=== PATIENT | male | born 1935 | race Caucasian/White ===

== ENCOUNTER → 2020-11-27 13:37 | Outpatient (REF) | payer MEDICARE, SELFPAY ==
--- NOTE | 2020-11-27 14:00 | CA_ITS ---
Transthoracic Echocardiogram Patient (Last, First, Middle): Keo Silva A Gender: Male Date of : 1935 Age: 85 Procedure Date: 11/27/2020 Procedure Type: Transthoracic Echocardiogram Location: OP Height: 177.8 cm Weight: 86.18 kg BSA: 2.04 m2 Heart Rate: bpm BP: 143 / 70 mmHg Communications Controller: JOHN Schrader MD: Silvestre Ross MD Cnc Milling Machinist: Richard Hunt MD Symptoms: I48.91 PERSISTENT AFIB, R06.02 SOB VALVULAR HEART DISEASE, Study Quality: Fair ECG Rhythm: Atrial Fibrillation Conclusions: - 1. Normal LV systolic function 2. Moderate left atrial enlargement 3. Mild aortic and mitral regurgitation 4. Normal RV systolic pressure 5. No pericardial effusion Findings Left Ventricle Normal left ventricular size, thickness, and systolic function. The visually estimated ejection fraction is between 55-60%. Diastolic function is indeterminate on the basis of available data. Right Ventricle Mildly increased right ventricular cavity size. There is normal right ventricular systolic function. Atria The left atrium is moderately dilated. There is no evidence of interatrial shunt. The right atrium is mildly dilated. Aortic Valve There is mild calcification of the aortic valve. There is no aortic valve stenosis. There is mild aortic valve regurgitation. Mitral Valve There is mild anterior and posterior mitral leaflet thickening. There is mild mitral valve regurgitation. There is no mitral valve stenosis. Pulmonic Valve The pulmonic valve was not well visualized. Tricuspid Valve Likely normal tricuspid valve structure and function. There is mild tricuspid valve regurgitation. The right ventricular systolic pressure is normal. The right ventricular systolic pressure is 35 mmHg. Normal right atrial pressure. There is no evidence of pulmonary hypertension. Great Vessels All visible segments of the aorta are normal in size. The pulmonary artery was not well visualized. Venous The inferior vena cava is normal in size and collapses greater than 50% with inspiration. Pericardium/Pleural There is no evidence of pericardial effusion. Prior Study Comparison Changes noted compared to prior study dated: 02/01/2018. RV systolic pressure measured on this study are within normal limits Measurements M-Mode Liner Measurements Normals - Women/Men AOV Cusps: 1.90 1.5-2.6 cm/m2 2D Linear Measurements IVSd: 1.16 0.6-0.9/0.6-1.0 cm LVIDd: 4.26 3.9-5.3/4.2-5.9 cm LVIDd Index: 2.09 2.4-3.2/2.2-3.1 cm/m2 LVIDs: 3.06 2.0-3.6 cm LVPWd: 1.18 0.7-1.1 cm Ao Root: 3.40 2.1-3.5 cm LA Diam: 4.50 2.7-3.8/3.0-4.0 cm LAIDs Index: 2.21 1.5-2.3 cm/m2 LV Mass: 218.59 67-162/88-224 g LV Mass Index: 107.15 43-95/49-115 g/m2 LVOT Diam: 2.30 3.0+(-)1.3 cm 2D Systolic Function EF 4C: 58.40 >55% EF 2C: 53.50 >55% EF BiP: 55.90 >55% Mitral Valve MV Pk E: 0.98 MV Decel Time: 127.00 PHT: 37.00 MVA PHT: 5.95 Decel [place]: 7.73 Aortic Valve AoV Pk Jomar: 1.17 AoV Pk Grad: 5.00 AI Pk Jomar: 3.91 AI [place]: 1.48 LVOT LVOT Pk Jomar: 0.72 LVOT Mn Jomar: 0.53 LVOT VTI: 0.17 LVOT Pk Grad: 2.00 LVOT Mn Grad: 1.00 LVOT Diam: 2.30 LVOT Area: 4.15 Diastolic Function MV Pk E: 0.98 Tricuspid Valve TR Pk Jomar: 2.83 TR Pk Grad: 32.00 RA Press: 3.00 RVSP: 35.00 Great Vessels Aorta Ao Root-2D: 3.40 2.0-3.7 cm Ao Asc: 3.60 2.1-3.4 cm Pulmonary Valve PV Pk Jomar: 0.99 Peak PV Grad: 4.00 Updated in Other Vendor System with Status of Final Richard Hunt MD electronically signed on 11/28/2020 1:13:50 PM with status of Final
== END ==
LOC: HO.CARD 13:37
PROVIDERS: Visit Provider Internal Medicine
DX: I48.19 Other persistent atrial fibrillation (principal); I38 Endocarditis, valve unspecified; R06.02 Shortness of breath
CPT/HCPCS: 93306

== ENCOUNTER → 2020-12-04 12:41 | Outpatient (REF) | payer MEDICARE, SELFPAY ==
--- NOTE | 2020-12-04 13:00 | ECG_ITS ---
Hook-up date: 2020-12-04 12:56:00 Duration: 47:59:00 Test Indications: PERSISTENT AFIB Medications: 61162 QRS complexes 289 Ventricular ectopics which represent <1 % of total QRS comp. * Supraventricular ectopics which represent % of total QRS comp. * Paced QRS complexs which represent % of total QRS comp. VENTRICULAR ECTOPY 279 Isolated 0 Bigeminal Cycles 5 Couplets 0 Runs 0 Beats in Runs * Beats LONGEST at * BPM at :: -- * Beats FASTEST at * BPM at :: -- SUPRAVENTRICULAR ECTOPY * Isolated * Couplets * Runs * Beats in Runs * Beats LONGEST at * BPM at :: -- * Beats FASTEST at * BPM at :: -- HEART RATES 39 MIN at 03:00:57 2020-12-05 66 AVG 165 MAX at 06:22:48 2020-12-05 LONGEST RR 2.0640 secs at 00:34:36 2020-12-05 S-T LEVELS Channel 1 - 128 mm at 12:56:00 2020-12-04 - 128 mm at 12:56:00 2020-12-04 Channel 2 - 128 mm at 12:56:00 2020-12-04 - 128 mm at 12:56:00 2020-12-04 Channel 3 - 128 mm at 03:21:51 -- - 128 mm at 03:21:51 Basic rhythm Atrial fibrillation No long pause or profound bradycardia Good rate control with average HR of 66 bpm Occasional Premature ventricular complexes Patient did not report any symptoms in the diary Referred By: Silvestre Ross Overread By: TAWNYA WASSERMAN MD
== END ==
LOC: HO.CARD 12:41
PROVIDERS: Visit Provider Internal Medicine
DX: I48.19 Other persistent atrial fibrillation (principal)
CPT/HCPCS: 93225; 93226

== ENCOUNTER → 2021-01-07 09:33 | Outpatient (BNVA) | payer MEDICARE, SELFPAY | PROVIDERS: Visit Provider Internal Medicine | DX: I48.19 Other persistent atrial fibrillation (principal); I25.10 Atherosclerotic heart disease of native coronary artery without angina pectoris; I38 Endocarditis, valve unspecified | CPT/HCPCS: 93005; 99212 ==

== ENCOUNTER 2021-02-23 06:11 | Outpatient (REF) | payer MEDICARE, SELFPAY ==
[2021-02-23 11:25] LABS: MANUAL DIFF FLAG NO
[2021-02-23 11:38] LABS: Basophils Percent Auto 0.9 % (0-2); Eosinophils Absolute Auto 0.1 X10*3/uL (0.0-0.4); Eosinophils Percent Auto 2.3 % (0-4); Hematocrit 32.9 % (42-52); Hemoglobin 10.7 g/dl (14.0-18.0); Imm Gran Abs Auto 0.02 X10*3/uL (0.00-0.03); Imm Gran Pct Auto 0.5 % (0.0-0.4); Lymphocytes Absolute Auto 1.3 X10*3/uL (1.2-4.9); Mean Corpuscular HGB Conc 32.5 g/dl (31.0-36.0); Mean Corpuscular Hemoglobin 33.9 pg (27.0-33.0); Mean Corpuscular Volume 104.1 fL (80-98); Monocytes Absolute Auto 0.5 X10*3/uL (0.1-1.2); Monocytes Percent Auto 10.7 % (2-11); NRBC Pct Auto 0.7 /100WBC (0.0-0.2); Neutrophils Absolute Auto 2.5 X10*3/uL (2.0-8.3); Neutrophils Percent Auto 56.6 % (45-73); Platelet Count 192 X10*3/uL (160-400); Red Blood Count 3.16 X10*6/uL (4.60-5.80); Red Cell Distribution Width 15.3 % (11.0-16.0); White Blood Count 4.4 X10*3/uL (4.8-10.8)
[2021-02-23 12:09] LABS: Alanine Aminotransferase 18 U/L (0-40); Anion Gap 14 (12-20); Aspartate Amino Transferase 17 U/L (5-37); Blood Urea Nitrogen 29 mg/dL (9-16); Calcium 8.6 mg/dL (8.4-10.2); Carbon Dioxide 21 mmol/L (22-29); Chloride 105 mmol/L (96-108); Cholesterol 106 mg/dL; Estimated Glomerular Filt Rate 59; Glucose Fasting 117 mg/dL (60-99); HDL Cholesterol 53 mg/dL; LDL Cholesterol Calculated 44 mg/dl; Potassium 4.5 mmol/L (3.3-5.1); Sodium 135 mmol/L (135-145); Triglycerides 48 mg/dL
[2021-02-23 12:10] LABS: TSH reflex Free T4 2.99 uIU/mL (0.32-4.0); Vitamin D 25-OH Total 28.1 ng/mL (>30)
[2021-02-23 12:24] LABS: Folate 18.8 ng/mL (> or = 4.0); Vitamin B12 400 pg/mL (200-900)
== END 2021-02-23 06:12 | disposition home or self-care (01) ==
LOC: HO.HMGCLDS 06:11
PROVIDERS: PCP Internal Medicine; Visit Provider Internal Medicine
DX: F32.9 Major depressive disorder, single episode, unspecified (principal); I25.10 Atherosclerotic heart disease of native coronary artery without angina pectoris; I48.19 Other persistent atrial fibrillation; R42 Dizziness and giddiness; I10 Essential (primary) hypertension
CPT/HCPCS: 36415; 80048; 80061; 82306; 82607; 82746; 84443; 84450; 84460; 85025

== ENCOUNTER 2021-05-22 06:35 | Outpatient (REF) | payer MEDICARE, SELFPAY ==
--- NOTE | ~2021-05-22 | XR_ITS ---
EXAMINATION: XR SHOULDER, LEFT CLINICAL INFORMATION: Left shoulder pain. COMPARISON: None TECHNIQUE: AP external rotation, Grashey, scapular Y, and axillary views of the left shoulder. FINDINGS: Elevation of the humeral head, likely indicating an underlying rotator cuff tendon tear. Acromioclavicular marginal osteophytes with lateral subacromial spurring. Glenohumeral joint space narrowing with marginal osteophytes. No osseous erosion. No acute fracture. XR/XR shoulder LT min 2V IMPRESSION: Elevation of the humeral head, likely indicating an underlying rotator cuff tendon tear. 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
[2021-05-22 11:09] LABS: MANUAL DIFF FLAG NO
[2021-05-22 11:40] LABS: Basophils Percent Auto 0.6 % (0-2); Eosinophils Absolute Auto 0.1 X10*3/uL (0.0-0.4); Eosinophils Percent Auto 2.1 % (0-4); Hematocrit 31.8 % (42-52); Hemoglobin 10.5 g/dl (14.0-18.0); Imm Gran Abs Auto 0.03 X10*3/uL (0.00-0.03); Imm Gran Pct Auto 0.5 % (0.0-0.4); Lymphocytes Absolute Auto 1.1 X10*3/uL (1.2-4.9); Lymphocytes Percent Auto 18.1 % (20-40); Mean Corpuscular Hemoglobin 34.2 pg (27.0-33.0); Mean Corpuscular Volume 103.6 fL (80-98); Mean Platelet Volume 11.7 fL (9.4-12.4); Monocytes Absolute Auto 0.6 X10*3/uL (0.1-1.2); NRBC Pct Auto 1.1 /100WBC (0.0-0.2); Neutrophils Absolute Auto 4.3 X10*3/uL (2.0-8.3); Neutrophils Percent Auto 68.7 % (45-73); Platelet Count 213 X10*3/uL (160-400); Red Blood Count 3.07 X10*6/uL (4.60-5.80); Red Cell Distribution Width 14.9 % (11.0-16.0); White Blood Count 6.2 X10*3/uL (4.8-10.8)
[2021-05-22 12:20] LABS: Alanine Aminotransferase 15 U/L (0-40); Anion Gap 13 (12-20); Aspartate Amino Transferase 15 U/L (5-37); Blood Urea Nitrogen 20 mg/dL (9-16); Carbon Dioxide 24 mmol/L (22-29); Chloride 103 mmol/L (96-108); Cholesterol 106 mg/dL; Estimated Glomerular Filt Rate 53; Glucose Fasting 119 mg/dL (60-99); HDL Cholesterol 52 mg/dL; Iron 145 mcg/dL (45-160); LDL Cholesterol Calculated 43 mg/dl; Potassium 4.4 mmol/L (3.3-5.1); Sodium 136 mmol/L (135-145); Triglycerides 58 mg/dL
[2021-05-22 12:22] LABS: Vitamin D 25-OH Total 57.6 ng/mL (>30)
[2021-05-24 03:57] LABS: Folate 17.2 ng/mL (> or = 4.0); Vitamin B12 445 pg/mL (200-900)
[2021-05-26 15:06] LABS: Percent Iron Saturation 55 % (15-50); Total Iron Binding Capacity 263 mcg/dL (228-428); Unsaturated Iron Binding 118 ug/dL
== END 2021-05-22 06:36 | disposition home or self-care (01) ==
LOC: HO.HMGCX 06:35
PROVIDERS: PCP Internal Medicine; Visit Provider Internal Medicine
DX: I48.19 Other persistent atrial fibrillation (principal); R42 Dizziness and giddiness; I25.10 Atherosclerotic heart disease of native coronary artery without angina pectoris; G25.3 Myoclonus; D53.9 Nutritional anemia, unspecified; I10 Essential (primary) hypertension; M25.512 Pain in left shoulder
CPT/HCPCS: 36415; 73030; 80048; 80061; 82306; 82607; 82746; 83540; 84450; 84460; 85025

== ENCOUNTER → 2021-05-28 12:32 | Outpatient (BNVA) | payer MEDICARE, SELFPAY | PROVIDERS: Visit Provider Orthopaedic Surgery | DX: M75.102 Unspecified rotator cuff tear or rupture of left shoulder, not specified as traumatic (principal); M12.812 Other specific arthropathies, not elsewhere classified, left shoulder | CPT/HCPCS: 20610; 99202; J1040 ==

== ENCOUNTER 2021-06-08 10:02 | Outpatient (REF) | payer MEDICARE, SELFPAY ==
--- NOTE | 2021-06-08 12:15 | MHC.AU.AHA ---
Adult Audiological Evaluation Date of Visit: 06/08/21 Needle Punch Machine Operator Used: Not Applicable Reason for Appointment: Audiologic re-evaluation due to increasing hearing difficulties. Keo notes he does not regularly wear his hearing aids due to the fact that sounds startle him when using the aids. He is also having difficulty with the right aid insertion and it is not staying in his ear well. When he uses the hearing aids, he typically just wears the left aid. Previous Hearing Test Results: 04/15/2020 [facility] Bilateral moderate to severe sensorineural hearing loss with 44% speech understanding for the right ear and 48% for the left ear at 80 dB HL. Ear History: History of occupational noise exposure?: Yes Medical History: Medical History: Heart Problems, High Blood Pressure, High cholesterol, History of neck surgery Medication List: Xarelto, Terazosin, Simvastatin, Atenolol, Tramadol, Vitamin D3 Hearing Instrument History- Right Ear: Maritime Officer: [employer] Model: [employer] 1600 MORENA-R Serial Number: [id number] Battery Size: Rechargeable Repair Warranty: 06/29/2021 Dispensed By: [facility] Date of Fittin04/13/2018 Hearing Instrument History- Left Ear: Maritime Officer: [employer] Model: [employer] 1600 MORENA-R Serial Number: [id number] Battery Size: Rechargeable Warranty: 06/29/2021 Dispensed By: [facility] Date of Fittin04/13/2018 Otoscopy: Right Ear: Partially occluded with cerumen Left Ear: Mostly occluding cerumen. Could not remove in office due to use of blood thinner Tympanometry: Tympanometry performed due to: To determine if cerumen blockage is fully occluding canal(s) Right Ear: Normal Middle Ear System (Type A) Left Ear: Normal Middle Ear System (Type A) Hearing Evaluation: Transducer(s) Used: Insert Earphones Bone Conduction Method: Conventional Audiometry Stimuli Used: Pure Tones Right Ear: Description of Hearing: Moderately-severe to profound sensorineural hearing loss Left Ear: Description of Hearing: Moderate to severe sensorineural hearing loss Speech Recognition Threshold (SRT): Method Used: Monitored Live Voice Stimuli Used: Right Ear: 55 dB HL Left Ear: 50 dB HL Word Discrimination: Method: Recorded Lists Word Lists Used: NU-6 Right Ear: 32% at 80 dB HL Left Ear: 56% at 80 dB HL Most Comfortable Level (MCL): Right Ear: 80 dB HL Left Ear: 80 dB HL Comparison: Compared to most recent evaluation: Overall hearing thresholds have decreased approximately 5 dB for both ears with speech discrimination ability decreasing from 44% in 2020 to 32% today. Speech understanding for the left ear has improved from 48% to 56% today. Interpretation of Results: It is likely Keo's right ear speech discrimination ability has decreased despite relatively stable hearing thresholds due to the fact he is not using the right aid. Extensively counseled about the need to use the aids every day, all day for the auditory system to remain stimulated for best benefit. Because Keo startles so often when wearing the aids, decreased the overall gain of the hearing aids to try to help him tolerate the sound better and increase the use of the aids. Provided a handout regarding Communication Strategies for the family to use to improve Keo's speech understanding as much as possible. Recommendations: -Follow-up with either Dr. Tsang or Otolarygologist Dr. Perera for cerumen removal. -Hearing aid maintenance performed today. -Reinstructed insertion of hearing aids. If Keo continues to have difficulties with insertion, advise appointment to take impressions of the ear for custom earmolds. -Audiological re-evaluation in one year. Will send a reminder card. Diagnosis: Primary Diagnosis: H90.3 Bilateral Sensorineural Hearing Loss Secondary Diagnosis: H61.22 Impacted Cerumen, Left Ear Services Performed: Comprehensive Audiological Evaluation (CPT 66208) Tympanometry (CPT 64793) Signature: Provider: Ignacia Santana, [facility]
== END 2021-06-08 10:03 | disposition home or self-care (01) ==
LOC: HO.SH 10:02
PROVIDERS: Visit Provider Internal Medicine
DX: H90.3 Sensorineural hearing loss, bilateral (principal); H61.22 Impacted cerumen, left ear
CPT/HCPCS: 92557; 92567

== ENCOUNTER 2021-11-12 07:24 | Day surgery (SDC) | payer MEDICARE, SELFPAY ==
--- NOTE | 2021-11-11 11:41 | P.CONAN_ITS ---
Documented by User: Lynnette Saul NP 11/11/21 11:49 HPI - Anesthesia Eval Consult details Narrative: 86yo M for Bone Marrow Biopsy Xarelto for afib Optimized per cardiology [facility] Active Problems Active Problems: All Active Problems (Updated 10/04/21 @ 03:15 by Ambika Tsang MD) Rotator cuff tear arthropathy of left shoulder (Acute) Chronic fatigue and malaise (Acute) Macrocytic anemia (Acute) Myoclonic jerking (Acute) Hearing loss (Acute) Cervical spondylosis with radiculopathy (Acute) Benign prostatic hyperplasia (Acute) Mild valvular heart disease (Acute) Depression (Acute) Atherosclerotic cardiovascular disease (Acute) Persistent atrial fibrillation (Acute) Past Medical History Medical History (Updated 10/04/21 @ 03:15 by Ambika Tsang MD) Anemia Atherosclerotic cardiovascular disease Benign prostatic hyperplasia Cervical spondylosis with radiculopathy Chronic fatigue and malaise Depression Hearing loss Left hydrocele Macrocytic anemia Mild valvular heart disease Myoclonic jerking Persistent atrial fibrillation Right rotator cuff tear Shoulder pain, left Family History Family History Father CVD (cardiovascular disease) Mother No problems noted. Surgical History Surgical History History of fusion of cervical spine History of heart artery stent Social History Social History Household Members: Spouse Housing: House Alcohol intake: current Alcohol intake frequency: a few times a month Alcohol type: beer Patient Tobacco Use Status: Former Tobacco user Tobacco use type: Cigarette Cigarette Packs Per Day: 0.5 Years Smoked: 1 e-Cigarette/Vaping Use: Never Used Second Hand Smoke Exposure: No Advance Directives: No Advance Directives Information Provided: Yes Current occupational status: retired Meds Allergies Allergy/AdvReac Type Severity Reaction Status Date / Time No Known Allergies Allergy Verified 10/04/21 02:56 [No Known Allergies*] Home Medications Medication Instructions Recorded Confirmed Last Taken Type terazosin 1 mg capsule 2 mg PO BEDTIME cap 01/07/21 10/04/21 Unknown History acetaminophen 650 mg 650 mg PO Q12H 02/22/21 10/04/21 Unknown History tablet,extended release (Arthritis Pain Reliever) cholecalciferol (vitamin D3) 125 125 mcg PO DAILY 05/18/21 10/04/21 Unknown History mcg (5,000 unit) capsule clonazepam 0.5 mg tablet 0.5 mg PO BID 09/06/21 10/04/21 Unknown History Exam Exam Date and Time: November 11, 2021 1141 Pertinent Lab Results Pertinent Lab Results: Laboratory Tests 05/22/21 07/05/21 09/06/21 06:40 09:28 09:32 WBC 7.6 Hgb 10.4 L Hct 32.0 L Plt Count 198 Sodium 136 Potassium 4.4 Chloride 103 Carbon Dioxide 24 BUN 22 H Creatinine 1.29 Narrative Narrative: EK atrial fibrillation at 68/Min; nonspecific ST-T changes. Echocardiogram-11/2020 Conclusions: 1. Normal LV systolic function? 2. Moderate left atrial enlargement ? 3. Mild aortic and mitral regurgitation ? 4. Normal RV systolic pressure? 5. No pericardial effusion? ? ? Holter-11/2020 Basic rhythm Atrial fibrillation No long pause or profound bradycardia Good rate control with average HR of 66 bpm Occasional Premature ventricular complexes Patient did not report any symptoms in the diary Assessment and Plan Assessment Anesthesia Assessment: Chart Reviewed Documented by User: Jeremy Gaytan MD 11/12/21 07:39 PMF Past Medical History Medical History (Updated 10/04/21 @ 03:15 by Ambika Tsang MD) Anemia Atherosclerotic cardiovascular disease Benign prostatic hyperplasia Cervical spondylosis with radiculopathy Chronic fatigue and malaise Depression Hearing loss Left hydrocele Macrocytic anemia Mild valvular heart disease Myoclonic jerking Persistent atrial fibrillation Right rotator cuff tear Shoulder pain, left Family History Family History Father CVD (cardiovascular disease) Mother No problems noted. Family history of problems with anesthesia: No Surgical History Surgical History History of fusion of cervical spine History of heart artery stent History of Problems with Anesthesia: No Social History Social History Household Members: Spouse Housing: House Alcohol intake: current Alcohol intake frequency: a few times a month Alcohol type: beer Patient Tobacco Use Status: Former Tobacco user Tobacco use type: Cigarette Cigarette Packs Per Day: 0.5 Years Smoked: 1 e-Cigarette/Vaping Use: Never Used Second Hand Smoke Exposure: No Advance Directives: No Advance Directives Information Provided: Yes Current occupational status: [employer] Allergies Allergy/AdvReac Type Severity Reaction Status Date / Time No Known Allergies Allergy Verified 10/04/21 02:56 [No Known Allergies*] Home Medications Medication Instructions Recorded Confirmed Last Taken Type terazosin 1 mg capsule 2 mg PO BEDTIME cap 01/07/21 10/04/21 Unknown History acetaminophen 650 mg 650 mg PO Q12H 02/22/21 10/04/21 Unknown History tablet,extended release (Arthritis Pain Reliever) cholecalciferol (vitamin D3) 125 125 mcg PO DAILY 05/18/21 10/04/21 Unknown History mcg (5,000 unit) capsule clonazepam 0.5 mg tablet 0.5 mg PO BID 09/06/21 10/04/21 Unknown History Exam Airway Mallampati Class: II TM Dist: >3cm Neck ROM: Full Denture: Upper Loose/Missing/Broken Teeth: Yes Heart: irreg irreg s1s2 Lungs: cta b/l Assessment and Plan Assessment Anesthesia Assessment: Anesthesia Plan Discussed Final Anesthetic Review Family History of Problems with Anesthesia: No History of Problems with Anesthesia: No NPO: Yes ASA Class: III Final Preanesthetic Review: No Changes in Pt Med Stat, Meds/Allgs Chart Reviewed, Consent Obtained/Reviewed and Anes Risks/Benef Reviewed Patient Risk: Intermediate Procedure Risk: Low Assessment/Block/Sedation in SS: Assess/Block/Sedation-SS Anesthetic Plan Anesthetic Plan: MAC: and Agree w/ Assess. and Plan Disposition: Standard PACU
[2021-11-12 08:05] VITALS: BMI 26.5
[2021-11-12 08:15] VITALS: BP 157/78; PULSE 80; RESP 18; TEMP 36.6; O2SAT 98
[2021-11-12] MEDS: Lactated Ringers 1,000 ML 100 ML IVCONT (08:30)
[2021-11-12 08:44] LABS: Baso%MD 0.4 %; Eos%MD 0.6 %; Hematocrit 29.9 % (42.0-52.0); IG%MD 0.2 %; Lymph%MD 18.1 %; Mean Corpuscular HGB Conc 33.4 g/dl (31.0-36.0); Mean Corpuscular Hemoglobin 33.7 pg (27.0-33.0); Mean Corpuscular Volume 100.7 fL (80.0-98.0); Mean Platelet Volume 10.3 fL (9.4-12.4); Mono%MD 9.5 %; NRBC Pct Auto 0.4 /100WBC (0.0-0.2); Neut%MD 71.2 %; Platelet Count 195 X10*3/uL (160-400); Red Blood Count 2.97 X10*6/uL (4.60-5.80); Red Cell Distribution Width 16.1 % (11.0-16.0); White Blood Count 5.3 X10*3/uL (4.8-10.8)
[2021-11-12 09:04] VITALS: BP 129/72; PULSE 87; RESP 16; TEMP 36.7; O2SAT 93
[2021-11-12 09:19] VITALS: BP 135/81; PULSE 88; RESP 16; O2SAT 96
--- NOTE | 2021-11-12 09:26 | PM.HEMONCBM ---
Bone Marrow Aspiration - Bone Marrow Aspiration Procedure:: Diagnostic bone marrow aspiration/biopsy Pre Op Diagnosis:: Macrocytic anemia rule out MDS Post Op Diagnosis:: Same as above Surgeon:: Marnie Adan MD Anesthesia:: Monitored anesthesia and local anesthesia Consent:: Informed consent obtained from the patient for the procedure. Pros and cons of biopsy explained. The patient was willing to proceed with the procedure under monitored anesthesia. Procedure in Detail:: The patient was positioned prone and the right posterior superior iliac spine prepped and draped. Under aseptic precautions, 10 ml of 1% lidocaine used for local anesthesia. With the Jamshidi needle, 10 ml of aspirate and 1cm core biopsy obtained without any complications. The patient tolerated the procedure well. Bandage was applied and patient was positioned on back for 10 to 15 minutes after the procedure. The patient was advised to call us if develops any pain or swelling at the surgical site. Follow up in 2 weeks.
[2021-11-12 09:27] LABS: Bone Marrow SEE SEPARATE REPORT
[2021-11-12 09:34] VITALS: BP 136/71; PULSE 66; RESP 16; O2SAT 97
[2021-11-12 09:53] VITALS: BP 148/80; PULSE 67; RESP 16; TEMP 36.7; O2SAT 97
[2021-11-12 10:03] VITALS: BP 148/80; PULSE 71; RESP 16; O2SAT 100
[2021-11-12 10:06] LABS: Band Neutrophils Percent 5 % (3-5); Basophils Abs Manual 0.2 X10*3/uL (0.0-0.2); Basophils Percent Manual 3 % (0-2); Eosinophils Absolute Manual 0.1 X10*3/uL (0.0-0.4); Eosinophils Percent Manual 1 % (0-4); Lymphocytes Absolute Manual 0.6 X10*3/uL (1.2-4.9); Lymphocytes Percent Manual 11 % (20-40); Monocytes Absolute Manual 0.2 X10*3/uL (0.1-1.2); Monocytes Percent Manual 3 % (2-11); Neutrophils Absolute Manual 4.3 X10*3/uL (2.0-8.3); Neutrophils Percent Manual 77 % (45-73); Nucleated Red Blood Cells 2 /100WBC (0-0)
[2021-11-12 10:08] LABS: Acanthocytes 1+ (0-2) /OIF; Macrocytosis 1+ (5-14) /OIF; Ovalocytes 1+ (5-14) /OIF; Platelet Estimate NORMAL (NORMAL); Platelet Morphology Comment NORMAL; RBC Morphology NOTED
[2021-11-12 10:09] LABS: Polychromasia 1+ (0-2) /OIF; Tear Drop Cells 1+ (0-2) /OIF
== END 2021-11-12 10:42 | disposition home or self-care (01) ==
PROVIDERS: Pathology Anatomic Pathology & Clinical Pathology; PCP Internal Medicine; Visit Provider Internal Medicine
PROC: (CPT 38221; principal; 2021-11-12 08:30)
DX: D53.9 Nutritional anemia, unspecified (principal); N28.9 Disorder of kidney and ureter, unspecified; R53.82 Chronic fatigue, unspecified; G25.3 Myoclonus; I25.10 Atherosclerotic heart disease of native coronary artery without angina pectoris; Z98.61 Coronary angioplasty status; I48.19 Other persistent atrial fibrillation; F32.9 Major depressive disorder, single episode, unspecified; Z79.899 Other long term (current) drug therapy; Z87.891 Personal history of nicotine dependence
CPT/HCPCS: 38222; 36415; 85007; 85027; 85097; 88184; 88185; 88237; 88264; 88280; 88305; 88311; 88313; 88342; 88374; J1642

== ENCOUNTER → 2022-01-10 10:36 | Outpatient (BNVA) | payer MEDICARE, SELFPAY | PROVIDERS: PCP Internal Medicine; Referring Provider Internal Medicine; Visit Provider Internal Medicine | DX: I48.19 Other persistent atrial fibrillation (principal); I25.10 Atherosclerotic heart disease of native coronary artery without angina pectoris; I38 Endocarditis, valve unspecified; I10 Essential (primary) hypertension | CPT/HCPCS: 93005; 99212 ==

== ENCOUNTER 2022-04-01 13:02 | Inpatient (IN) | payer MEDICARE, SELFPAY ==
--- NOTE | ~2022-04-01 | CT_ITS ---
EXAMINATION: CT CHEST, ABDOMEN AND PELVIS WITHOUT CONTRAST CLINICAL INFORMATION: Fall with nausea and vomiting COMPARISON: Chest CT 03/06/2016 TECHNIQUE: Multidetector volumetric imaging was performed from the thoracic inlet through the pubic symphysis. Sagittal and coronal reformatted images were obtained on the technologist's workstation. Axial MIP volume rendering provided. This CT examination was performed using dose optimization techniques as appropriate, variously including the following: *Automated exposure control *Adjustment of mA and/or kV according to patient size (this includes techniques or standardized protocols for targeted exams where dose is matched to indication/reason for exam; i.e. extremities or head) *Use of iterative reconstruction technique DLP: 432 mGy-cm FINDINGS: CHEST: Lungs: No suspicious pulmonary nodule or mass. Punctate calcified granuloma in the superior segment right lower lobe. Mixed groundglass and small patchy areas of consolidation in the peripheral left upper lobe with small centrilobular nodules. Mild dependent bibasilar atelectasis. No pneumothorax. Central airways are clear. Mediastinum: Prominent heart size. No pericardial effusion. Extensive three-vessel coronary calcifications. Mild aortic valvular calcifications. No thoracic aortic aneurysm. Normal caliber central pulmonary trunk. No mediastinal hematoma. No mediastinal or hilar lymphadenopathy by size criteria. AP window lymph node measures 0.8 cm in short axis, likely reactive and more prominent than on prior. Pericardium/Pleura: Trace left pleural effusion. No right pleural effusion. Chest Wall/Axilla: Unremarkable. ABDOMEN/PELVIS: Liver, Gallbladder, Biliary Tree: Mild hepatic hypoattenuation compatible with mild steatosis. Slightly prominent caudate lobe. No liver lesion. No biliary ductal dilation. The gallbladder is unremarkable with no evidence of radiopaque gallstones, gallbladder wall thickening, or pericholecystic inflammatory changes. Pancreas: Unremarkable. Spleen: Unremarkable. Adrenal Glands: Unremarkable. Kidneys and Ureters: The kidneys are normal in size, shape, and attenuation. No hydronephrosis or hydroureter or calculi seen. Prominent symmetric bilateral perirenal fascial stranding/edema. No discrete perinephric fluid collection. Bladder: Unremarkable. Gastrointestinal Tract: Small hiatal hernia. Colonic diverticulosis. No evidence of acute diverticulitis. No dilated bowel loops. No bowel wall thickening. No ascites or free air. Couple small appendicoliths noted in the otherwise normal-appearing appendix. Abdominal Wall: No hernia is demonstrated. Lymphovascular Structures: Lymph nodes: No lymphadenopathy. Vascular: Extensive atherosclerotic vascular calcifications. Normal caliber abdominal aorta. Pelvic Viscera: Prostate gland appears mildly enlarged minimally indenting into the base of the bladder. OSSEOUS STRUCTURES: No acute fracture or suspicious osseous lesions identified. 2.4 cm lucent lesion with fatty attenuation in the left iliac bone, presumably a intraosseous lipoma, with nonaggressive appearance. CT/CT abdomen pelvis wo con IMPRESSION: 1. No acute injury identified in the chest, abdomen, or pelvis. 2. No acute fracture. 3. Patchy airspace opacities in the left upper lobe, possibly pneumonia. Correlate clinically. 4. Trace left pleural effusion. 5. No acute process identified in the abdomen. 6. Extensive colonic diverticulosis. No evidence of acute diverticulitis. 7. No evidence of bowel obstruction. 8. Multiple additional findings, as detailed above.
--- NOTE | ~2022-04-01 | CT_ITS ---
EXAMINATION: NONCONTRAST HEAD CT NONCONTRAST CERVICAL SPINE CT INDICATION INFORMATION: Fall with nausea and vomiting COMPARISON: Head CT 12/14/[address] 03/06/2016 TECHNIQUE: Separate noncontrast CT examinations of the head and cervical spine were performed. Coronal and sagittal images were created for each examination at the technologist workstation. This CT examination was performed using dose optimization techniques as appropriate, variously including the following: *Automated exposure control *Adjustment of mA and/or kV according to patient size (this includes techniques or standardized protocols for targeted exams where dose is matched to indication/reason for exam; i.e. extremities or head) *Use of iterative reconstruction technique DLP: 1215 mGy-cm FINDINGS: HEAD: No intra or extra-axial fluid collection, hemorrhage, or mass. No ventriculomegaly. No midline shift or herniation. Basal cisterns are patent. Pineda-white matter differentiation is maintained. No territorial encephalomalacia. Proportional prominence of the ventricles and sulcal spaces is consistent with mild volume loss. Patchy periventricular and deep white matter hypoattenuation is consistent with mild small vessel ischemic changes. No calvarial fracture or soft tissue abnormality. The mastoid air cells and visualized portions of the paranasal sinuses are well aerated. CERVICAL SPINE: Alignment: Minimal retrolisthesis at C3-C4 and C5-C6. Mild grade 1 anterolisthesis at C4-C5 and C7-T1, all unchanged since prior 2015. Vertebra: No acute fracture. No prevertebral soft tissue swelling. Degenerative disc disease: Status post posterior fusion at C1-C2 with rods and lateral mass screws. Fixation is intact. Ankylosis of C1-C2 on the left side including ankylosis of the left facets at C2-C3. Partial ankylosis of the C2-C3 vertebral bodies. Ankylosis of the C3-C4 vertebral bodies. Advanced degenerative disc disease at C3-C4, C5-C6 and C6-C7 with severe disc height loss, endplate sclerosis, and endplate proliferative change. Moderate disc degenerative changes at C4-C5 and C7-T1. Multilevel bilateral facet arthrosis and uncovertebral spurring. Additional degenerative change at the articulation of the left occipital condyle and lateral mass of C1 on the left. Other findings: No cervical lymphadenopathy. Visualized major salivary glands and thyroid gland are unremarkable. Visualized lung apices are clear. CT/CT cervical spine wo con IMPRESSION: 1. No intracranial hemorrhage or calvarial fracture. 2. No traumatic subluxation or acute cervical spine fracture.
--- NOTE | ~2022-04-01 | XR_ITS ---
EXAMINATION: XR CHEST CLINICAL INFORMATION: Shortness of breath. COMPARISON: 03/06/2016 chest radiograph. TECHNIQUE: Frontal view of the chest was obtained. FINDINGS: Patchy infiltrates are seen bilaterally most pronounced in the left upper lobe. The heart and mediastinal structures are unremarkable. XR/XR chest 1V IMPRESSION: Bilateral patchy infiltrates are nonspecific, but suggest an infectious/inflammatory process however, a cardiogenic etiology cannot be excluded. Correlate clinically.
--- NOTE | 2022-04-01 13:18 | ECG_ITS ---
Test Reason : N/V Blood Pressure : / mmHG Vent. Rate : 084 BPM Atrial Rate : 000 BPM P-R Int : 000 ms QRS Dur : 090 ms QT Int : 346 ms P-R-T Axes : 000 041 175 degrees QTc Int : 408 ms Atrial fibrillation Nonspecific ST and T wave abnormality Abnormal ECG When compared with ECG of 05-APR-2017 14:10, Inverted T waves have replaced nonspecific T wave abnormality in Lateral leads Referred By: Angélica Pulido Electronically Signed By:CHRIST NGUYEN
--- NOTE | 2022-04-01 13:21 | ED.GENADULT ---
HPI - General Adult General Chief complaint: General Medical Stated complaint: n/v x 1 week Time Seen by Provider: 04/01/22 13:18 Source: patient, family () and EMS Mode of arrival: EMS Limitations: no limitations History of Present Illness HPI narrative: Patient is an 86 year old male presenting to the emergency department today with nausea, vomiting, and a recent fall. Patient states that 2 days ago, he received his latest ProCrit shot and has felt terrible ever since with nausea, vomiting, and body aches. Patient states that his grandson was recently over who tested positive for COVID-19. Patient states that he did have a fall yesterday in the bathroom but did not strike his head or have any loss of consciousness. Patient states that he follows with hematology here for anemia and that's who gives him his procrit. Patient denies any dizziness, lightheadedness, abdominal pain, chills, blurry vision, double vision, loss of vision, chest pain, difficulty breathing, shortness of breath, back pain, night sweats, pain with urination, increased urinary frequency, increased urinary urgency, blood in his urine or stool, syncope or a near syncopal episode, recent trauma or falls, bowel incontinence, bladder incontinence, bowel retention, bladder retention, or any other complaints at this time. Onset (ago): day(s) (2) Severity: moderate Severity scale (1-10): 3 Quality: dull Pain Consistency: constant Relieving factors: none Exacerbating factors: none Associated symptoms: fever/chills and nausea/vomiting Treatments prior to arrival: none Related Data Home Medications Medication Instructions Recorded Confirmed acetaminophen 650 mg 650 mg PO Q12H 02/22/21 04/01/22 tablet,extended release (Arthritis Pain Reliever) rivaroxaban 20 mg tablet (Xarelto) 20 mg PO BEDTIME 01/12/22 04/01/22 Previous Rx's Medication Instructions Recorded terazosin 1 mg capsule 2 mg PO BEDTIME #180 caps 02/15/22 atenolol 25 mg tablet 50 mg PO DAILY #90 tabs 03/01/22 tramadol 50 mg tablet 50 mg PO BID PRN shoulder pain #60 03/29/22 tabs Allergies Allergy/AdvReac Type Severity Reaction Status Date / Time No Known Allergies Allergy Verified 03/29/22 13:36 [No Known Allergies*] Review of Systems Constitutional: Constitutional: Reports no additional constitutional complaints, Reports body ache(s), Denies chills, Reports fever(s) and Denies night sweats Eyes: Eyes: Reports no additional eye complaints, Denies blurry vision, Denies change in vision, Denies diplopia, Denies eye discharge, Denies loss of vision and Denies eye pain ENT: Denies dizziness Cardiovascular: Cardiovascular: Reports no additional cardiovascular complaints, Denies chest pain, Denies lightheadedness, Denies Loss of Consciousness and Denies dyspnea Respiratory: Respiratory: Reports no additional respiratory complaints and Denies dyspnea Gastrointestinal: Gastrointestinal: Reports no additional gastrointestinal complaints, Denies abdominal pain, Denies melena, Denies hematochezia, Denies change in bowel habits, Denies change in stool character, Reports nausea and Reports vomiting Genitourinary: Genitourinary: Reports no additional male genitourinary complaints, Denies hematuria, Denies oliguria, Denies difficulty urinating, Denies dysuria, Denies urinary frequency, Denies urinary hesitancy, Denies urinary incontinence and Denies urinary urgency Musculoskeletal: Musculoskeletal: Reports no additional musculoskeletal complaints, Denies numbness and Denies tingling Neurologic: Denies dizziness, Denies loss of vision, Denies numbness and Denies tingling Psychiatric: Psychiatric: Reports no additional psychiatric complaints Endocrine: Endocrine: Reports no additional endocrine complaints Hematologic/Lymphatic: Hematologic/Lymphatic: Reports no additional hematologic/lymphatic complaints Allergic/Immunologic: Allergic/Immunologic: Reports no additional allergic/immunologic complaints [facility] Past Medical History Attestation statement: The following information was validated with the patient. Source: old records reviewed Medical History (Updated 04/01/22 @ 17:33 by GRACIELA Gomez) Atherosclerotic cardiovascular disease Benign prostatic hyperplasia Cervical spondylosis with radiculopathy Chronic fatigue and malaise Depression Hearing loss Left hydrocele Macrocytic anemia Mild valvular heart disease Myoclonic jerking Persistent atrial fibrillation Right rotator cuff tear Shoulder pain, left Surgical History History of bone marrow biopsy History of fusion of cervical spine History of heart artery stent Family History Family History Father CVD (cardiovascular disease) Mother No problems noted. Social History Social History Household Members: Spouse Housing: House Are you a primary rn intensive care unit to a significant other at home: No Do you presently have visiting nurse or other home services: No Alcohol intake: current Alcohol intake frequency: a few times a month Alcohol type: beer Patient Tobacco Use Status: Former Tobacco user Tobacco use type: Cigarette Cigarette Packs Per Day: 0.5 Years Smoked: 1 e-Cigarette/Vaping Use: Never Used Second Hand Smoke Exposure: No Advance Directives: No Advance Directives Information Provided: No service: No Current occupational status: retired Cognitive needs: No Hearing needs: Yes Vision needs: Yes Physical Exam ED Vital Signs: Vital Signs - 24 hr 04/01/22 13:36 04/01/22 15:30 04/01/22 15:31 Temperature 104.2 F H 102.4 F H 102.4 F H Pulse Rate 79 75 Respiratory Rate 19 11 L Blood Pressure 132/53 L 110/53 L Pulse Oximetry 96 98 Oxygen Delivery Method Room Air Room Air BMI result Body Mass Index 24.3 Const General: cooperative, no acute distress, alert and awake Nutritional Appearance: well nourished Orientation/consciousness: patient oriented x3 Limitations: no limitations HENMT Head: Yes normal to inspection and Yes atraumatic Ears: hearing grossly normal bilaterally and external ears normal General nose exam: Normal external nose present, no nasal discharge noted and no epistaxis Face and sinus: Yes normal facial exam, No abrasion and No laceration Mouth: Normal oral and palatal mucosa present, no drooling and no muffled voice Eyes General: appearance normal, both eyes and all related structures Periorbital: periorbital findings normal Eyelids: Yes eyelids normal Conjunctivae: conjunctivae normal Pupils: Equal, round and reactive pupils present EOM: EOMs intact bilaterally Neck Neck: Yes normal visual inspection, Yes full ROM and Yes no lymphadenopathy Chest Chest palpation & inspection: normal inspection of the chest Resp Effort & Inspection: normal respiratory effort and able to speak in complete sentences Auscultation: clear to auscultation bilaterally Cardio Rate: regular rate Rhythm: regular rhythm GI Inspection: Yes normal to inspection Neuro Other: patient has a myclonic jerk present that occurs randomly General: patient oriented x3 and moves all extremities Cranial nerves: Yes Equal, round and reactive pupils present Cognition (Neuro): normal cognition Motor exam (neuro): 5/5 motor strength present throughout Sensory Exam: Normal double simultaneous stimulation for sensation Coordination: [id number] test normal Extrem General: Yes normal to inspection, Yes full ROM and Yes capillary refill normal Psych Appearance: grossly normal Mental Status: mental status grossly normal Affect: normal affect Attitude: cooperative Thought process: Normal thought process present Thought content: Normal thought content present Insight: Good insight present (Psych) Medical Decision Making MDM Narrative Medical decision making narrative: Patient is an 86 year old male presenting to the emergency department today with body aches, fever, nausea, and vomiting. Patient's physical exam was significant for a fever of 104. Patient's blood work showed a chronic anemia and leukopenia. Patient's EKG was unremarkable. Patient's chest CT showed a left sided pneumonia. Patient's head and C-Spine CT showed no acute process. Began to have suspicions of sepsis in this patient at 1425.I explained my physical exam findings as well as all test results to the patient and the patient's . I answered all questions asked by the patient and the patient's . Patient received IV fluids, zofran, and antibiotics. I spoke to Dr. Paniagua who agreed to hospital admission. Patient and the patient's verbalized agreement and understanding with this treatment plan and admission. Differential Diagnosis Differential Diagnosis: pneumonia Medical Records Medical records reviewed: Yes I reviewed the patient's medical records. Lab Data Lab results reviewed: Yes I reviewed the patient's lab results. Result diagrams: 04/01/22 13:56 04/01/22 13:56 Labs: Lab Results 04/01/22 04/01/22 04/01/22 Range/Units 13:56 13:56 13:56 WBC 8.5 (4.8-10.8) X10*3/uL RBC 2.65 L (4.60-5.80) X10*6/uL Hgb 9.2 L (14.0-18.0) g/dl Hct 26.9 L (42.0-52.0) % MCV 101.5 H (80.0-98.0) fL MCH 34.7 H (27.0-33.0) pg MCHC 34.2 (31.0-36.0) g/dl RDW 15.9 (11.0-16.0) % Plt Count 157 L (160-400) X10*3/uL MPV 10.8 (9.4-12.4) fL Immature Gran % (Auto) 0.6 H (0.0-0.4) % Neut % (Auto) 90.3 H (45-73) % Lymph % (Auto) 2.9 L (20-40) % Isabella % (Auto) 6.0 (2-11) % Eos % (Auto) 0.0 (0-4) % Baso % (Auto) 0.2 (0-2) % Lymph # (Auto) 0.3 L (1.2-4.9) X10*3/uL Isabella # (Auto) 0.5 (0.1-1.2) X10*3/uL Eos # (Auto) 0.0 (0.0-0.4) X10*3/uL Baso # (Auto) 0.0 (0.0-0.2) X10*3/uL Abs Immat Gran (auto) 0.05 H (0.00-0.03) X10*3/uL Absolute Neuts (auto) 7.7 (2.0-8.3) x10*3/uL Absolute Nucleated RBC 0.040 H (0.0-0.012) X10*3/uL Nucleated RBC % (auto) 0.5 H (0.0-0.2) /100WBC Smear Tech's Comments VERIFIED PT (10.0-13.1) SEC INR (0.9-1.1) APTT (24.1-38.0) SEC Sodium 128 L (135-145) mmol/L Potassium 4.3 (3.3-5.1) mmol/L Chloride 98 (96-108) mmol/L Carbon Dioxide 22 (22-29) mmol/L Anion Gap 12 (12-20) BUN 19 H (9-16) mg/dL Creatinine 1.20 (0.5-1.4) mg/dL Estim Creat Clear Calc 47.9 Estimated GFR 58 Random Glucose 200 H D (60-115) mg/dL Lactic Acid 1.5 (0.5-2.0) mmol/L Calcium 8.3 L D (8.4-10.2) mg/dL Magnesium 1.7 (1.6-2.6) mg/dL Total Bilirubin 1.6 H (0.0-1.0) mg/dL AST 17 (5-37) U/L ALT 14 (0-40) U/L Alkaline Phosphatase 44 (39-117) U/L Troponin I High Sens (<3.5-35.0) ng/L Total Protein 6.0 L (6.5-8.0) g/dL Albumin 3.9 (3.5-5.0) g/dL Lipase 5 L (8-78) U/L Respiratory Panel Martin Adenovirus (Rapid PCR) (Not Detect.) B.pert (TEM-PCR) (Not Detect.) B.parapertussis DNA PCR (Not Detect.) C. pneumoniae DNA (PCR) (Not Detect.) Coronavirus OC43 (PCR) (Not Detect.) Coronavirus HKU1 (PCR) (Not Detect.) Coronavirus 229E (PCR) (Not Detect.) COVID-19 (CARMELO) (Negative) COVID-19 Clin Com Coronavirus NL63 (PCR) (Not Detect.) Human Metapneumovir PCR (Not Detect.) Influenza Type A (JANY) (Negative) Influenza A (RT-PCR) (Not Detect.) Influenza Type B (JANY) (Negative) Influenza B (RT-PCR) (Not Detect.) Influenza A & B Note M. pneumoniae (PCR) (Not Detect.) Parainfluenza 1 (PCR) (Not Detect.) Parainfluenza 2 (PCR) (Not Detect.) Parainfluenza 3 (PCR) (Not Detect.) Parainfluenza 4 (PCR) (Not Detect.) RSV (PCR) (Not Detect.) Entero/Rhino (PCR) (Not Detect.) SARS-CoV-2 RNA (RT-PCR) (Not Detect.) 04/01/22 04/01/22 04/01/22 Range/Units 13:56 13:56 13:56 WBC (4.8-10.8) X10*3/uL RBC (4.60-5.80) X10*6/uL Hgb (14.0-18.0) g/dl Hct (42.0-52.0) % MCV (80.0-98.0) fL MCH (27.0-33.0) pg MCHC (31.0-36.0) g/dl RDW (11.0-16.0) % Plt Count (160-400) X10*3/uL MPV (9.4-12.4) fL Immature Gran % (Auto) (0.0-0.4) % Neut % (Auto) (45-73) % Lymph % (Auto) (20-40) % Isabella % (Auto) (2-11) % Eos % (Auto) (0-4) % Baso % (Auto) (0-2) % Lymph # (Auto) (1.2-4.9) X10*3/uL Isabella # (Auto) (0.1-1.2) X10*3/uL Eos # (Auto) (0.0-0.4) X10*3/uL Baso # (Auto) (0.0-0.2) X10*3/uL Abs Immat Gran (auto) (0.00-0.03) X10*3/uL Absolute Neuts (auto) (2.0-8.3) x10*3/uL Absolute Nucleated RBC (0.0-0.012) X10*3/uL Nucleated RBC % (auto) (0.0-0.2) /100WBC Smear Tech's Comments PT (10.0-13.1) SEC INR (0.9-1.1) APTT (24.1-38.0) SEC Sodium (135-145) mmol/L Potassium (3.3-5.1) mmol/L Chloride (96-108) mmol/L Carbon Dioxide (22-29) mmol/L Anion Gap (12-20) BUN (9-16) mg/dL Creatinine (0.5-1.4) mg/dL Estim Creat Clear Calc Estimated GFR Random Glucose (60-115) mg/dL Lactic Acid (0.5-2.0) mmol/L Calcium (8.4-10.2) mg/dL Magnesium (1.6-2.6) mg/dL Total Bilirubin (0.0-1.0) mg/dL AST (5-37) U/L ALT (0-40) U/L Alkaline Phosphatase (39-117) U/L Troponin I High Sens 12.5 (<3.5-35.0) ng/L Total Protein (6.5-8.0) g/dL Albumin (3.5-5.0) g/dL Lipase (8-78) U/L Respiratory Panel Martin Adenovirus (Rapid PCR) (Not Detect.) B.pert (TEM-PCR) (Not Detect.) B.parapertussis DNA PCR (Not Detect.) C. pneumoniae DNA (PCR) (Not Detect.) Coronavirus OC43 (PCR) (Not Detect.) Coronavirus HKU1 (PCR) (Not Detect.) Coronavirus 229E (PCR) (Not Detect.) COVID-19 (CARMELO) Negative (Negative) COVID-19 Clin Com See Note Coronavirus NL63 (PCR) (Not Detect.) Human Metapneumovir PCR (Not Detect.) Influenza Type A (JANY) Negative (Negative) Influenza A (RT-PCR) (Not Detect.) Influenza Type B (JANY) Negative (Negative) Influenza B (RT-PCR) (Not Detect.) Influenza A & B Note See Note M. pneumoniae (PCR) (Not Detect.) Parainfluenza 1 (PCR) (Not Detect.) Parainfluenza 2 (PCR) (Not Detect.) Parainfluenza 3 (PCR) (Not Detect.) Parainfluenza 4 (PCR) (Not Detect.) RSV (PCR) (Not Detect.) Entero/Rhino (PCR) (Not Detect.) SARS-CoV-2 RNA (RT-PCR) (Not Detect.) 04/01/22 04/01/22 Range/Units 13:56 14:45 WBC (4.8-10.8) X10*3/uL RBC (4.60-5.80) X10*6/uL Hgb (14.0-18.0) g/dl Hct (42.0-52.0) % MCV (80.0-98.0) fL MCH (27.0-33.0) pg MCHC (31.0-36.0) g/dl RDW (11.0-16.0) % Plt Count (160-400) X10*3/uL MPV (9.4-12.4) fL Immature Gran % (Auto) (0.0-0.4) % Neut % (Auto) (45-73) % Lymph % (Auto) (20-40) % Isabella % (Auto) (2-11) % Eos % (Auto) (0-4) % Baso % (Auto) (0-2) % Lymph # (Auto) (1.2-4.9) X10*3/uL Isabella # (Auto) (0.1-1.2) X10*3/uL Eos # (Auto) (0.0-0.4) X10*3/uL Baso # (Auto) (0.0-0.2) X10*3/uL Abs Immat Gran (auto) (0.00-0.03) X10*3/uL Absolute Neuts (auto) (2.0-8.3) x10*3/uL Absolute Nucleated RBC (0.0-0.012) X10*3/uL Nucleated RBC % (auto) (0.0-0.2) /100WBC Smear Tech's Comments PT 21.5 H (10.0-13.1) SEC INR 1.8 H (0.9-1.1) APTT 33.1 (24.1-38.0) SEC Sodium (135-145) mmol/L Potassium (3.3-5.1) mmol/L Chloride (96-108) mmol/L Carbon Dioxide (22-29) mmol/L Anion Gap (12-20) BUN (9-16) mg/dL Creatinine (0.5-1.4) mg/dL Estim Creat Clear Calc Estimated GFR Random Glucose (60-115) mg/dL Lactic Acid (0.5-2.0) mmol/L Calcium (8.4-10.2) mg/dL Magnesium (1.6-2.6) mg/dL Total Bilirubin (0.0-1.0) mg/dL AST (5-37) U/L ALT (0-40) U/L Alkaline Phosphatase (39-117) U/L Troponin I High Sens (<3.5-35.0) ng/L Total Protein (6.5-8.0) g/dL Albumin (3.5-5.0) g/dL Lipase (8-78) U/L Respiratory Panel Martin See Note Adenovirus (Rapid PCR) Not Detected (Not Detect.) B.pert (TEM-PCR) Not Detected (Not Detect.) B.parapertussis DNA PCR Not Detected (Not Detect.) C. pneumoniae DNA (PCR) Not Detected (Not Detect.) Coronavirus OC43 (PCR) Not Detected (Not Detect.) Coronavirus HKU1 (PCR) Not Detected (Not Detect.) Coronavirus 229E (PCR) Not Detected (Not Detect.) COVID-19 (CARMELO) (Negative) COVID-19 Clin Com Coronavirus NL63 (PCR) Not Detected (Not Detect.) Human Metapneumovir PCR Not Detected (Not Detect.) Influenza Type A (JANY) (Negative) Influenza A (RT-PCR) Not Detected (Not Detect.) Influenza Type B (JANY) (Negative) Influenza B (RT-PCR) Not Detected (Not Detect.) Influenza A & B Note M. pneumoniae (PCR) Not Detected (Not Detect.) Parainfluenza 1 (PCR) Not Detected (Not Detect.) Parainfluenza 2 (PCR) Not Detected (Not Detect.) Parainfluenza 3 (PCR) Not Detected (Not Detect.) Parainfluenza 4 (PCR) Not Detected (Not Detect.) RSV (PCR) Not Detected (Not Detect.) Entero/Rhino (PCR) Not Detected (Not Detect.) SARS-CoV-2 RNA (RT-PCR) Not Detected (Not Detect.) Imaging Data CT Chest, abdomen/pelvis: Attestation: I personally reviewed and interpreted this imaging study as follows: My impression: Left sided pneumonia. Radiologist's impression: EXAMINATION: CT CHEST, ABDOMEN AND PELVIS WITHOUT CONTRAST CLINICAL INFORMATION: Fall with nausea and vomiting COMPARISON: Chest CT 03/06/2016 TECHNIQUE: Multidetector volumetric imaging was performed from the thoracic inlet through the pubic symphysis. Sagittal and coronal reformatted images were obtained on the technologist's workstation. Axial MIP volume rendering provided. This CT examination was performed using dose optimization techniques as appropriate, variously including the following: *Automated exposure control *Adjustment of mA and/or kV according to patient size (this includes techniques or standardized protocols for targeted exams where dose is matched to indication/reason for exam; i.e. extremities or head) *Use of iterative reconstruction technique DLP: 432 mGy-cm FINDINGS: CHEST: Lungs: No suspicious pulmonary nodule or mass. Punctate calcified granuloma in the superior segment right lower lobe. Mixed groundglass and small patchy areas of consolidation in the peripheral left upper lobe with small centrilobular nodules. Mild dependent bibasilar atelectasis. No pneumothorax. Central airways are clear. Mediastinum: Prominent heart size. No pericardial effusion. Extensive three-vessel coronary calcifications. Mild aortic valvular calcifications. No thoracic aortic aneurysm. Normal caliber central pulmonary trunk. No mediastinal hematoma. No mediastinal or hilar lymphadenopathy by size criteria. AP window lymph node measures 0.8 cm in short axis, likely reactive and more prominent than on prior. Pericardium/Pleura: Trace left pleural effusion. No right pleural effusion. Chest Wall/Axilla: Unremarkable. ABDOMEN/PELVIS: Liver, Gallbladder, Biliary Tree: Mild hepatic hypoattenuation compatible with mild steatosis. Slightly prominent caudate lobe. No liver lesion. No biliary ductal dilation. The gallbladder is unremarkable with no evidence of radiopaque gallstones, gallbladder wall thickening, or pericholecystic inflammatory changes. Pancreas: Unremarkable. Spleen: Unremarkable. Adrenal Glands: Unremarkable. Kidneys and Ureters: The kidneys are normal in size, shape, and attenuation. No hydronephrosis or hydroureter or calculi seen. Prominent symmetric bilateral perirenal fascial stranding/edema. No discrete perinephric fluid collection. Bladder: Unremarkable. Gastrointestinal Tract: Small hiatal hernia. Colonic diverticulosis. No evidence of acute diverticulitis. No dilated bowel loops. No bowel wall thickening. No ascites or free air. Couple small appendicoliths noted in the otherwise normal-appearing appendix. Abdominal Wall: No hernia is demonstrated. Lymphovascular Structures: Lymph nodes: No lymphadenopathy. Vascular: Extensive atherosclerotic vascular calcifications. Normal caliber abdominal aorta. Pelvic Viscera: Prostate gland appears mildly enlarged minimally indenting into the base of the bladder. OSSEOUS STRUCTURES: No acute fracture or suspicious osseous lesions identified. 2.4 cm lucent lesion with fatty attenuation in the left iliac bone, presumably a intraosseous lipoma, with nonaggressive appearance. CT/CT chest wo con IMPRESSION: ? 1. No acute injury identified in the chest, abdomen, or pelvis. 2. No acute fracture. 3. Patchy airspace opacities in the left upper lobe, possibly pneumonia. Correlate clinically. 4. Trace left pleural effusion. 5. No acute process identified in the abdomen. 6. Extensive colonic diverticulosis. No evidence of acute diverticulitis. 7. No evidence of bowel obstruction. 8. Multiple additional findings, as detailed above. Dictated By: Erik Aranad Signed By: Electronically signed by Erik?Manoj 04/01/[address] head and C-Spine: Attestation: I personally reviewed and interpreted this imaging study as follows: My impression: No acute process. Radiologist's impression: EXAMINATION: NONCONTRAST HEAD CT NONCONTRAST CERVICAL SPINE CT INDICATION INFORMATION: Fall with nausea and vomiting COMPARISON: Head CT 12/14/[address] 03/06/2016 TECHNIQUE: Separate noncontrast CT examinations of the head and cervical spine were performed. Coronal and sagittal images were created for each examination at the technologist workstation. This CT examination was performed using dose optimization techniques as appropriate, variously including the following: *Automated exposure control *Adjustment of mA and/or kV according to patient size (this includes techniques or standardized protocols for targeted exams where dose is matched to indication/reason for exam; i.e. extremities or head) *Use of iterative reconstruction technique DLP: 1215 mGy-cm FINDINGS: HEAD: No intra or extra-axial fluid collection, hemorrhage, or mass. No ventriculomegaly. No midline shift or herniation. Basal cisterns are patent. Pineda-white matter differentiation is maintained. No territorial encephalomalacia. ?Proportional prominence of the ventricles and sulcal spaces is consistent with mild volume loss. Patchy periventricular and deep white matter hypoattenuation is consistent with mild small vessel ischemic changes. No calvarial fracture or soft tissue abnormality.? The mastoid air cells and visualized portions of the paranasal sinuses are well aerated. CERVICAL SPINE: Alignment: Minimal retrolisthesis at C3-C4 and C5-C6. Mild grade 1 anterolisthesis at C4-C5 and C7-T1, all unchanged since prior 2015. Vertebra: No acute fracture. No prevertebral soft tissue swelling. Degenerative disc disease: Status post posterior fusion at C1-C2 with rods and lateral mass screws. Fixation is intact. Ankylosis of C1-C2 on the left side including ankylosis of the left facets at C2-C3. Partial ankylosis of the C2-C3 vertebral bodies. Ankylosis of the C3-C4 vertebral bodies. Advanced degenerative disc disease at C3-C4, C5-C6 and C6-C7 with severe disc height loss, endplate sclerosis, and endplate proliferative change. Moderate disc degenerative changes at C4-C5 and C7-T1. Multilevel bilateral facet arthrosis and uncovertebral spurring. Additional degenerative change at the articulation of the left occipital condyle and lateral mass of C1 on the left. Other findings: No cervical lymphadenopathy. Visualized major salivary glands and thyroid gland are unremarkable. Visualized lung apices are clear. CT/CT head/brain wo con IMPRESSION: ? 1. No intracranial hemorrhage or calvarial fracture. 2. No traumatic subluxation or acute cervical spine fracture. Dictated By: Erik Aranda Signed By: Electronically signed by Erik?Manoj 04/01/22 1521 Critical Care Time Critical Care Time Critical Care Time: Yes Total Critical Care Time: 30 Attestation: I spent 30 minutes of Critical Care Time with this patient. This does not include time spent on separately reported billable procedures. Discharge Plan Discharge Clinical Impression: Pneumonia Patient Disposition: Admitted As Inpatient
[2022-04-01 13:36] VITALS: BP 110/62; BP 132/53; PULSE 79; PULSE 80; RESP 19; TEMP 40.1; O2SAT 95; O2SAT 96; BMI 24.3
[2022-04-01] MEDS: 0.9 % Sodium Chloride 1,000 ML 999 ML IV (13:53)
[2022-04-01] MEDS: Acetaminophen Supp 650 MG SUPP.RECT 975 MG PR (13:54)
[2022-04-01] MEDS: ondansetron HCL 4 MG/2 ML VIAL IVPUSH (13:56)
--- NOTE | 2022-04-01 14:02 | PHA.MEDREC ---
Pharmacy Consult ? Medication Reconciliation Pharmacy has completed the medication reconciliation. Pt's at bedside with list; told me PCP recently discontinued simvastatin 20mg. Unsure if he took medications today but was certain he took his medications last night.
[2022-04-01 14:07] LABS: Basophils Percent Auto 0.2 % (0-2); Hematocrit 26.9 % (42.0-52.0); Hemoglobin 9.2 g/dl (14.0-18.0); Imm Gran Abs Auto 0.05 X10*3/uL (0.00-0.03); Imm Gran Pct Auto 0.6 % (0.0-0.4); Lymphocytes Absolute Auto 0.3 X10*3/uL (1.2-4.9); Lymphocytes Percent Auto 2.9 % (20-40); MANUAL DIFF FLAG SCAN; Mean Corpuscular HGB Conc 34.2 g/dl (31.0-36.0); Mean Corpuscular Hemoglobin 34.7 pg (27.0-33.0); Mean Corpuscular Volume 101.5 fL (80.0-98.0); Mean Platelet Volume 10.8 fL (9.4-12.4); Monocytes Absolute Auto 0.5 X10*3/uL (0.1-1.2); NRBC Pct Auto 0.5 /100WBC (0.0-0.2); Neutrophils Absolute Auto 7.7 x10*3/uL (2.0-8.3); Neutrophils Percent Auto 90.3 % (45-73); Platelet Count 157 X10*3/uL (160-400); Red Blood Count 2.65 X10*6/uL (4.60-5.80); Red Cell Distribution Width 15.9 % (11.0-16.0); SCAN SMEAR FLAG 1; White Blood Count 8.5 X10*3/uL (4.8-10.8)
[2022-04-01 14:14] LABS: INTERNATIONAL NORM RATIO 1.8 (0.9-1.1); Prothrombin Time 21.5 SEC (10.0-13.1)
[2022-04-01 14:16] LABS: Partial Thromboplastin Time 33.1 SEC (24.1-38.0)
[2022-04-01 14:20] LABS: Lactic Acid 1.5 mmol/L (0.5-2.0)
[2022-04-01 14:21] LABS: COVID-19 Test Negative (Negative); IDNOW Serial# 9DB6401D
[2022-04-01 14:22] LABS: IDNOW Serial# 55D5AD1C
[2022-04-01 14:23] LABS: Influenza A Negative (Negative); Influenza B2 Negative (Negative)
[2022-04-01 14:24] LABS: Alanine Aminotransferase 14 U/L (0-40); Albumin Level 3.9 g/dL (3.5-5.0); Alkaline Phosphatase 44 U/L (39-117); Anion Gap 12 (12-20); Aspartate Amino Transferase 17 U/L (5-37); Bilirubin Total 1.6 mg/dL (0.0-1.0); Blood Urea Nitrogen 19 mg/dL (9-16); Calcium 8.3 mg/dL (8.4-10.2); Carbon Dioxide 22 mmol/L (22-29); Chloride 98 mmol/L (96-108); Creatinine Clr Calc Pharmacy 47.9; Estimated Glomerular Filt Rate 58; Glucose Random 200 mg/dL (60-115); Lipase 5 U/L (8-78); Magnesium 1.7 mg/dL (1.6-2.6); Potassium 4.3 mmol/L (3.3-5.1); Sodium 128 mmol/L (135-145)
[2022-04-01 14:27] LABS: SLIDE REVIEW VERIFIED
[2022-04-01 14:30] LABS: Troponin-I High Sensitivity 12.5 ng/L (<3.5-35.0)
[2022-04-01] MEDS: cefTRIAXone sodium 1 GM in 0.9 % Sodium Chloride 50 ML IV (14:37)
[2022-04-01 15:30] VITALS: TEMP 39.1
[2022-04-01 15:31] VITALS: BP 110/53; PULSE 75; RESP 11; TEMP 39.1; O2SAT 98
[2022-04-01 16:08] LABS: Adenovirus PCR Not Detected (Not Detect.); Bordetella parapertussis PCR Not Detected (Not Detect.); Bordetella pertussis PCR Not Detected (Not Detect.)
[2022-04-01 16:09] LABS: Chlamydia pneumoniae PCR Not Detected (Not Detect.); Coronavirus 229E PCR Not Detected (Not Detect.); Coronavirus HKU1 PCR Not Detected (Not Detect.); Coronavirus NL63 PCR Not Detected (Not Detect.); Coronavirus OC43 PCR Not Detected (Not Detect.); Human metapneumovirus PCR Not Detected (Not Detect.); Influenza A PCR Not Detected (Not Detect.); Influenza B PCR Not Detected (Not Detect.); Mycoplasma pneumoniae PCR Not Detected (Not Detect.); Parainfluenza 1 PCR Not Detected (Not Detect.); Parainfluenza 2 PCR Not Detected (Not Detect.); Parainfluenza 3 PCR Not Detected (Not Detect.); Parainfluenza 4 PCR Not Detected (Not Detect.); RSV PCR Not Detected (Not Detect.); Rhino/Enterovirus PCR Not Detected (Not Detect.); SARS-CoV-2 PCR Not Detected (Not Detect.)
[2022-04-01] MEDS: 0.9 % Sodium Chloride 1,000 ML 1373 ML IV (16:19)
--- NOTE | 2022-04-01 16:19 | PC.NURSE ---
1373 mL NS hung per order, unable to scan barcode.
[2022-04-01 16:20] VITALS: BP 120/58; PULSE 74; RESP 19; O2SAT 98
--- NOTE | 2022-04-01 16:35 | PM.IMHP ---
History of Present Illness Date of Service: 04/01/22 Chief Complaint: Pneumonia 86 year old male presenting to the emergency department today with nausea, vomiting, and a recent fall. Patient states that 2 days ago, he received his latest ProCrit shot and has felt terrible ever since with nausea, vomiting, and body aches. Patient states that his grandson was recently over who tested positive for COVID-19. Patient states that he did have a fall yesterday in the bathroom but did not strike his head or have any loss of consciousness. ER work up consistent with left upper lobe pneumonia for which patient will be admitted Review of Systems Review of Systems: Denies chest pain Admits to shortness of breath Admits to nausea and vomiting denies diarrhea Admits to subjective fevers PMFSH Medical History (Updated 04/01/22 @ 16:47 by Cameron Paniagua DO) Atherosclerotic cardiovascular disease Benign prostatic hyperplasia Cervical spondylosis with radiculopathy Chronic fatigue and malaise Depression Hearing loss Left hydrocele Macrocytic anemia Mild valvular heart disease Myoclonic jerking Persistent atrial fibrillation Right rotator cuff tear Shoulder pain, left Family History Father CVD (cardiovascular disease) Mother No problems noted. Surgical History History of bone marrow biopsy History of fusion of cervical spine History of heart artery stent Social History Household Members: Spouse Housing: House Are you a primary transitional care manager to a significant other at home: No Do you presently have visiting nurse or other home services: No Alcohol intake: current Alcohol intake frequency: a few times a month Alcohol type: beer Patient Tobacco Use Status: Former Tobacco user Tobacco use type: Cigarette Cigarette Packs Per Day: 0.5 Years Smoked: 1 e-Cigarette/Vaping Use: Never Used Second Hand Smoke Exposure: No Advance Directives: No Advance Directives Information Provided: No service: No Current occupational status: retired Cognitive needs: No Hearing needs: Yes Vision needs: Yes Meds Allergies Allergy/AdvReac Type Severity Reaction Status Date / Time No Known Allergies Allergy Verified 03/29/22 13:36 [No Known Allergies*] Active Medications: Current Medications Acetaminophen (Acetaminophen 325 Mg Tablet) 650 mg PO Q6H PRN PRN Reason: Pain, Mild (Pain Scale 1-3) Acetaminophen (Acetaminophen 325 Mg Tablet) 650 mg PO Q4H PRN PRN Reason: Pain, Mild (Pain Scale 1-3) Atenolol (Atenolol 50 Mg Tablet) 50 mg PO DAILY LES; Protocol Doxazosin Mesylate (Doxazosin Mesylate 2 Mg Tablet) 2 mg PO BEDTIME [facility] Sodium Chloride (Ns) 1,000 mls @ 1,373 mls/hr IV .Q44M ONE Stop: 04/01/22 16:37 Last Admin: 04/01/22 16:19 Dose: 1,373 mls/hr Ceftriaxone Sodium 1 gm/ (Sodium Chloride) 50 mls @ 100 mls/hr IV Q24H LES Azithromycin 500 mg/ Sodium (Chloride) 250 mls @ 125 mls/hr IV Q24H LES Ondansetron HCl (Ondansetron Hcl 4 Mg/2 Ml Vial) 4 mg IVPUSH Q8H PRN PRN Reason: Nausea and Vomiting Pharmacy Consult (Consult Rx Perform Med Rec) 1 each MISCELLANE ONCE PRN PRN Reason: Consult order Rivaroxaban (Rivaroxaban 20 Mg Tablet) 20 mg PO BEDTIME [facility] Sodium Chloride (0.9 % Sodium Chloride Flush 3 Ml Syringe) 3 ml IVFLUSH QSHIFT LES Tramadol HCl (Tramadol Hcl 50 Mg Tablet) 50 mg PO BID PRN PRN Reason: shoulder pain Home Medications Medication Instructions Recorded Confirmed Last Taken Type acetaminophen 650 mg 650 mg PO Q12H 02/22/21 04/01/22 Unknown History tablet,extended release (Arthritis Pain Reliever) rivaroxaban 20 mg tablet (Xarelto) 20 mg PO BEDTIME 01/12/22 04/01/22 03/31/22 History Physical Exam Vital Signs and Narrative: Vital Signs: Last Vital Signs Temp 102.4 F H 04/01/22 15:31 Pulse 74 04/01/22 16:20 Resp 19 04/01/22 16:20 BP 120/58 L 04/01/22 16:20 Pulse Ox 98 04/01/22 16:20 O2 Del Method 04/01/22 16:20 BMI result Body Mass Index 24.3 Const: Other: Ill-appearing Resp: Other: Scattered expiratory wheezes with fine crackles heard at the left side Cardio: Other: No S4; positive S1-S2; no S3 murmurs rubs or gallops. Irregularly irregular GI: Other: Soft nontender nondistended normoactive bowel sounds Extrem: Other: No edema bilaterally Results Labs CBC and Chem 7: 04/01/22 13:56 04/01/22 13:56 Labs: Laboratory Results - last 24 hr 04/01/22 04/01/22 04/01/22 13:56 13:56 13:56 MCV 101.5 H MCH 34.7 H MCHC 34.2 RDW 15.9 Plt Count 157 L MPV 10.8 Immature Gran % (Auto) 0.6 H Neut % (Auto) 90.3 H Lymph % (Auto) 2.9 L Cowley % (Auto) 6.0 Eos % (Auto) 0.0 Baso % (Auto) 0.2 Lymph # (Auto) 0.3 L Cowley # (Auto) 0.5 Eos # (Auto) 0.0 Baso # (Auto) 0.0 Abs Immat Gran (auto) 0.05 H Absolute Neuts (auto) 7.7 Absolute Nucleated RBC 0.040 H Nucleated RBC % (auto) 0.5 H Smear Tech's Comments VERIFIED PT INR APTT Anion Gap 12 Estim Creat Clear Calc 47.9 Estimated GFR 58 Random Glucose 200 H D Lactic Acid 1.5 Calcium 8.3 L D Magnesium 1.7 Total Bilirubin 1.6 H AST 17 ALT 14 Alkaline Phosphatase 44 Troponin I High Sens Total Protein 6.0 L Albumin 3.9 Lipase 5 L Respiratory Panel Martin Adenovirus (Rapid PCR) B.pert (TEM-PCR) B.parapertussis DNA PCR C. pneumoniae DNA (PCR) Coronavirus OC43 (PCR) Coronavirus HKU1 (PCR) Coronavirus 229E (PCR) COVID-19 (CARMELO) COVID-19 Clin Com Coronavirus NL63 (PCR) Human Metapneumovir PCR Influenza Type A (JANY) Influenza A (RT-PCR) Influenza Type B (JANY) Influenza B (RT-PCR) Influenza A & B Note M. pneumoniae (PCR) Parainfluenza 1 (PCR) Parainfluenza 2 (PCR) Parainfluenza 3 (PCR) Parainfluenza 4 (PCR) RSV (PCR) Entero/Rhino (PCR) SARS-CoV-2 RNA (RT-PCR) 04/01/22 04/01/22 04/01/22 13:56 13:56 13:56 MCV MCH MCHC RDW Plt Count MPV Immature Gran % (Auto) Neut % (Auto) Lymph % (Auto) Cowley % (Auto) Eos % (Auto) Baso % (Auto) Lymph # (Auto) Cowley # (Auto) Eos # (Auto) Baso # (Auto) Abs Immat Gran (auto) Absolute Neuts (auto) Absolute Nucleated RBC Nucleated RBC % (auto) Smear Tech's Comments PT INR APTT Anion Gap Estim Creat Clear Calc Estimated GFR Random Glucose Lactic Acid Calcium Magnesium Total Bilirubin AST ALT Alkaline Phosphatase Troponin I High Sens 12.5 Total Protein Albumin Lipase Respiratory Panel Martin Adenovirus (Rapid PCR) B.pert (TEM-PCR) B.parapertussis DNA PCR C. pneumoniae DNA (PCR) Coronavirus OC43 (PCR) Coronavirus HKU1 (PCR) Coronavirus 229E (PCR) COVID-19 (CARMELO) Negative COVID-19 Clin Com See Note Coronavirus NL63 (PCR) Human Metapneumovir PCR Influenza Type A (JANY) Negative Influenza A (RT-PCR) Influenza Type B (JANY) Negative Influenza B (RT-PCR) Influenza A & B Note See Note M. pneumoniae (PCR) Parainfluenza 1 (PCR) Parainfluenza 2 (PCR) Parainfluenza 3 (PCR) Parainfluenza 4 (PCR) RSV (PCR) Entero/Rhino (PCR) SARS-CoV-2 RNA (RT-PCR) 04/01/22 04/01/22 13:56 14:45 MCV MCH MCHC RDW Plt Count MPV Immature Gran % (Auto) Neut % (Auto) Lymph % (Auto) Cowley % (Auto) Eos % (Auto) Baso % (Auto) Lymph # (Auto) Cowley # (Auto) Eos # (Auto) Baso # (Auto) Abs Immat Gran (auto) Absolute Neuts (auto) Absolute Nucleated RBC Nucleated RBC % (auto) Smear Tech's Comments PT 21.5 H INR 1.8 H APTT 33.1 Anion Gap Estim Creat Clear Calc Estimated GFR Random Glucose Lactic Acid Calcium Magnesium Total Bilirubin AST ALT Alkaline Phosphatase Troponin I High Sens Total Protein Albumin Lipase Respiratory Panel Martin See Note Adenovirus (Rapid PCR) Not Detected B.pert (TEM-PCR) Not Detected B.parapertussis DNA PCR Not Detected C. pneumoniae DNA (PCR) Not Detected Coronavirus OC43 (PCR) Not Detected Coronavirus HKU1 (PCR) Not Detected Coronavirus 229E (PCR) Not Detected COVID-19 (CARMELO) COVID-19 Clin Com Coronavirus NL63 (PCR) Not Detected Human Metapneumovir PCR Not Detected Influenza Type A (JANY) Influenza A (RT-PCR) Not Detected Influenza Type B (JANY) Influenza B (RT-PCR) Not Detected Influenza A & B Note M. pneumoniae (PCR) Not Detected Parainfluenza 1 (PCR) Not Detected Parainfluenza 2 (PCR) Not Detected Parainfluenza 3 (PCR) Not Detected Parainfluenza 4 (PCR) Not Detected RSV (PCR) Not Detected Entero/Rhino (PCR) Not Detected SARS-CoV-2 RNA (RT-PCR) Not Detected Imaging Radiologist's Impressions: Impressions Abdomen/Pelvis CT 04/01/22 14:25 IMPRESSION: 1. No acute injury identified in the chest, abdomen, or pelvis. 2. No acute fracture. 3. Patchy airspace opacities in the left upper lobe, possibly pneumonia. Correlate clinically. 4. Trace left pleural effusion. 5. No acute process identified in the abdomen. 6. Extensive colonic diverticulosis. No evidence of acute diverticulitis. 7. No evidence of bowel obstruction. 8. Multiple additional findings, as detailed above. Cervical Spine CT 04/01/22 14:25 IMPRESSION: 1. No intracranial hemorrhage or calvarial fracture. 2. No traumatic subluxation or acute cervical spine fracture. Chest CT 04/01/22 14:25 IMPRESSION: 1. No acute injury identified in the chest, abdomen, or pelvis. 2. No acute fracture. 3. Patchy airspace opacities in the left upper lobe, possibly pneumonia. Correlate clinically. 4. Trace left pleural effusion. 5. No acute process identified in the abdomen. 6. Extensive colonic diverticulosis. No evidence of acute diverticulitis. 7. No evidence of bowel obstruction. 8. Multiple additional findings, as detailed above. Head CT 04/01/22 14:25 IMPRESSION: 1. No intracranial hemorrhage or calvarial fracture. 2. No traumatic subluxation or acute cervical spine fracture. Assessment and Plan (1) Left upper lobe pneumonia: Status: Acute (2) Atherosclerotic cardiovascular disease: Status: Acute (3) Persistent atrial fibrillation: Status: Acute Plan 86-year-old male presents with fever and weakness and mild shortness of breath 2 days after a Procrit shot. He states he has been feeling progressively worse and the shortness of breath began over the last 24 hours . ER workup consistent with left upper lobe pneumonia 1. Left upper lobe pneumonia -IV ceftriaxone/azithromycin -titrate O2 to maintain sats greater than or equal to 92% 2. ASCD/chronic atrial fibrillation -rate control adequate -continue beta-blockade adjust as indicated -continue Eliquis Full code Eliquis Patient will require 2 midnights going forward for treatment of left upper lobe pneumonia with IV antibiotics Quality Stroke Does the patient have a stroke diagnosis?: No VTE Prior VTE?: No VTE Risk Level:: Medical - moderate - high VTE Device Contraindication: Treatment Not Indicated VTE Drug Contraindication: N/A - Med Ordered
[2022-04-01 18:45] VITALS: BP 125/58; PULSE 78; RESP 18
[2022-04-01 19:27] VITALS: BP 124/46; PULSE 86; RESP 18; TEMP 39.1; O2SAT 95
[2022-04-01] MEDS: Azithromycin 500 MG in 0.9 % Sodium Chloride 250 ML 125 MG IV (19:29)
[2022-04-01] MEDS: Acetaminophen 325 MG TABLET 650 MG PO (19:34)
[2022-04-01] MEDS: Rivaroxaban 20 MG TABLET PO (21:12)
[2022-04-01] MEDS: Doxazosin Mesylate 2 MG TABLET PO (21:12)
[2022-04-02] VITALS (8 sets, daily range): BP systolic 95–148; BP diastolic 50–72; PULSE 66–85; RESP 16–20; TEMP 36.9–39.4; O2SAT 94–97; BMI 25.4
[2022-04-02 07:10] LABS: Basophils Percent Auto 0.1 % (0-2); Hematocrit 24.1 % (42.0-52.0); Imm Gran Abs Auto 0.04 X10*3/uL (0.00-0.03); Imm Gran Pct Auto 0.6 % (0.0-0.4); Lymphocytes Absolute Auto 0.3 X10*3/uL (1.2-4.9); Lymphocytes Percent Auto 3.9 % (20-40); MANUAL DIFF FLAG SCAN; Mean Corpuscular HGB Conc 33.2 g/dl (31.0-36.0); Mean Corpuscular Hemoglobin 33.6 pg (27.0-33.0); Mean Corpuscular Volume 101.3 fL (80.0-98.0); Mean Platelet Volume 11.2 fL (9.4-12.4); Monocytes Absolute Auto 0.3 X10*3/uL (0.1-1.2); Monocytes Percent Auto 4.3 % (2-11); NRBC Pct Auto 0.3 /100WBC (0.0-0.2); Neutrophils Absolute Auto 6.5 x10*3/uL (2.0-8.3); Neutrophils Percent Auto 91.1 % (45-73); Platelet Count 149 X10*3/uL (160-400); Red Blood Count 2.38 X10*6/uL (4.60-5.80); Red Cell Distribution Width 16.1 % (11.0-16.0); SCAN SMEAR FLAG 1; White Blood Count 7.2 X10*3/uL (4.8-10.8)
[2022-04-02 07:47] LABS: Alanine Aminotransferase 17 U/L (0-40); Albumin Level 3.2 g/dL (3.5-5.0); Alkaline Phosphatase 42 U/L (39-117); Anion Gap 11 (12-20); Aspartate Amino Transferase 22 U/L (5-37); Bilirubin Total 1.4 mg/dL (0.0-1.0); Blood Urea Nitrogen 19 mg/dL (9-16); Calcium 7.5 mg/dL (8.4-10.2); Carbon Dioxide 19 mmol/L (22-29); Chloride 102 mmol/L (96-108); Creatinine Clr Calc Pharmacy 54.2; Estimated Glomerular Filt Rate > 60; Glucose Fasting 133 mg/dL (60-99); Sodium 128 mmol/L (135-145); Total Protein 4.9 g/dL (6.5-8.0)
[2022-04-02 08:04] LABS: SLIDE REVIEW VERIFIED
[2022-04-02] MEDS: atenoloL 50 MG TABLET PO (08:30)
[2022-04-02] MEDS: 0.9 % Sodium Chloride Flush 3 ML SYRINGE IVFLUSH (08:31)
--- NOTE | 2022-04-02 11:10 | HO.PM.IMPN ---
Subjective Subjective Date of Service: 04/02/22 Interval History: No acute issues overnight. Review of Systems Denies chest pain Admits to shortness of breath Admits to nausea and vomiting denies diarrhea Admits to subjective fevers Physical Exam Vital Signs: Vital Signs: Last Vital Signs Temp 100.4 F 04/02/22 08:01 Pulse 84 04/02/22 08:01 Resp 20 04/02/22 08:01 BP 123/59 L 04/02/22 08:01 Pulse Ox 97 04/02/22 08:01 O2 Del Method 04/02/22 08:01 BMI result Body Mass Index 25.4 Const: Other: Ill-appearing Resp: Other: Scattered expiratory wheezes with fine crackles heard at the left side Cardio: Other: No S4; positive S1-S2; no S3 murmurs rubs or gallops. Irregularly irregular GI: Other: Soft nontender nondistended normoactive bowel sounds Extrem: Other: No edema bilaterally Objective Data Active Medications Acetaminophen (Acetaminophen 325 Mg Tablet) 650 mg PO Q6H PRN PRN Reason: Pain, Mild (Pain Scale 1-3) Acetaminophen (Acetaminophen 325 Mg Tablet) 650 mg PO Q4H PRN PRN Reason: Pain, Mild (Pain Scale 1-3) Last Admin: 04/01/22 19:34 Dose: 650 mg Documented By: DARRICK Atenolol (Atenolol 50 Mg Tablet) 50 mg PO DAILY [facility]; Protocol Last Admin: 04/02/22 08:30 Dose: 50 mg Documented By: CARL Doxazosin Mesylate (Doxazosin Mesylate 2 Mg Tablet) 2 mg PO BEDTIME [facility] Last Admin: 04/01/22 21:12 Dose: 2 mg Documented By: BHAVANA Ceftriaxone Sodium 1 gm/ (Sodium Chloride) 50 mls @ 100 mls/hr IV Q24H [facility] Azithromycin 500 mg/ Sodium (Chloride) 250 mls @ 125 mls/hr IV Q24H [facility] Last Infusion: 04/01/22 21:35 Dose: 125 mls/hr Documented By: BHAVANA Ondansetron HCl (Ondansetron Hcl 4 Mg/2 Ml Vial) 4 mg IVPUSH Q8H PRN PRN Reason: Nausea and Vomiting Pharmacy Consult (Consult Rx Perform Med Rec) 1 each MISCELLANE ONCE PRN PRN Reason: Consult order Rivaroxaban (Rivaroxaban 20 Mg Tablet) 20 mg PO BEDTIME [facility] Last Admin: 04/01/22 21:12 Dose: 20 mg Documented By: BHAVANA Sodium Chloride (0.9 % Sodium Chloride Flush 3 Ml Syringe) 3 ml IVFLUSH QSHIFT [facility] Last Admin: 04/02/22 08:31 Dose: 3 ml Documented By: CARL Tramadol HCl (Tramadol Hcl 50 Mg Tablet) 50 mg PO BID PRN PRN Reason: shoulder pain Labs CBC & Chem 7: 04/02/22 06:12 04/02/22 06:12 Labs: Laboratory Results - last 24 hr 04/01/22 04/01/22 04/01/22 13:56 13:56 13:56 MCV 101.5 H MCH 34.7 H MCHC 34.2 RDW 15.9 Plt Count 157 L MPV 10.8 Immature Gran % (Auto) 0.6 H Neut % (Auto) 90.3 H Lymph % (Auto) 2.9 L [place] % (Auto) 6.0 Eos % (Auto) 0.0 Baso % (Auto) 0.2 Lymph # (Auto) 0.3 L [place] # (Auto) 0.5 Eos # (Auto) 0.0 Baso # (Auto) 0.0 Abs Immat Gran (auto) 0.05 H Absolute Neuts (auto) 7.7 Absolute Nucleated RBC 0.040 H Nucleated RBC % (auto) 0.5 H Smear Tech's Comments VERIFIED PT INR APTT Anion Gap 12 Estim Creat Clear Calc 47.9 Estimated GFR 58 Random Glucose 200 H D Fasting Glucose Lactic Acid 1.5 Calcium 8.3 L D Magnesium 1.7 Total Bilirubin 1.6 H AST 17 ALT 14 Alkaline Phosphatase 44 Troponin I High Sens Total Protein 6.0 L Albumin 3.9 Lipase 5 L Respiratory Panel [place] Adenovirus (Rapid PCR) B.pert (TEM-PCR) B.parapertussis DNA PCR C. pneumoniae DNA (PCR) Coronavirus OC43 (PCR) Coronavirus HKU1 (PCR) Coronavirus 229E (PCR) COVID-19 (CARMELO) COVID-19 Clin Com Coronavirus NL63 (PCR) Human Metapneumovir PCR Influenza Type A (JANY) Influenza A (RT-PCR) Influenza Type B (JANY) Influenza B (RT-PCR) Influenza A & B Note M. pneumoniae (PCR) Parainfluenza 1 (PCR) Parainfluenza 2 (PCR) Parainfluenza 3 (PCR) Parainfluenza 4 (PCR) RSV (PCR) Entero/Rhino (PCR) SARS-CoV-2 RNA (RT-PCR) 04/01/22 04/01/22 04/01/22 13:56 13:56 13:56 MCV MCH MCHC RDW Plt Count MPV Immature Gran % (Auto) Neut % (Auto) Lymph % (Auto) [place] % (Auto) Eos % (Auto) Baso % (Auto) Lymph # (Auto) [place] # (Auto) Eos # (Auto) Baso # (Auto) Abs Immat Gran (auto) Absolute Neuts (auto) Absolute Nucleated RBC Nucleated RBC % (auto) Smear Tech's Comments PT INR APTT Anion Gap Estim Creat Clear Calc Estimated GFR Random Glucose Fasting Glucose Lactic Acid Calcium Magnesium Total Bilirubin AST ALT Alkaline Phosphatase Troponin I High Sens 12.5 Total Protein Albumin Lipase Respiratory Panel [place] Adenovirus (Rapid PCR) B.pert (TEM-PCR) B.parapertussis DNA PCR C. pneumoniae DNA (PCR) Coronavirus OC43 (PCR) Coronavirus HKU1 (PCR) Coronavirus 229E (PCR) COVID-19 (CARMELO) Negative COVID-19 Clin Com See Note Coronavirus NL63 (PCR) Human Metapneumovir PCR Influenza Type A (JANY) Negative Influenza A (RT-PCR) Influenza Type B (JANY) Negative Influenza B (RT-PCR) Influenza A & B Note See Note M. pneumoniae (PCR) Parainfluenza 1 (PCR) Parainfluenza 2 (PCR) Parainfluenza 3 (PCR) Parainfluenza 4 (PCR) RSV (PCR) Entero/Rhino (PCR) SARS-CoV-2 RNA (RT-PCR) 04/01/22 04/01/22 04/02/22 13:56 14:45 06:12 MCV 101.3 H MCH 33.6 H MCHC 33.2 RDW 16.1 H Plt Count 149 L MPV 11.2 Immature Gran % (Auto) 0.6 H Neut % (Auto) 91.1 H Lymph % (Auto) 3.9 L [place] % (Auto) 4.3 Eos % (Auto) 0.0 Baso % (Auto) 0.1 Lymph # (Auto) 0.3 L [place] # (Auto) 0.3 Eos # (Auto) 0.0 Baso # (Auto) 0.0 Abs Immat Gran (auto) 0.04 H Absolute Neuts (auto) 6.5 Absolute Nucleated RBC 0.020 H Nucleated RBC % (auto) 0.3 H Smear Tech's Comments VERIFIED PT 21.5 H INR 1.8 H APTT 33.1 Anion Gap Estim Creat Clear Calc Estimated GFR Random Glucose Fasting Glucose Lactic Acid Calcium Magnesium Total Bilirubin AST ALT Alkaline Phosphatase Troponin I High Sens Total Protein Albumin Lipase Respiratory Panel Martin See Note Adenovirus (Rapid PCR) Not Detected B.pert (TEM-PCR) Not Detected B.parapertussis DNA PCR Not Detected C. pneumoniae DNA (PCR) Not Detected Coronavirus OC43 (PCR) Not Detected Coronavirus HKU1 (PCR) Not Detected Coronavirus 229E (PCR) Not Detected COVID-19 (C[facility]ELO) COVID-19 Clin Com Coronavirus NL63 (PCR) Not Detected Human Metapneumovir PCR Not Detected Influenza Type A (JANY) Influenza A (RT-PCR) Not Detected Influenza Type B (JANY) Influenza B (RT-PCR) Not Detected Influenza A & B Note M. pneumoniae (PCR) Not Detected Parainfluenza 1 (PCR) Not Detected Parainfluenza 2 (PCR) Not Detected Parainfluenza 3 (PCR) Not Detected Parainfluenza 4 (PCR) Not Detected RSV (PCR) Not Detected Entero/Rhino (PCR) Not Detected SARS-CoV-2 RNA (RT-PCR) Not Detected 04/02/22 06:12 MCV MCH MCHC RDW Plt Count MPV Immature Gran % (Auto) Neut % (Auto) Lymph % (Auto) [place] % (Auto) Eos % (Auto) Baso % (Auto) Lymph # (Auto) [place] # (Auto) Eos # (Auto) Baso # (Auto) Abs Immat Gran (auto) Absolute Neuts (auto) Absolute Nucleated RBC Nucleated RBC % (auto) Smear Tech's Comments PT INR APTT Anion Gap 11 L Estim Creat Clear Calc 54.2 Estimated GFR > 60 Random Glucose Fasting Glucose 133 H Lactic Acid Calcium 7.5 L D Magnesium Total Bilirubin 1.4 H AST 22 ALT 17 Alkaline Phosphatase 42 Troponin I High Sens Total Protein 4.9 L Albumin 3.2 L Lipase Respiratory Panel [place] Adenovirus (Rapid PCR) B.pert (TEM-PCR) B.parapertussis DNA PCR C. pneumoniae DNA (PCR) Coronavirus OC43 (PCR) Coronavirus HKU1 (PCR) Coronavirus 229E (PCR) COVID-19 (CARMELO) COVID-19 Clin Com Coronavirus NL63 (PCR) Human Metapneumovir PCR Influenza Type A (JANY) Influenza A (RT-PCR) Influenza Type B (JANY) Influenza B (RT-PCR) Influenza A & B Note M. pneumoniae (PCR) Parainfluenza 1 (PCR) Parainfluenza 2 (PCR) Parainfluenza 3 (PCR) Parainfluenza 4 (PCR) RSV (PCR) Entero/Rhino (PCR) SARS-CoV-2 RNA (RT-PCR) Assessment and Plan (1) Left upper lobe pneumonia: Status: Acute (2) Persistent atrial fibrillation: Status: Acute (3) Atherosclerotic cardiovascular disease: Status: Acute Plan 86-year-old male presents with fever and weakness and mild shortness of breath 2 days after a Procrit shot. He states he has been feeling progressively worse and the shortness of breath began over the last 24 hours . ER workup consistent with left upper lobe pneumonia 1. Left upper lobe pneumonia -IV ceftriaxone/azithromycin(2) -titrate O2 to maintain sats greater than or equal to 92% 2. ASCD/chronic atrial fibrillation -rate control adequate -continue beta-blockade adjust as indicated -continue Eliquis Full code [place] Patient requires ongoing hospitalization for treatment of community-acquired pneumonia with IV antibiotics and supplemental oxygen Quality Stroke Does the patient have a stroke diagnosis?: No VTE Prior VTE?: No VTE Risk Level:: Medical - moderate - high VTE Device Contraindication: Treatment Not Indicated VTE Drug Contraindication: N/A - Med Ordered
[2022-04-02] MEDS: Acetaminophen 325 MG TABLET 650 MG PO (11:39)
--- NOTE | 2022-04-02 11:59 | PHA.PROG ---
Admission Date/Time: April 01, 2022 16:11 Indication: Weight in k.8 kg Adjusted body weight in K.3 KG [place] body weight in K.3 KG Obesity Dosing Indication % IBW:110% Serum Creatinine - Last 168 Hours 04/01/22 04/02/22 13:56 06:12 Creatinine 1.20 1.06 Estimated CrCl and GFR - Last 168 Hours 04/01/22 04/02/22 13:56 06:12 Estim Creat Clear Calc 47.9 54.2 Estimated GFR 58 > 60 Vancomycin Loading Dose: 2000 MG Current Vancomycin Dosing Regimen: 1250 MG Q24H Vancomycin Monitoring using AUC goal of 400 - 600 range with trough as surrogate marker: 482 Date and Time for next Vancomycin Level to be drawn:04/04/22@10 Pharmacist Comments on Vancomycin Plan: Vancomycin dosing will take advantage of [employer] as a clinical decision support tool that uses Bayesian modeling to calculate individual patient's pharmacokinetic parameters and forecast the patient's drug concentration time course with the target goal AUC 24 range of 400 - 600 mg/L/hr.
[2022-04-02] MEDS: Piperacillin Sodium/Tazobactam 3.375 GM in 0.9 % Sodium Chloride 50 ML IV ×2 (12:13→19:52)
[2022-04-02] MEDS: 0.9 % Sodium Chloride 1,000 ML 125 ML IVCONT ×2 (12:13→19:55)
--- NOTE | 2022-04-02 15:26 | MHC.CM.PN ---
[facility] 04/02/2022, EMR REVIEWED, PT ADMITTED W/PNA, CM MET W/PT WHO IS [place] HOWEVER A&O AND ABLE TO ANSWER ALL QUESTIONS, PT REPORTS HE LIVES W/, USES A WALKER AND HAS GRAB BARS IN [place], PT REPORTS HE IS INDEP W/ALL CARE AND DENIES HOME SERVICES, PT REPORTS HE PREFERS TO RETURN HOME HOWEVER WOULD BE OPEN TO VNA, NO PREFERENCE ON WHICH VNA, PFIZER X2, VERIFIES PCP IS DAVID MENDOZA, PT REPORTS HCP IS ELIZA [phone]. D/C PLAN: HOME VS HOME W/NEW VNA AND FAMILY FOR TRANSPORT
[2022-04-02] MEDS: Doxazosin Mesylate 2 MG TABLET PO (21:57)
--- NOTE | 2022-04-02 23:41 | PC.NURSE ---
P patient scheduled for thierry Garcia I Dr. Morel notified E awaiting guaiac results,11-7 RN aware
[2022-04-03] VITALS (7 sets, daily range): BP systolic 120–140; BP diastolic 59–89; PULSE 72–97; RESP 16–18; TEMP 36.1–37.5; O2SAT 94–98
[2022-04-03 00:10] LABS: OBS Int Ctl Valid YES
[2022-04-03 00:11] LABS: OBS1 NEGATIVE (NEGATIVE)
[2022-04-03] MEDS: Piperacillin Sodium/Tazobactam 3.375 GM in 0.9 % Sodium Chloride 50 ML IV ×4 (00:37→23:44)
[2022-04-03] MEDS: 0.9 % Sodium Chloride 1,000 ML 125 ML IVCONT ×3 (04:56→21:55)
--- NOTE | 2022-04-03 06:16 | PM.EVENT ---
Event Note Date of Service: 04/03/22 Event Note: Patient noted to have a drop in hemoglobin of 1 unit. Guaiac stool negative. Will resume anticoagulation
--- NOTE | 2022-04-03 06:37 | PC.NURSE ---
HOSPITALIST ON DUTY INSTRUCTED THIS CREW CHIEF TO ADMINISTER LAST NIGHTS DOSE OF HELD XARELTO THIS AM. STOOL FOR OB WAS NEGATIVE FROM SAMPLE OBTAINED AND SENT TO LAB BY HOSPITALIST. VERIFIED AGAIN TO GIVE DOSE NOW AND INSTRUCTED TO DO SO AT 0630.
[2022-04-03] MEDS: Rivaroxaban 20 MG TABLET PO ×2 (06:42→21:56)
[2022-04-03 07:03] LABS: MANUAL DIFF FLAG NO
[2022-04-03 07:10] LABS: Basophils Percent Auto 0.2 % (0-2); Eosinophils Percent Auto 0.7 % (0-4); Hematocrit 23.7 % (42.0-52.0); Hemoglobin 7.9 g/dl (14.0-18.0); Imm Gran Abs Auto 0.03 X10*3/uL (0.00-0.03); Imm Gran Pct Auto 0.7 % (0.0-0.4); Lymphocytes Absolute Auto 0.4 X10*3/uL (1.2-4.9); Lymphocytes Percent Auto 7.8 % (20-40); Mean Corpuscular HGB Conc 33.3 g/dl (31.0-36.0); Mean Corpuscular Hemoglobin 33.6 pg (27.0-33.0); Mean Corpuscular Volume 100.9 fL (80.0-98.0); Monocytes Absolute Auto 0.3 X10*3/uL (0.1-1.2); Monocytes Percent Auto 6.1 % (2-11); Neutrophils Absolute Auto 3.9 x10*3/uL (2.0-8.3); Neutrophils Percent Auto 84.5 % (45-73); Platelet Count 144 X10*3/uL (160-400); Red Blood Count 2.35 X10*6/uL (4.60-5.80); White Blood Count 4.6 X10*3/uL (4.8-10.8)
[2022-04-03 07:32] LABS: Alanine Aminotransferase 21 U/L (0-40); Albumin Level 2.9 g/dL (3.5-5.0); Alkaline Phosphatase 41 U/L (39-117); Anion Gap 11 (12-20); Aspartate Amino Transferase 28 U/L (5-37); Blood Urea Nitrogen 20 mg/dL (9-16); Carbon Dioxide 18 mmol/L (22-29); Chloride 103 mmol/L (96-108); Creatinine Clr Calc Pharmacy 58.1; Estimated Glomerular Filt Rate > 60; Glucose Fasting 102 mg/dL (60-99); Potassium 3.7 mmol/L (3.3-5.1); Sodium 128 mmol/L (135-145); Total Protein 4.5 g/dL (6.5-8.0)
--- NOTE | 2022-04-03 07:43 | HE.PHANOTE ---
RE VANCO loading dose was not entered. retimed for 0900 today. random trough due for 04/05 @0700
[2022-04-03] MEDS: atenoloL 50 MG TABLET PO (08:43)
[2022-04-03] MEDS: traMADoL HCL 50 MG TABLET PO (09:57)
--- NOTE | 2022-04-03 11:26 | P.PNIM_ITS ---
Subjective Subjective Date of Service: 04/03/22 Interval History: No acute issues overnight. More alert today Review of Systems Denies chest pain Admits to shortness of breath Admits to nausea and vomiting denies diarrhea Admits to subjective fevers Physical Exam Vital Signs: Vital Signs: Last Vital Signs Temp 99.3 F 04/03/22 08:00 Pulse 78 04/03/22 08:00 Resp 16 04/03/22 08:00 BP 132/67 04/03/22 08:00 Pulse Ox 94 04/03/22 08:00 O2 Del Method 04/03/22 08:00 BMI result Body Mass Index 25.4 Const: Other: Ill-appearing Resp: Other: Clear to auscultation with only fine crackles at left base Cardio: Other: No S4; positive S1-S2; no S3 murmurs rubs or gallops. Irregularly irregular GI: Other: Soft nontender nondistended normoactive bowel sounds Extrem: Other: No edema bilaterally Objective Data Active Medications Acetaminophen (Acetaminophen 325 Mg Tablet) 650 mg PO Q6H PRN PRN Reason: Pain, Mild (Pain Scale 1-3) Last Admin: 04/02/22 11:39 Dose: 650 mg Documented By: CARL Acetaminophen (Acetaminophen 325 Mg Tablet) 650 mg PO Q4H PRN PRN Reason: Pain, Mild (Pain Scale 1-3) Last Admin: 04/01/22 19:34 Dose: 650 mg Documented By: DARRICK Atenolol (Atenolol 50 Mg Tablet) 50 mg PO DAILY [facility]; Protocol Last Admin: 04/03/22 08:43 Dose: 50 mg Documented By: VONDA Doxazosin Mesylate (Doxazosin Mesylate 2 Mg Tablet) 2 mg PO BEDTIME [facility] Last Admin: 04/02/22 21:57 Dose: 2 mg Documented By: ANGELA Sodium Chloride (Ns) 1,000 mls @ 125 mls/hr IVCONT .Q8H [facility] Last Infusion: 04/03/22 06:43 Dose: 125 mls/hr Documented By: CHRISSIE Vancomycin HCl 1,250 mg/ (Sodium Chloride) 250 mls @ 166.667 mls/hr IV Q24H [facility] Piperacillin Sod/Tazobactam (Sod 3.375 gm/ Sodium Chloride) 50 mls @ 100 mls/hr IV Q6H [facility] Last Infusion: 04/03/22 06:43 Dose: 0 mls/hr Documented By: CHRISSIE Ondansetron HCl (Ondansetron Hcl 4 Mg/2 Ml Vial) 4 mg IVPUSH Q8H PRN PRN Reason: Nausea and Vomiting Pharmacy Consult (Consult Rx Perform Med Rec) 1 each MISCELLANE ONCE PRN PRN Reason: Consult order Pharmacy Consult (Consult Rx Vancomycin Dosing) 1 each MISCELLANE DAILY PRN PRN Reason: Consult order Rivaroxaban (Rivaroxaban 20 Mg Tablet) 20 mg PO BEDTIME [facility] Last Admin: 04/03/22 06:42 Dose: 20 mg Documented By: CHRISSIE Comments: GIVE HELD DOSE FROM LAST NIGHT NOW PER HOSPITALIST Sodium Chloride (0.9 % Sodium Chloride Flush 3 Ml Syringe) 3 ml IVFLUSH QSHIFT [facility] Last Admin: 04/03/22 08:44 Dose: Not Given Documented By: VONDA Non-Admin Reason: IV Running Tramadol HCl (Tramadol Hcl 50 Mg Tablet) 50 mg PO BID PRN PRN Reason: shoulder pain Last Admin: 04/03/22 09:57 Dose: 50 mg Documented By: VONDA Labs CBC & Chem 7: 04/03/22 05:59 04/03/22 05:59 Labs: Laboratory Results - last 24 hr 04/02/22 04/03/22 04/03/22 23:24 05:59 05:59 MCV 100.9 H MCH 33.6 H MCHC 33.3 RDW 16.0 Plt Count 144 L MPV 11.0 Immature Gran % (Auto) 0.7 H Neut % (Auto) 84.5 H Lymph % (Auto) 7.8 L [place] % (Auto) 6.1 Eos % (Auto) 0.7 Baso % (Auto) 0.2 Lymph # (Auto) 0.4 L [place] # (Auto) 0.3 Eos # (Auto) 0.0 Baso # (Auto) 0.0 Abs Immat Gran (auto) 0.03 Absolute Neuts (auto) 3.9 Absolute Nucleated RBC 0.000 Nucleated RBC % (auto) 0.0 Anion Gap 11 L Estim Creat Clear Calc 58.1 Estimated GFR > 60 Fasting Glucose 102 H Calcium 7.0 L D Total Bilirubin 1.0 AST 28 ALT 21 Alkaline Phosphatase 41 Total Protein 4.5 L Albumin 2.9 L Stool Occult Blood NEGATIVE Microbiology Microbiology Results: Microbiology 04/01/22 14:02 Blood Culture - Preliminary Blood - Venous No growth after 24 hours. 04/01/22 13:56 Blood Culture - Preliminary Blood - Venous No growth after 24 hours. Assessment and Plan (1) Left upper lobe pneumonia: Status: Acute (2) Persistent atrial fibrillation: Status: Acute (3) Atherosclerotic cardiovascular disease: Status: Acute Plan 86-year-old male presents with fever and weakness and mild shortness of breath 2 days after a Procrit shot. He states he has been feeling progressively worse and the shortness of breath began over the last 24 hours . ER workup consistent with left upper lobe pneumonia 1. Left upper lobe pneumonia -IV ceftriaxone/azithromycin(3) -titrate O2 to maintain sats greater than or equal to 92% 2. ASCD/chronic atrial fibrillation -rate control adequate -continue beta-blockade adjust as indicated -continue Eliquis Full code [place] Patient requires ongoing hospitalization for treatment of community-acquired pneumonia with IV antibiotics and supplemental oxygen Quality Stroke Does the patient have a stroke diagnosis?: No VTE Prior VTE?: No VTE Risk Level:: Medical - moderate - high VTE Device Contraindication: Treatment Not Indicated VTE Drug Contraindication: N/A - Med Ordered
[2022-04-03] MEDS: 0.9 % Sodium Chloride Flush 3 ML SYRINGE IVFLUSH (16:11)
[2022-04-03] MEDS: methylPREDNISolone Sod Succ 125 MG/2 ML VIAL IVPUSH (16:11)
[2022-04-03] MEDS: Doxazosin Mesylate 2 MG TABLET PO (21:55)
[2022-04-04 04:00] VITALS: BP 157/83; PULSE 78; RESP 18; TEMP 36.3; O2SAT 98
[2022-04-04] MEDS: Piperacillin Sodium/Tazobactam 3.375 GM in 0.9 % Sodium Chloride 50 ML IV ×3 (05:16→17:36)
[2022-04-04 06:39] LABS: Hematocrit 28.5 % (42.0-52.0); Hemoglobin 9.4 g/dl (14.0-18.0); Imm Gran Abs Auto 0.01 X10*3/uL (0.00-0.03); Imm Gran Pct Auto 0.8 % (0.0-0.4); Lymphocytes Absolute Auto 0.2 X10*3/uL (1.2-4.9); Lymphocytes Percent Auto 18.2 % (20-40); MANUAL DIFF FLAG SCAN; Mean Corpuscular Hemoglobin 33.2 pg (27.0-33.0); Mean Corpuscular Volume 100.7 fL (80.0-98.0); Mean Platelet Volume 10.9 fL (9.4-12.4); Monocytes Absolute Auto 0.1 X10*3/uL (0.1-1.2); Monocytes Percent Auto 5.3 % (2-11); Neutrophils Percent Auto 75.7 % (45-73); Platelet Count 161 X10*3/uL (160-400); Red Blood Count 2.83 X10*6/uL (4.60-5.80); Red Cell Distribution Width 15.7 % (11.0-16.0); SCAN SMEAR FLAG 1
[2022-04-04 06:40] LABS: White Blood Count 1.3 X10*3/uL (4.8-10.8)
[2022-04-04 06:57] LABS: Alanine Aminotransferase 30 U/L (0-40); Alkaline Phosphatase 48 U/L (39-117); Anion Gap 14 (12-20); Aspartate Amino Transferase 38 U/L (5-37); Blood Urea Nitrogen 19 mg/dL (9-16); Calcium 7.3 mg/dL (8.4-10.2); Carbon Dioxide 17 mmol/L (22-29); Chloride 106 mmol/L (96-108); Creatinine Clr Calc Pharmacy 68.4; Estimated Glomerular Filt Rate > 60; Glucose Fasting 168 mg/dL (60-99); Potassium 3.9 mmol/L (3.3-5.1); Sodium 133 mmol/L (135-145)
[2022-04-04 07:07] LABS: SLIDE REVIEW VERIFIED
[2022-04-04 07:42] VITALS: BP 141/79; PULSE 62; RESP 17; TEMP 36.2; O2SAT 96
--- NOTE | 2022-04-04 07:50 | HE.PHANOTE ---
Load given 04/03, next level is 04/05, predicted trough still in range 13.6, predicted auc is 457, next trough is 04/05@0700
[2022-04-04] MEDS: Acetaminophen 325 MG TABLET 650 MG PO (08:32)
[2022-04-04] MEDS: traMADoL HCL 50 MG TABLET PO (08:33)
[2022-04-04] MEDS: atenoloL 50 MG TABLET PO (08:33)
--- NOTE | 2022-04-04 08:46 | MHC.CM.PN ---
CASE DISCUSSED W/HOSPITALIST, PT IMPROVING, ANTIC PT WILL D/C TOMORROW 04/05 HOME NO SERVICES W/FAMILY FOR TRANSPORT
[2022-04-04] MEDS: 0.9 % Sodium Chloride 1,000 ML 125 ML IVCONT (09:10)
[2022-04-04] MEDS: methylPREDNISolone Sod Succ 125 MG/2 ML VIAL 60 MG IVPUSH ×3 (09:11→20:44)
[2022-04-04] MEDS: vancomycin HCL 1,250 MG in 0.9 % Sodium Chloride 250 ML 166.67 MG IV (09:58)
[2022-04-04 11:49] VITALS: BP 129/76; PULSE 78; RESP 17; TEMP 36.3; O2SAT 97
--- NOTE | 2022-04-04 12:43 | HO.PM.IMPN ---
Subjective Subjective Date of Service: 04/04/22 Interval History: No acute issues overnight. Eating well; much brighter than yesterday Review of Systems Denies chest pain Admits to shortness of breath Admits to nausea and vomiting denies diarrhea Admits to subjective fevers Physical Exam Vital Signs: Vital Signs: Last Vital Signs Temp 97.3 F 04/04/22 11:49 Pulse 78 04/04/22 11:49 Resp 17 04/04/22 11:49 BP 129/76 04/04/22 11:49 Pulse Ox 97 04/04/22 11:49 O2 Del Method 04/04/22 11:49 BMI result Body Mass Index 25.4 Const: Other: Ill-appearing Resp: Other: Clear to auscultation with only fine crackles at left base Cardio: Other: No S4; positive S1-S2; no S3 murmurs rubs or gallops. Irregularly irregular GI: Other: Soft nontender nondistended normoactive bowel sounds Extrem: Other: No edema bilaterally Objective Data Active Medications Acetaminophen (Acetaminophen 325 Mg Tablet) 650 mg PO Q6H PRN PRN Reason: Pain, Mild (Pain Scale 1-3) Last Admin: 04/04/22 08:32 Dose: 650 mg Documented By: VONDA Acetaminophen (Acetaminophen 325 Mg Tablet) 650 mg PO Q4H PRN PRN Reason: Pain, Mild (Pain Scale 1-3) Last Admin: 04/01/22 19:34 Dose: 650 mg Documented By: DARRICK Albuterol/Ipratropium (Albuterol/Iprat 2.5/0.5mg 3 Ml Ampul.Neb) 3 ml INHALE RQ4H PRN PRN Reason: Wheezing Atenolol (Atenolol 50 Mg Tablet) 50 mg PO DAILY [facility]; Protocol Last Admin: 04/04/22 08:33 Dose: 50 mg Documented By: VONDA Doxazosin Mesylate (Doxazosin Mesylate 2 Mg Tablet) 2 mg PO BEDTIME [facility] Last Admin: 04/03/22 21:55 Dose: 2 mg Documented By: ANGELA Vancomycin HCl 1,250 mg/ (Sodium Chloride) 250 mls @ 166.667 mls/hr IV Q24H [facility] Last Infusion: 04/04/22 12:00 Dose: 166.67 mls/hr Documented By: VONDA Piperacillin Sod/Tazobactam (Sod 3.375 gm/ Sodium Chloride) 50 mls @ 100 mls/hr IV Q6H [facility] Last Admin: 04/04/22 11:31 Dose: 100 mls/hr Documented By: VONDA Methylprednisolone Sodium Succinate (Methylprednisolone Sod Succ 125 Mg/2 Ml Vial) 60 mg IVPUSH Q6H [facility] Last Admin: 04/04/22 09:11 Dose: 60 mg Documented By: VONDA Ondansetron HCl (Ondansetron Hcl 4 Mg/2 Ml Vial) 4 mg IVPUSH Q8H PRN PRN Reason: Nausea and Vomiting Pharmacy Consult (Consult Rx Perform Med Rec) 1 each MISCELLANE ONCE PRN PRN Reason: Consult order Pharmacy Consult (Consult Rx Vancomycin Dosing) 1 each MISCELLANE DAILY PRN PRN Reason: Consult order Rivaroxaban (Rivaroxaban 20 Mg Tablet) 20 mg PO BEDTIME [facility] Last Admin: 04/03/22 21:56 Dose: 20 mg Documented By: ANGELA Sodium Chloride (0.9 % Sodium Chloride Flush 3 Ml Syringe) 3 ml IVFLUSH QSHIFT [facility] Last Admin: 04/04/22 09:10 Dose: Not Given Documented By: VONDA Non-Admin Reason: IV Running Tramadol HCl (Tramadol Hcl 50 Mg Tablet) 50 mg PO BID PRN PRN Reason: shoulder pain Last Admin: 04/04/22 08:33 Dose: 50 mg Documented By: VONDA Labs CBC & Chem 7: 04/04/22 05:47 04/04/22 05:47 Labs: Laboratory Results - last 24 hr 04/04/22 04/04/22 05:47 05:47 MCV 100.7 H MCH 33.2 H MCHC 33.0 RDW 15.7 Plt Count 161 MPV 10.9 Immature Gran % (Auto) 0.8 H Neut % (Auto) 75.7 H Lymph % (Auto) 18.2 L [place] % (Auto) 5.3 Eos % (Auto) 0.0 Baso % (Auto) 0.0 Lymph # (Auto) 0.2 L [place] # (Auto) 0.1 Eos # (Auto) 0.0 Baso # (Auto) 0.0 Abs Immat Gran (auto) 0.01 Absolute Neuts (auto) 1.0 L Absolute Nucleated RBC 0.000 Nucleated RBC % (auto) 0.0 Smear Tech's Comments VERIFIED Anion Gap 14 Estim Creat Clear Calc 68.4 Estimated GFR > 60 Fasting Glucose 168 H D Calcium 7.3 L Total Bilirubin 1.0 AST 38 H ALT 30 Alkaline Phosphatase 48 Total Protein 5.0 L Albumin 3.0 L Microbiology Microbiology Results: Microbiology 04/01/22 14:02 Blood Culture - Preliminary Blood - Venous No growth after 48 hours. 04/01/22 13:56 Blood Culture - Preliminary Blood - Venous No growth after 48 hours. 04/02/22 12:12 Blood Culture - Preliminary Blood - Venous No growth after 24 hours. 04/02/22 12:12 Blood Culture - Preliminary Blood - Venous No growth after 24 hours. Assessment and Plan (1) Pneumonia: Status: Acute (2) Persistent atrial fibrillation: Status: Acute (3) Atherosclerotic cardiovascular disease: Status: Acute Plan 86-year-old male presents with fever and weakness and mild shortness of breath 2 days after a Procrit shot. He states he has been feeling progressively worse and the shortness of breath began over the last 24 hours . ER workup consistent with left upper lobe pneumonia 1. Left upper lobe pneumonia -IV ceftriaxone/azithromycin(4) -titrate O2 to maintain sats greater than or equal to 92% -PT eval in am 2. ASCD/chronic atrial fibrillation -rate control adequate -continue beta-blockade adjust as indicated -continue Eliquis Full code [place] Patient requires ongoing hospitalization for treatment of community-acquired pneumonia with IV antibiotics and supplemental oxygen Quality Stroke Does the patient have a stroke diagnosis?: No VTE Prior VTE?: No VTE Risk Level:: Medical - moderate - high VTE Device Contraindication: Treatment Not Indicated VTE Drug Contraindication: N/A - Med Ordered
[2022-04-04 15:27] VITALS: BP 137/72; PULSE 60; RESP 18; TEMP 36.5; O2SAT 97
[2022-04-04] MEDS: 0.9 % Sodium Chloride Flush 3 ML SYRINGE IVFLUSH (16:39)
[2022-04-04 19:51] VITALS: BP 133/64; PULSE 78; RESP 20; TEMP 36.6; O2SAT 97
[2022-04-04] MEDS: Doxazosin Mesylate 2 MG TABLET PO (20:43)
[2022-04-04] MEDS: Rivaroxaban 20 MG TABLET PO (20:43)
[2022-04-04] MEDS: Famotidine/PF 20 MG/2 ML VIAL IVPUSH (22:07)
[2022-04-04 23:59] VITALS: BP 127/49; PULSE 69; RESP 17; TEMP 36.3; O2SAT 98
[2022-04-05] MEDS: methylPREDNISolone Sod Succ 125 MG/2 ML VIAL 60 MG IVPUSH ×3 (01:50→15:54)
[2022-04-05] MEDS: Piperacillin Sodium/Tazobactam 3.375 GM in 0.9 % Sodium Chloride 50 ML IV ×3 (01:50→13:13)
[2022-04-05] MEDS: 0.9 % Sodium Chloride Flush 3 ML SYRINGE IVFLUSH ×3 (01:51→15:54)
[2022-04-05 04:00] VITALS: BP 155/70; PULSE 55; RESP 17; TEMP 36.1; O2SAT 98
--- NOTE | 2022-04-05 06:38 | P.CDIC_ITS ---
CDI Concurrent Query Documentation Clarification: PHYSICIAN'S DOCUMENTATION REQUEST Date of Query: 04/05/22 0639 Patient Name: Keo Silva Admit Date: 04/01/22 Dear Doctor, A review of the medical record indicates additional documentation may be needed. Please review below and update the documentation accordingly. Risk Factors/Clinical Indicators/Treatments NA on 04/01/22: 128 IVF: NS 1000 mls at 125 mls/hour Q8H NA on 04/04/22: 133 Based on the above, could you clarify in the Progress Notes the appropriate diagnosis, if significant, that supports the above abnormalities and additional evaluation, monitoring, and/or treatment rendered: * Based on the above, please provide a diagnosis associated with the evaluation, monitoring and treatment of the patient's sodium level * Other (please specify) * Unable to determine Use of terms such as suspected, likely, concern for, or probable (associated with a specific diagnosis that is being evaluated, monitored, or treated as if it exists) are acceptable and can be coded in the inpatient setting, when documented at the time of discharge. Thank you, Karli Jones RN Extension: [phone] Please use your independent medical judgment in providing your response. THIS QUERY IS PART OF THE PERMANENT MEDICAL RECORD Provider Response: Other Other Diagnosis: Hyponatremia
[2022-04-05 07:30] VITALS: BP 121/64; PULSE 65; RESP 18; TEMP 36.5; O2SAT 96
[2022-04-05 07:54] LABS: Vancomycin Random 7.2 mcg/mL (15-20)
[2022-04-05 08:53] LABS: Creatinine Clr Calc Pharmacy 64.6; Estimated Glomerular Filt Rate > 60
[2022-04-05 09:24] LABS: Hematocrit 28.3 % (42.0-52.0); Hemoglobin 9.6 g/dl (14.0-18.0); Mean Corpuscular HGB Conc 33.9 g/dl (31.0-36.0); Mean Corpuscular Hemoglobin 33.3 pg (27.0-33.0); Mean Corpuscular Volume 98.3 fL (80.0-98.0); Mean Platelet Volume 10.4 fL (9.4-12.4); NRBC Pct Auto 0.5 /100WBC (0.0-0.2); Platelet Count 196 X10*3/uL (160-400); Red Blood Count 2.88 X10*6/uL (4.60-5.80); Red Cell Distribution Width 15.8 % (11.0-16.0); White Blood Count 3.8 X10*3/uL (4.8-10.8)
[2022-04-05] MEDS: atenoloL 50 MG TABLET PO (09:37)
[2022-04-05] MEDS: vancomycin HCL 1,500 MG in 0.9 % Sodium Chloride 500 ML 333.33 MG IV (09:37)
[2022-04-05 10:06] VITALS: BP 121/64; PULSE 65; O2SAT 96
[2022-04-05 10:14] LABS: Anion Gap 12 (12-20); Blood Urea Nitrogen 24 mg/dL (9-16); Calcium 7.6 mg/dL (8.4-10.2); Carbon Dioxide 18 mmol/L (22-29); Chloride 107 mmol/L (96-108); Creatinine Clr Calc Pharmacy 55.8; Estimated Glomerular Filt Rate > 60; Glucose Random 271 mg/dL (60-115); Potassium 4.3 mmol/L (3.3-5.1); Sodium 133 mmol/L (135-145)
[2022-04-05 12:00] VITALS: BP 163/84; PULSE 59; RESP 18; TEMP 37.1; O2SAT 99
--- NOTE | 2022-04-05 15:47 | W.MHC.F2F ---
Service Date Service Date: 04/05/22 Encounter Date of encounter: 04/05/22 Reasons for Services Signs and symptoms assessed: PNA deconditioning Reason for usp: medication management Reason for physical therapy: home safety and mobility, therapeutic exercises, gait/transfer training, assess need for DME, ADL training and energy conservation MD Overseeing Care: Ambika Tsang Homebound: Leaving the home is medically contraindicated at this time without the asist of a device and/or another person due th the listed conditions above and below. Reason homebound: unsteady gait / fall risk and weakness related to hospital stay Certification: Based on the above findings, I certify that this patient is confined to the home and needs intermittent usp care, physical therapy and/or speech therapy, or continues to need occupational therapy. The patient is under my care, and I have initiated the establishment of the plan of care. The patient will be followed by a physician who will periodically review the plan of care.
--- NOTE | 2022-04-05 15:58 | PM.DS ---
DS: Providers Provider Date of Service: 04/05/22 Date of admission: 04/01/22 16:11 Date of discharge: 04/05/22 Primary care physician: Ambika Tsang MD DS: Diagnosis Discharge Diagnosis (1) Pneumonia: Status: Acute (2) Persistent atrial fibrillation: Status: Acute (3) Atherosclerotic cardiovascular disease: Status: Acute (4) Hyponatremia: Status: Acute DS: Summary Hospital Course Hospital Course: from admission H+P by hospitalist Cameron Paniagua DO, 04/01/22: 86 year old male presenting to the emergency department today with nausea, vomiting, and a recent fall. Patient states that 2 days ago, he received his latest ProCrit shot and has felt terrible ever since with nausea, vomiting, and body aches. Patient states that his grandson was recently over who tested positive for COVID-19. Patient states that he did have a fall yesterday in the bathroom but did not strike his head or have any loss of consciousness. ER work up consistent with left upper lobe pneumonia for which patient will be admitted He was admitted to the hospitalist service and treated with 4 days of IV vancomycin and piperacillin-tazobactam. Blood cultures were negative and he did not require supplemental oxygen. Covid-19 testing by PCR x2 was negative. His symptoms improved and he was discharged home with [facility] services for home PT. He was prescribed 3 days of PO doxycycline and amoxicillin-clavulanate to complete therapy. Sodium of 128 at admission improved to 133 at discharge. He should follow up with his primary care doctor in 1 week. Time Spent with Patient Time attestation: Total time spent providing and/or coordinating discharge services: Discharge coordination time: Greater than 30 minutes Quality: Safe Use of Opioids Does Pt have an Active Cancer Diagnosis on the Problem List?: No Quality: Stroke Does the patient have a stroke diagnosis?: No Physical Exam Vital Signs: Vital Signs: Last Vital Signs Temp 98.7 F 04/05/22 12:00 Pulse 59 04/05/22 12:00 Resp 18 04/05/22 12:00 BP 163/84 H 04/05/22 12:00 Pulse Ox 99 04/05/22 12:00 O2 Del Method 04/05/22 12:00 BMI result Body Mass Index 25.4 Gen: in no acute distress HEENT: sclera anicteric, moist mucus membranes Neck: supple Lungs: clear to auscultation bilaterally Heart: regular rate and rhythm, no murmurs Abd: soft, non-tender, non-distended Ext: no edema Skin: warm/well-perfused Neuro: alert and oriented x3, no focal findings Psych: appropriate affect DS: Data Data Completed and Pending Completed studies during hospitalization [Text1]: Laboratory Results WBC 3.8 X10*3/uL (4.8-10.8) L 04/05/22 09:17 RBC 2.88 X10*6/uL (4.60-5.80) L 04/05/22 09:17 Hgb 9.6 g/dl (14.0-18.0) L 04/05/22 09:17 Hct 28.3 % (42.0-52.0) L 04/05/22 09:17 MCV 98.3 fL (80.0-98.0) H 04/05/22 09:17 MCH 33.3 pg (27.0-33.0) H 04/05/22 09:17 MCHC 33.9 g/dl (31.0-36.0) 04/05/22 09:17 RDW 15.8 % (11.0-16.0) 04/05/22 09:17 Plt Count 196 X10*3/uL (160-400) 04/05/22 09:17 MPV 10.4 fL (9.4-12.4) 04/05/22 09:17 Immature Gran % (Auto) 0.8 % (0.0-0.4) H 04/04/22 05:47 Neut % (Auto) 75.7 % (45-73) H 04/04/22 05:47 Lymph % (Auto) 18.2 % (20-40) L 04/04/22 05:47 [place] % (Auto) 5.3 % (2-11) 04/04/22 05:47 Eos % (Auto) 0.0 % (0-4) 04/04/22 05:47 Baso % (Auto) 0.0 % (0-2) 04/04/22 05:47 Lymph # (Auto) 0.2 X10*3/uL (1.2-4.9) L 04/04/22 05:47 [place] # (Auto) 0.1 X10*3/uL (0.1-1.2) 04/04/22 05:47 Eos # (Auto) 0.0 X10*3/uL (0.0-0.4) 04/04/22 05:47 Baso # (Auto) 0.0 X10*3/uL (0.0-0.2) 04/04/22 05:47 Abs Immat Gran (auto) 0.01 X10*3/uL (0.00-0.03) 04/04/22 05:47 Absolute Neuts (auto) 1.0 x10*3/uL (2.0-8.3) L 04/04/22 05:47 Absolute Nucleated RBC 0.020 X10*3/uL (0.0-0.012) H 04/05/22 09:17 Nucleated RBC % (auto) 0.5 /100WBC (0.0-0.2) H 04/05/22 09:17 Smear Tech's Comments VERIFIED 04/04/22 05:47 PT 21.5 SEC (10.0-13.1) H 04/01/22 13:56 INR 1.8 (0.9-1.1) H 04/01/22 13:56 APTT 33.1 SEC (24.1-38.0) 04/01/22 13:56 Sodium 133 mmol/L (135-145) L 04/05/22 09:17 Potassium 4.3 mmol/L (3.3-5.1) 04/05/22 09:17 Chloride 107 mmol/L (96-108) 04/05/22 09:17 Carbon Dioxide 18 mmol/L (22-29) L 04/05/22 09:17 Anion Gap 12 (12-20) 04/05/22 09:17 BUN 24 mg/dL (9-16) H 04/05/22 09:17 Creatinine 1.03 mg/dL (0.5-1.4) 04/05/22 09:17 Estim Creat Clear Calc 55.8 04/05/22 09:17 Estimated GFR > 60 04/05/22 09:17 Random Glucose 271 mg/dL (60-115) H D 04/05/22 09:17 Fasting Glucose 168 mg/dL (60-99) H D 04/04/22 05:47 Lactic Acid 1.5 mmol/L (0.5-2.0) 04/01/22 13:56 Calcium 7.6 mg/dL (8.4-10.2) L 04/05/22 09:17 Magnesium 1.7 mg/dL (1.6-2.6) 04/01/22 13:56 Total Bilirubin 1.0 mg/dL (0.0-1.0) 04/04/22 05:47 AST 38 U/L (5-37) H 04/04/22 05:47 ALT 30 U/L (0-40) 04/04/22 05:47 Alkaline Phosphatase 48 U/L (39-117) 04/04/22 05:47 Troponin I High Sens 12.5 ng/L (<3.5-35.0) 04/01/22 13:56 Total Protein 5.0 g/dL (6.5-8.0) L 04/04/22 05:47 Albumin 3.0 g/dL (3.5-5.0) L 04/04/22 05:47 Lipase 5 U/L (8-78) L 04/01/22 13:56 Procalcitonin 0.90 ng/mL 04/05/22 09:17 Stool Occult Blood NEGATIVE (NEGATIVE) 04/02/22 23:24 Random Vancomycin 7.2 mcg/mL (15-20) L 04/05/22 06:46 Respiratory Panel Martin See Note 04/01/22 14:45 Adenovirus (Rapid PCR) Not Detected (Not Detect.) 04/01/22 14:45 B.pert (TEM-PCR) Not Detected (Not Detect.) 04/01/22 14:45 B.parapertussis DNA PCR Not Detected (Not Detect.) 04/01/22 14:45 C. pneumoniae DNA (PCR) Not Detected (Not Detect.) 04/01/22 14:45 Coronavirus OC43 (PCR) Not Detected (Not Detect.) 04/01/22 14:45 Coronavirus HKU1 (PCR) Not Detected (Not Detect.) 04/01/22 14:45 Coronavirus 229E (PCR) Not Detected (Not Detect.) 04/01/22 14:45 COVID-19 (CARMELO) Negative (Negative) 04/01/22 13:56 COVID-19 Clin Com See Note 04/01/22 13:56 Coronavirus NL63 (PCR) Not Detected (Not Detect.) 04/01/22 14:45 Human Metapneumovir PCR Not Detected (Not Detect.) 04/01/22 14:45 Influenza Type A (JANY) Negative (Negative) 04/01/22 13:56 Influenza A (RT-PCR) Not Detected (Not Detect.) 04/01/22 14:45 Influenza Type B (JANY) Negative (Negative) 04/01/22 13:56 Influenza B (RT-PCR) Not Detected (Not Detect.) 04/01/22 14:45 Influenza A & B Note See Note 04/01/22 13:56 M. pneumoniae (PCR) Not Detected (Not Detect.) 04/01/22 14:45 Parainfluenza 1 (PCR) Not Detected (Not Detect.) 04/01/22 14:45 Parainfluenza 2 (PCR) Not Detected (Not Detect.) 04/01/22 14:45 Parainfluenza 3 (PCR) Not Detected (Not Detect.) 04/01/22 14:45 Parainfluenza 4 (PCR) Not Detected (Not Detect.) 04/01/22 14:45 RSV (PCR) Not Detected (Not Detect.) 04/01/22 14:45 Entero/Rhino (PCR) Not Detected (Not Detect.) 04/01/22 14:45 SARS-CoV-2 RNA (RT-PCR) Not Detected (Not Detect.) 04/01/22 14:45 Impressions Abdomen/Pelvis CT 04/01/22 14:25 IMPRESSION: 1. No acute injury identified in the chest, abdomen, or pelvis. 2. No acute fracture. 3. Patchy airspace opacities in the left upper lobe, possibly pneumonia. Correlate clinically. 4. Trace left pleural effusion. 5. No acute process identified in the abdomen. 6. Extensive colonic diverticulosis. No evidence of acute diverticulitis. 7. No evidence of bowel obstruction. 8. Multiple additional findings, as detailed above. Cervical Spine CT 04/01/22 14:25 IMPRESSION: 1. No intracranial hemorrhage or calvarial fracture. 2. No traumatic subluxation or acute cervical spine fracture. Chest CT 04/01/22 14:25 IMPRESSION: 1. No acute injury identified in the chest, abdomen, or pelvis. 2. No acute fracture. 3. Patchy airspace opacities in the left upper lobe, possibly pneumonia. Correlate clinically. 4. Trace left pleural effusion. 5. No acute process identified in the abdomen. 6. Extensive colonic diverticulosis. No evidence of acute diverticulitis. 7. No evidence of bowel obstruction. 8. Multiple additional findings, as detailed above. Head CT 04/01/22 14:25 IMPRESSION: 1. No intracranial hemorrhage or calvarial fracture. 2. No traumatic subluxation or acute cervical spine fracture. Chest X-Ray 04/03/22 08:40 IMPRESSION: Bilateral patchy infiltrates are nonspecific, but suggest an infectious/inflammatory process however, a cardiogenic etiology cannot be excluded. Correlate clinically. Discharge Plan Discharge Patient Disposition: Home Health Service Discharge Diagnosis: pneumonia Referrals: Ambika Tsang MD [Primary Care Provider] - 1 Week Discharge Medications: New doxycycline monohydrate 100 mg tablet 100 mg PO BID Qty: 6 0RF amoxicillin-pot clavulanate 875-125 mg tablet 1 tab PO BID Qty: 6 0RF Continued terazosin 1 mg capsule 2 mg PO BEDTIME Qty: 180 1RF atenolol 25 mg tablet 50 mg PO DAILY Qty: 90 1RF Xarelto 20 mg tablet 20 mg PO BEDTIME acetaminophen [Arthritis Pain Reliever] 650 mg tablet extended release 650 mg PO Q12H tramadol 50 mg tablet 50 mg PO BID PRN (Reason: shoulder pain) Qty: 60 0RF Discharge Orders: Discharge Order (Routine); Ordered 04/05/22 Ordered By: Madonna Nichole Diet: Advance to usual diet Activity on Discharge: As tolerated Stand Alone Forms: Patient Portal Discharge page Care Plan Goals: cure of pneumonia Health Concerns: pneumonia Plan of Treatment: take antibiotics for 3 days: doxycycline 100 mg twice daily amoxicillin-clavulanate 875-125 mg twice daily see your primary care doctor in 1 week return to the hospital if you develop fever or worsening shortness of breath Assessment: See Discharge Summary Patient Instructions: Pneumonia (DC)
[2022-04-05 16:00] VITALS: BP 155/84; PULSE 60; RESP 18; TEMP 36.4; O2SAT 99
--- NOTE | 2022-04-05 16:04 | MHC.CM.PN ---
Addendum entered by Linh Guaman 04/05/22 16:16: [facility]. ELIZA AWARE IMM 04/04 IN CHART Original Note: PATIENT IS DC HOME WITH [facility] RECOMMENDATIONS.'NO REFERRALS PLACED. [facility] REFERRAL PLACED
[2022-04-05] MEDS: Amoxicillin/Potassium Clav 875 MG TABLET PO (17:31)
== END 2022-04-05 17:40 | disposition home health service (06) | DRG 194 ==
LOC: HO.ED 13:32 → HO.EDOVER 16:47 → HO.S3 04-02 02:58
PROVIDERS: Internal Medicine; Physician Assistant Medical; Admitting Provider Hospitalist; Emergency Provider Internal Medicine; PCP Internal Medicine; Visit Provider Family Medicine
DX: J18.9 Pneumonia, unspecified organism (principal); E87.1 Hypo-osmolality and hyponatremia; I48.19 Other persistent atrial fibrillation; I25.10 Atherosclerotic heart disease of native coronary artery without angina pectoris; N40.0 Benign prostatic hyperplasia without lower urinary tract symptoms; D64.9 Anemia, unspecified; I25.2 Old myocardial infarction; Z20.822 Contact with and (suspected) exposure to COVID-19; Z87.01 Personal history of pneumonia (recurrent); Z87.891 Personal history of nicotine dependence; Z79.01 Long term (current) use of anticoagulants; Z79.899 Other long term (current) drug therapy
CPT/HCPCS: 36415; 70450; 71045; 71250; 72125; 74176; 80048; 80053; 80202; 82272; 82565; 83605; 83690; 83735; 84145; 84484; 85025; 85027; 85610; 85730; 87040; 87502; 87633; 87635; 93005; 96361; 96365; 96375; 97162; 99285; J0456; J0696; J2405; J2543; J2930; J3370

== ENCOUNTER 2022-06-16 08:39 | Outpatient (REF) | payer MEDICARE, SELFPAY ==
[2022-06-16 11:34] LABS: Cholesterol 181 mg/dL; HDL Cholesterol 58 mg/dL; LDL Cholesterol Calculated 104 mg/dl; Triglycerides 97 mg/dL
== END 2022-06-16 08:40 | disposition home or self-care (01) ==
LOC: HO.HMGCLDS 08:39
PROVIDERS: PCP Internal Medicine; Visit Provider Internal Medicine
DX: I10 Essential (primary) hypertension (principal)
CPT/HCPCS: 36415; 80061

== ENCOUNTER 2022-11-22 10:00 | Outpatient (RCR) | payer MEDICARE, SELFPAY ==
[2021-06-01 13:55] VITALS: BP 176/85; PULSE 68; RESP 14; TEMP 36.2; O2SAT 97; BMI 26.7
--- NOTE | 2021-06-01 14:23 | PM.HEMONCCN ---
Subjective - Subjective Chief complaint: Low blood counts Patient: new to practice Consult date: 06/01/21 Primary Care Provider: Ambika Tsang MD Medical Summary: Diagnosis: Macrocytic anemia May 2021 HPI - Consult Narrative Reason for consult: Macrocytic anemia Narrative: Keo Silva is a 86 year old male referred for management of macrocytic anemia. He was noted to be anemic with a hemoglobin of 10.7 in January 2021. He was prescribed iron, but this did not improve his anemia as noted in May 2021. Patient denies any complaints of excess fatigue, shortness of breath or palpitation. He denies change in bowel habits, loss of appetite or weight loss. He is accompanied by his today and their main concern is that he gets easily excitable and has jerky movements of his body. They are waiting to see neurologist. Has had previous colonoscopy and endoscopy. He has chronic body aches related to his arthritis. He had spinal surgery on his neck previously. He has limited range of motion of his neck. He was just started on tramadol. He denies any recent infections or taking any other new medications. He is on chronic anticoagulation for his atrial fibrillation, he takes Xarelto. Review of Systems - Constitutional Reports as per HPI, Denies chills, Denies fatigue, Denies fever(s), Denies lack of energy, Denies malaise - ENT Reports neck pain - Cardiovascular Reports no additional cardiovascular complaints - Respiratory Reports no additional respiratory complaints - Gastrointestinal Reports no additional gastrointestinal complaints Oncology Screenings - ECOG Performance Status ECOG Performance Status: 2 [facility] Medical History: Medical History (Last Reviewed 06/01/21 @ 13:58 by Clau Nunez) Anemia Atherosclerotic cardiovascular disease Benign prostatic hyperplasia Cervical spondylosis with radiculopathy Chronic fatigue and malaise Depression Hearing loss Left hydrocele Macrocytic anemia Mild valvular heart disease Myoclonic jerking Persistent atrial fibrillation Right rotator cuff tear Shoulder pain, left Family History: Family History (Last Reviewed 06/01/21 @ 13:58 by Clau Nunez) Father CVD (cardiovascular disease) Mother No problems noted. Surgical History: Surgical History (Last Reviewed 06/01/21 @ 13:58 by Clau Nunez) History of fusion of cervical spine History of heart artery stent Social History: Social History (Last Updated 06/01/21 @ 13:59 by Clau Nunez) Living Situation History: Household Members: Spouse Housing: House Alcohol History: Alcohol intake: current Alcohol History Details: Alcohol intake frequency: a few times a month Alcohol type: beer Tobacco History: Patient Tobacco Use Status: Former Tobacco user Tobacco use type: Cigarette Cigarette Packs Per Day: 0.5 Years Smoked: 1 e-Cigarette/Vaping Use: Never Used Second Hand Smoke Exposure: No Substance Use History: Use of substances other than those prescribed or required for medical reasons: No Occupation Assessmet: Current occupational status: retired Home Medications and Allergies Home Medications Medication Instructions Recorded Confirmed Type terazosin 1 mg capsule 2 mg PO BEDTIME cap 01/07/21 06/01/21 History acetaminophen 650 mg 650 mg PO Q12H 02/22/21 06/01/21 History tablet,extended release (Arthritis Pain Reliever) cholecalciferol (vitamin D3) 125 125 mcg PO DAILY 05/18/21 06/01/21 History mcg (5,000 unit) capsule ferrous sulfate 325 mg (65 mg 325 mg PO DAILY 05/18/21 06/01/21 History iron) tablet,delayed release Allergies Allergy/AdvReac Type Severity Reaction Status Date / Time No Known Allergies Allergy Verified 06/01/21 14:00 [No Known Allergies*] Physical Exam Vital signs: Vital Signs Temp 97.2 F 06/01/21 13:55 Pulse 68 06/01/21 13:55 Resp 14 06/01/21 13:55 BP 176/85 H 06/01/21 13:55 Pulse Ox 97 06/01/21 13:55 Intake & Output 05/31/21 06/01/21 06/01/21 18:59 06:59 18:59 Other: Weight 84.5 kg Organ Weight in Grams 94701 Weight 84.5 kg - Constitutional Present: no acute distress - Routine HEENT Exam Head: Present: normal inspection Eye: Present: EOMI, normal appearance - Routine Neck Exam Present: supple. Absent: lymphadenopathy - Routine Respiratory Exam Present: CTAB. Absent: accessory muscle use - Routine Cardiovascular Exam Cardiovascular: Present: RRR, S1, S2 - Routine Extremities Exam Absent: calf tenderness - Routine Skin Exam Present: intact. Absent: cyanosis Hem/Onc Consult Result - Labs CBC & Chem 7: 06/01/21 14:32 Assessment and Plan Patient Active problem list reviewed?: Yes (1) Anemia Status: Chronic Assessment and plan: 1. This is a 86-year-old male with worsening macrocytic anemia. He has no hematinic deficiencies. He is developing iron overload, ferrous sulfate can be discontinued. No known chronic kidney or liver disease. No evidence of hemolysis or medication induced anemia. Probable causes are primary bone marrow disorder such as lymphoma, plasma cell dyscrasia and myelodysplastic syndrome. Hematological workup including serum protein electrophoresis and immunofixation has been submitted. Depending on above results, further testing with bone marrow aspiration/biopsy will be performed if necessary. Fortunately, he is not overtly symptomatic at this time from his anemia. Follow-up in 1 month. I thank you very much for this consultation. - Time Spent With Patient Time Spent with Patient (in minutes): 30
[2021-06-01 14:38] LABS: MANUAL DIFF FLAG NO
[2021-06-01 14:46] LABS: Basophils Percent Auto 0.3 % (0-2); Eosinophils Percent Auto 0.1 % (0-4); Hematocrit 30.8 % (42-52); Hemoglobin 10.2 g/dl (14.0-18.0); Imm Gran Abs Auto 0.08 X10*3/uL (0.00-0.03); Imm Gran Pct Auto 1.1 % (0.0-0.4); Immature Retic Fraction 24.8 % (2.3-13.4); Lymphocytes Absolute Auto 1.2 X10*3/uL (1.2-4.9); Lymphocytes Percent Auto 15.4 % (20-40); Mean Corpuscular HGB Conc 33.1 g/dl (31.0-36.0); Mean Corpuscular Hemoglobin 34.2 pg (27.0-33.0); Mean Corpuscular Volume 103.4 fL (80-98); Mean Platelet Volume 11.1 fL (9.4-12.4); Monocytes Absolute Auto 0.9 X10*3/uL (0.1-1.2); Monocytes Percent Auto 12.2 % (2-11); NRBC Pct Auto 1.2 /100WBC (0.0-0.2); Neutrophils Absolute Auto 5.3 X10*3/uL (2.0-8.3); Neutrophils Percent Auto 70.9 % (45-73); Platelet Count 209 X10*3/uL (160-400); Red Blood Count 2.98 X10*6/uL (4.60-5.80); Retic HGB Equivalent 36.5 pg (30.0-35.0); Reticulocyte Percent 2.1 % (0.5-1.8); Reticulocytes Absolute 0.063 X10*6/uL (0.026-0.095); White Blood Count 7.5 X10*3/uL (4.8-10.8)
[2021-06-01 15:05] LABS: Alanine Aminotransferase 18 U/L (0-40); Albumin Level 4.3 g/dL (3.5-5.0); Alkaline Phosphatase 36 U/L (39-117); Aspartate Amino Transferase 15 U/L (5-37); Bilirubin Direct 0.4 mg/dL (0.0-0.5); Bilirubin Total 0.8 mg/dL (0.0-1.0); Total Protein 6.6 g/dL (6.5-8.0)
--- NOTE | 2021-06-01 15:58 | MHC.HEMONCMA ---
Patient came in for a consult today for anemia, he is okay- he is very easily startled and has a myoclonic jerk. Clinical summary was reviewed and updated. Patient had labs and will return in 1 month for a follow up.
[2021-06-01 16:18] LABS: Ferritin 957 ng/mL (20-250)
--- NOTE | 2021-06-01 16:57 | MHC.HEMONC ---
pt called per request of Dr Adan to advise him to stop his ferrous sulfate per his labs today. He understands and I have removed med from his list.
[2021-06-04 12:31] LABS: IgA 177 mg/dL (70-320); IgG 782 mg/dL (600-1540); IgM 57 mg/dL (50-300)
[2021-06-08 20:42] LABS: Prot Elec - Alpha1 0.2 g/dL (0.2-0.3); Prot Elec - Alpha2 0.7 g/dL (0.5-0.9); Prot Elec - Beta 1 0.4 g/dL (0.4-0.6); Prot Elec - Beta 2 0.3 g/dL (0.2-0.5); Prot Elec - Gamma 0.7 g/dL (0.8-1.7); Prot Elec - Total Protein 6.3 g/dL (6.1-8.1)
[2021-07-05 08:52] VITALS: BP 137/66; PULSE 68; RESP 14; TEMP 36.1; O2SAT 99; BMI 25.8
--- NOTE | 2021-07-05 08:59 | PM.HEMONCPN ---
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 No hematinic deficiencies. Mild renal insufficiency with a creatinine of 1.29 mg/dL. Interval History Interval history: Patient is here in follow-up, he is accompanied by his today. He is doing about the same and has had no interim medical problems. He denies any worsening of fatigue, no exertional chest pain or shortness of breath. He continues to feel jumpy and startled easily. Review of Systems - Constitutional Reports as per HPI, Reports no additional constitutional complaints - Cardiovascular Reports no additional cardiovascular complaints - Respiratory Reports no additional respiratory complaints [facility] Medical History: Medical History (Last Reviewed 07/05/21 @ 08:54 by Clau Nunez) Anemia Atherosclerotic cardiovascular disease Benign prostatic hyperplasia Cervical spondylosis with radiculopathy Chronic fatigue and malaise Depression Hearing loss Left hydrocele Macrocytic anemia Mild valvular heart disease Myoclonic jerking Persistent atrial fibrillation Right rotator cuff tear Shoulder pain, left Family History: Family History (Last Reviewed 07/05/21 @ 08:55 by Clau Nunez) Father CVD (cardiovascular disease) Mother No problems noted. Surgical History: Surgical History (Last Reviewed 07/05/21 @ 08:54 by Clau Nunez) History of fusion of cervical spine History of heart artery stent Social History: Social History (Last Reviewed 07/05/21 @ 08:55 by Clau Nunez) Living Situation History: Household Members: Spouse Housing: House Alcohol History: Alcohol intake: current Alcohol History Details: Alcohol intake frequency: a few times a month Alcohol type: beer Tobacco History: Patient Tobacco Use Status: Former Tobacco user Tobacco use type: Cigarette Cigarette Packs Per Day: 0.5 Years Smoked: 1 e-Cigarette/Vaping Use: Never Used Second Hand Smoke Exposure: No Substance Use History: Use of substances other than those prescribed or required for medical reasons: No Occupation Assessmet: Current occupational status: retired Home Medications and Allergies Home Medications Medication Instructions Recorded Confirmed Type terazosin 1 mg capsule 2 mg PO BEDTIME cap 01/07/21 07/05/21 History acetaminophen 650 mg 650 mg PO Q12H 02/22/21 07/05/21 History tablet,extended release (Arthritis Pain Reliever) cholecalciferol (vitamin D3) 125 125 mcg PO DAILY 05/18/21 07/05/21 History mcg (5,000 unit) capsule Allergies Allergy/AdvReac Type Severity Reaction Status Date / Time No Known Allergies Allergy Verified 07/05/21 08:55 [No Known Allergies*] Exam Vital signs: Vital Signs Temp 97.0 F 07/05/21 08:52 Pulse 68 07/05/21 08:52 Resp 14 07/05/21 08:52 BP 137/66 07/05/21 08:52 Pulse Ox 99 07/05/21 08:52 Intake & Output 07/04/21 07/05/21 07/05/21 18:59 06:59 18:59 Other: Weight 81.6 kg [place] Weight in Grams 94580 Weight 81.6 kg Body Mass Index 25.8 - Constitutional Present: no acute distress - Routine HEENT Exam Head: Present: normal inspection - Routine Respiratory Exam Present: CTAB. Absent: accessory muscle use - Routine Cardiovascular Exam Cardiovascular: Present: RRR, S1, S2 - Routine Extremities Exam Absent: calf tenderness - Routine Skin Exam Present: intact. Absent: cyanosis Data - Labs CBC & Chem 7: 07/05/21 09:28 07/05/21 09:28 Labs: 06/01/21 14:32 Complete Blood Count Auto Diff Routine Ferritin Routine Immunofixation Pnl, Serum Routine Liver Panel Routine Protein Electrophoresis, Serum Routine Reticulocyte Count Routine Laboratory Last Values WBC 7.5 X10*3/uL (4.8-10.8) 06/01/21 14:32 RBC 2.98 X10*6/uL (4.60-5.80) L 06/01/21 14:32 Hgb 10.2 g/dl (14.0-18.0) L 06/01/21 14:32 Hct 30.8 % (42-52) L 06/01/21 14:32 MCV 103.4 fL (80-98) H 06/01/21 14:32 MCH 34.2 pg (27.0-33.0) H 06/01/21 14:32 MCHC 33.1 g/dl (31.0-36.0) 06/01/21 14:32 RDW 15.0 % (11.0-16.0) 06/01/21 14:32 Plt Count 209 X10*3/uL (160-400) 06/01/21 14:32 MPV 11.1 fL (9.4-12.4) 06/01/21 14:32 Immature Gran % (Auto) 1.1 % (0.0-0.4) H 06/01/21 14:32 Neut % (Auto) 70.9 % (45-73) 06/01/21 14:32 Lymph % (Auto) 15.4 % (20-40) L 06/01/21 14:32 [place] % (Auto) 12.2 % (2-11) H 06/01/21 14:32 Eos % (Auto) 0.1 % (0-4) 06/01/21 14:32 Baso % (Auto) 0.3 % (0-2) 06/01/21 14:32 Lymph # (Auto) 1.2 X10*3/uL (1.2-4.9) 06/01/21 14:32 [place] # (Auto) 0.9 X10*3/uL (0.1-1.2) 06/01/21 14:32 Eos # (Auto) 0.0 X10*3/uL (0.0-0.4) 06/01/21 14:32 Baso # (Auto) 0.0 X10*3/uL (0.0-0.2) 06/01/21 14:32 Abs Immat Gran (auto) 0.08 X10*3/uL (0.00-0.03) H 06/01/21 14:32 Absolute Neuts (auto) 5.3 X10*3/uL (2.0-8.3) 06/01/21 14:32 Absolute Nucleated RBC 0.090 X10*3/uL (0.0-0.012) H 06/01/21 14:32 Nucleated RBC % (auto) 1.2 /100WBC (0.0-0.2) H 06/01/21 14:32 Absolute Retic 0.063 X10*6/uL (0.026-0.095) 06/01/21 14:32 Percent Retic 2.1 % (0.5-1.8) H 06/01/21 14:32 Immature Retic Fraction 24.8 % (2.3-13.4) H 06/01/21 14:32 Retic Hgb Equivalent 36.5 pg (30.0-35.0) H 06/01/21 14:32 Ferritin 957 ng/mL (20-250) H 06/01/21 14:32 Total Bilirubin 0.8 mg/dL (0.0-1.0) 06/01/21 14:32 Direct Bilirubin 0.4 mg/dL (0.0-0.5) 06/01/21 14:32 AST 15 U/L (5-37) 06/01/21 14:32 ALT 18 U/L (0-40) 06/01/21 14:32 Alkaline Phosphatase 36 U/L (39-117) L 06/01/21 14:32 Total Protein 6.6 g/dL (6.5-8.0) 06/01/21 14:32 Total Protein (PEP) 6.3 g/dL (6.1-8.1) 06/01/21 14:32 Albumin 4.3 g/dL (3.5-5.0) 06/01/21 14:32 Albumin (PEP) 4.0 g/dL (3.8-4.8) 06/01/21 14:32 Uupjg-4-Wdnpauxml 0.2 g/dL (0.2-0.3) 06/01/21 14:32 Amskd-2-Mxxzcxodk 0.7 g/dL (0.5-0.9) 06/01/21 14:32 Gqbi-3-Zekoykpc 0.4 g/dL (0.4-0.6) 06/01/21 14:32 Zifq-2-Tqcuqozi 0.3 g/dL (0.2-0.5) 06/01/21 14:32 Gamma Globulins 0.7 g/dL (0.8-1.7) L 06/01/21 14:32 Abnorm Protein Band 1 TNP 06/01/21 14:32 Abnorm Protein Band 2 TNP 06/01/21 14:32 Abnorm Protein Band 3 TNP 06/01/21 14:32 PEP Interpretation SEE NOTE 06/01/21 14:32 IgG Total 782 mg/dL (600-1540) 06/01/21 14:32 IgA Total 177 mg/dL (70-320) 06/01/21 14:32 IgM 57 mg/dL (50-300) 06/01/21 14:32 LES Interpretation SEE NOTE 06/01/21 14:32 Assessment and Plan Patient Active problem list reviewed?: Yes (1) Anemia Status: Chronic Assessment and plan: 1. This is a 86-year-old male with worsening macrocytic anemia. He has no hematinic deficiencies. No known chronic kidney or liver disease. No evidence of hemolysis or medication induced anemia. Probable causes are primary bone marrow disorder such as lymphoma, plasma cell dyscrasia and myelodysplastic syndrome. Hematological workup including serum protein electrophoresis and immunofixation were negative. Today I discussed performing bone marrow aspiration/biopsy for probable diagnosis of MDS. They will think about it and get back to me. CBC today is stable. Patient does not have any overt symptoms. Follow-up in 1-2 months. - Time Spent With Patient Time Spent with Patient (in minutes): 15
[2021-07-05 09:44] LABS: Hemoglobin 10.1 g/dl (14.0-18.0); Imm Gran Abs Auto 0.04 X10*3/uL (0.00-0.03); Imm Gran Pct Auto 0.6 % (0.0-0.4); MANUAL DIFF FLAG SCAN; SCAN SMEAR FLAG 1
[2021-07-05 09:46] LABS: Basophils Percent Auto 0.5 % (0-2); Eosinophils Absolute Auto 0.1 X10*3/uL (0.0-0.4); Eosinophils Percent Auto 1.4 % (0-4); Hematocrit 30.9 % (42-52); Immature Retic Fraction 17.9 % (2.3-13.4); Lymphocytes Absolute Auto 0.9 X10*3/uL (1.2-4.9); Lymphocytes Percent Auto 13.8 % (20-40); Mean Corpuscular HGB Conc 32.7 g/dl (31.0-36.0); Mean Corpuscular Hemoglobin 33.8 pg (27.0-33.0); Mean Corpuscular Volume 103.3 fL (80-98); Mean Platelet Volume 10.4 fL (9.4-12.4); Monocytes Absolute Auto 0.6 X10*3/uL (0.1-1.2); Monocytes Percent Auto 9.4 % (2-11); NRBC Pct Auto 0.8 /100WBC (0.0-0.2); Neutrophils Absolute Auto 4.9 X10*3/uL (2.0-8.3); Neutrophils Percent Auto 74.3 % (45-73); Platelet Count 184 X10*3/uL (160-400); Red Blood Count 2.99 X10*6/uL (4.60-5.80); Red Cell Distribution Width 14.9 % (11.0-16.0); Retic HGB Equivalent 35.8 pg (30.0-35.0); Reticulocyte Percent 1.5 % (0.5-1.8); Reticulocytes Absolute 0.045 X10*6/uL (0.026-0.095); White Blood Count 6.6 X10*3/uL (4.8-10.8)
[2021-07-05 09:53] LABS: Blood Urea Nitrogen 22 mg/dL (9-16); Creatinine Clr Calc Pharmacy 43.2; Estimated Glomerular Filt Rate 53
[2021-07-05 10:12] LABS: SLIDE REVIEW VERIFIED
--- NOTE | 2021-07-05 14:27 | MHC.HEMONCMA ---
Patient came in for a follow up today, states that he is doing okay. Clinical summary was reviewed and updated. Patient had labs and will return in 1-2 months for a follow up.
[2021-07-06 11:12] LABS: Erythropoietin (EPO) 42.1 mIU/mL (2.6-18.5)
[2021-09-06 08:47] VITALS: BP 139/76; PULSE 58; RESP 16; TEMP 36.8; O2SAT 98; BMI 26.6
--- NOTE | 2021-09-06 08:49 | PM.HEMONCPN ---
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 No hematinic deficiencies. Mild renal insufficiency with a creatinine of 1.29 mg/dL. Interval History Interval history: Patient is here in follow-up, he is accompanied by his and son today. He is doing about the same, he has been started on antianxiety medication because of his extreme jumpiness. He was seen by Neurology. They here to discuss further evaluation of his anemia. Review of Systems - Constitutional Reports as per HPI, Reports no additional constitutional complaints - Cardiovascular Reports no additional cardiovascular complaints - Respiratory Reports no additional respiratory complaints - Gastrointestinal Reports no additional gastrointestinal complaints [facility] Medical History: Medical History (Last Reviewed 09/06/21 @ 08:52 by Clau Nunez) Anemia Atherosclerotic cardiovascular disease Benign prostatic hyperplasia Cervical spondylosis with radiculopathy Chronic fatigue and malaise Depression Hearing loss Left hydrocele Macrocytic anemia Mild valvular heart disease Myoclonic jerking Persistent atrial fibrillation Right rotator cuff tear Shoulder pain, left Family History: Family History (Last Reviewed 09/06/21 @ 08:53 by Clau Nunez) Father CVD (cardiovascular disease) Mother No problems noted. Surgical History: Surgical History (Last Reviewed 09/06/21 @ 08:52 by Clau Nunez) History of fusion of cervical spine History of heart artery stent Social History: Social History (Last Reviewed 09/06/21 @ 08:53 by Clau Nunez) Living Situation History: Household Members: Spouse Housing: House Alcohol History: Alcohol intake: current Alcohol History Details: Alcohol intake frequency: a few times a month Alcohol type: beer Tobacco History: Patient Tobacco Use Status: Former Tobacco user Tobacco use type: Cigarette Cigarette Packs Per Day: 0.5 Years Smoked: 1 e-Cigarette/Vaping Use: Never Used Second Hand Smoke Exposure: No Substance Use History: Use of substances other than those prescribed or required for medical reasons: No Occupation Assessmet: Current occupational status: retired Oncology Screenings - ECOG Performance Status ECOG Performance Status: 2 Home Medications and Allergies Home Medications Medication Instructions Recorded Confirmed Type terazosin 1 mg capsule 2 mg PO BEDTIME cap 01/07/21 09/06/21 History acetaminophen 650 mg 650 mg PO Q12H 02/22/21 09/06/21 History tablet,extended release (Arthritis Pain Reliever) cholecalciferol (vitamin D3) 125 125 mcg PO DAILY 05/18/21 09/06/21 History mcg (5,000 unit) capsule clonazepam 0.5 mg tablet 0.5 mg PO BID 09/06/21 09/06/21 History Allergies Allergy/AdvReac Type Severity Reaction Status Date / Time No Known Allergies Allergy Verified 09/06/21 08:53 [No Known Allergies*] Exam Vital signs: Vital Signs Temp 97.0 F 07/05/21 08:52 Pulse 68 07/05/21 08:52 Resp 14 07/05/21 08:52 BP 137/66 07/05/21 08:52 Pulse Ox 99 07/05/21 08:52 Weight 81.6 kg BMI result Body Mass Index 25.8 - Constitutional Present: no acute distress - Routine HEENT Exam Head: Present: normal inspection - Routine Respiratory Exam Present: CTAB. Absent: accessory muscle use - Routine Cardiovascular Exam Cardiovascular: Present: RRR, S1, S2 - Routine Extremities Exam Absent: calf tenderness - Routine Skin Exam Present: intact. Absent: cyanosis Data - Labs CBC & Chem 7: 09/06/21 09:32 07/05/21 09:28 Assessment and Plan Patient Active problem list reviewed?: Yes (1) Anemia Status: Chronic Assessment and plan: 1. This is a 86-year-old male with worsening macrocytic anemia. He has no hematinic deficiencies. No known chronic kidney or liver disease. No evidence of hemolysis or medication induced anemia. Probable causes are primary bone marrow disorder such as lymphoma, plasma cell dyscrasia and myelodysplastic syndrome. Hematological workup including serum protein electrophoresis and immunofixation were negative. Today I discussed performing bone marrow aspiration/biopsy for probable diagnosis of MDS. His son and have made the decision to proceed with diagnostic bone marrow aspiration/biopsy as long as it is under monitored anesthesia as he is extremely jumpy and cannot lie still. Patient himself agreed to proceed as well. I have spoken to his clinical material handler who has said that he can go ahead with monitored anesthesia. This will be set up in the following days. CBC today is stable. Follow-up in 1 month. - Time Spent With Patient Time Spent with Patient (in minutes): 15
[2021-09-06 09:37] LABS: MANUAL DIFF FLAG NO
[2021-09-06 09:43] LABS: Basophils Percent Auto 0.5 % (0-2); Eosinophils Absolute Auto 0.1 X10*3/uL (0.0-0.4); Eosinophils Percent Auto 0.7 % (0-4); Hemoglobin 10.4 g/dl (14.0-18.0); Imm Gran Abs Auto 0.05 X10*3/uL (0.00-0.03); Imm Gran Pct Auto 0.7 % (0.0-0.4); Lymphocytes Absolute Auto 1.1 X10*3/uL (1.2-4.9); Lymphocytes Percent Auto 14.2 % (20-40); Mean Corpuscular HGB Conc 32.5 g/dl (31.0-36.0); Mean Corpuscular Hemoglobin 33.5 pg (27.0-33.0); Mean Corpuscular Volume 103.2 fL (80.0-98.0); Mean Platelet Volume 9.9 fL (9.4-12.4); Monocytes Absolute Auto 0.6 X10*3/uL (0.1-1.2); Monocytes Percent Auto 8.3 % (2-11); NRBC Pct Auto 0.9 /100WBC (0.0-0.2); Neutrophils Absolute Auto 5.8 x10*3/uL (2.0-8.3); Neutrophils Percent Auto 75.6 % (45-73); Platelet Count 198 X10*3/uL (160-400); Red Cell Distribution Width 15.6 % (11.0-16.0); White Blood Count 7.6 X10*3/uL (4.8-10.8)
--- NOTE | 2021-09-06 13:15 | MHC.HEMONCMA ---
Patient came in for a follow up today, he comes with his and son. He states that he is not doing any better. His did state that he did see a neurologist on Monday and that they started him on a 1/2 tab of 0.5mg of Clonazepam to see if that helps. Clinical summary was reviewed and updated. Patient had labs and will return for a follow up after his bone marrow biopsy. Dr Adan if off until after , so that is when the bone marrow biopsy will be scheduled.
--- NOTE | 2021-10-05 09:08 | MHC.HEMONCMA ---
Spoke with patient's , I let her know that I have scheduled her 's bone marrow biopsy in the OR on 10/11/2021 at 2pm. I let her know that we will reschedule his appt from Monday to some time next week. I let her know that a nurse from will be calling to go over everything the night before, so most likley Monday to let them know when he needs to stop eating and such. He will need to stop his Xeralto- Per Dr Adan he can NOT take it Monday, Monday AND Monday, his is aware. All questions and concerns were answered. She will await the nurses from 's call.
--- NOTE | 2021-11-05 09:01 | MHC.HEMONC ---
Pt re-booked for BMB in OR by Dr Adan on 11/12 at 8:30. I called pt and his understands no blood thinning agents (must hold XARELTO on 11/10 and 11/11. He will be NPO after midnight. He will have driver salesman. Waleska blocked Dr Adan's schedule and I will have her write order next Monday.
[2021-11-29 14:52] LABS: MANUAL DIFF FLAG NO
[2021-11-29 15:06] VITALS: BP 157/76; PULSE 82; RESP 20; TEMP 36.9; O2SAT 99; BMI 26.4
[2021-11-29 15:13] LABS: Basophils Percent Auto 0.8 % (0-2); Eosinophils Absolute Auto 0.1 X10*3/uL (0.0-0.4); Eosinophils Percent Auto 1.2 % (0-4); Hematocrit 31.4 % (42.0-52.0); Hemoglobin 10.2 g/dl (14.0-18.0); Imm Gran Abs Auto 0.02 X10*3/uL (0.00-0.03); Imm Gran Pct Auto 0.4 % (0.0-0.4); Lymphocytes Absolute Auto 0.9 X10*3/uL (1.2-4.9); Lymphocytes Percent Auto 17.8 % (20-40); Mean Corpuscular HGB Conc 32.5 g/dl (31.0-36.0); Mean Corpuscular Hemoglobin 33.4 pg (27.0-33.0); Mean Platelet Volume 9.9 fL (9.4-12.4); Monocytes Absolute Auto 0.5 X10*3/uL (0.1-1.2); Monocytes Percent Auto 10.4 % (2-11); NRBC Pct Auto 0.8 /100WBC (0.0-0.2); Neutrophils Absolute Auto 3.6 x10*3/uL (2.0-8.3); Neutrophils Percent Auto 69.4 % (45-73); Platelet Count 206 X10*3/uL (160-400); Red Blood Count 3.05 X10*6/uL (4.60-5.80); Red Cell Distribution Width 16.2 % (11.0-16.0); White Blood Count 5.2 X10*3/uL (4.8-10.8)
--- NOTE | 2021-11-29 17:05 | MHC.HEMONC ---
Patient present for follow up with Dr Adan. His two children were present. Vital signs done and medications reviewed. Dr Adan in to see the patient. Discharge packet provided. Patient departed the unit. Follow up scheduled for 03/01/22 and blood transfusion scheduled for 12/03/21.
--- NOTE | 2021-11-29 17:18 | P.PNHO_ITS ---
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 No hematinic deficiencies. Mild renal insufficiency with a creatinine of 1.29 mg/dL. Interval History Interval history: Patient is here in follow-up, he is accompanied by his and son today. ey are here to discuss results of bone marrow biopsy. His main complaint is that he feels extremely tired and is sleeping most of the time. Review of Systems - Constitutional Reports as per HPI, Reports no additional constitutional complaints, Reports fatigue, Reports lack of energy, Reports malaise [facility] Medical History: Medical History (Last Reviewed 11/12/21 @ 08:14 by Wendy Mckeon RN) Anemia Atherosclerotic cardiovascular disease Benign prostatic hyperplasia Cervical spondylosis with radiculopathy Chronic fatigue and malaise Depression Hearing loss Left hydrocele Macrocytic anemia Mild valvular heart disease Myoclonic jerking Persistent atrial fibrillation Right rotator cuff tear Shoulder pain, left Family History: Family History (Last Reviewed 10/04/21 @ 02:58 by Ambika Tsang MD) Father CVD (cardiovascular disease) Mother No problems noted. Surgical History: Surgical History (Last Reviewed 11/12/21 @ 08:10 by Wendy Mckeon RN) History of fusion of cervical spine History of heart artery stent Social History: Social History (Last Reviewed 10/04/21 @ 02:58 by Ambika Tsang MD) Living Situation History: Household Members: Spouse Housing: House Tobacco History: Patient Tobacco Use Status: Former Tobacco user Tobacco use type: Cigarette Cigarette Packs Per Day: 0.5 Years Smoked: 1 e-Cigarette/Vaping Use: Never Used Second Hand Smoke Exposure: No Substance Use History: Use of substances other than those prescribed or required for medical reasons : No Occupation Assessmet: Current occupational status: retired Home Medications and Allergies Home Medications Medication Instructions Recorded Confirmed Type acetaminophen 650 mg 650 mg PO Q12H 02/22/21 11/29/21 History tablet,extended release (Arthritis Pain Reliever) carbamazepine 100 mg PO DAILY 11/29/21 11/29/21 History Allergies Allergy/AdvReac Type Severity Reaction Status Date / Time No Known Allergies Allergy Verified 10/04/21 02:56 [No Known Allergies*] Exam Vital signs: Vital Signs Temp 98.4 F 11/29/21 15:06 Pulse 82 11/29/21 15:06 Resp 20 11/29/21 15:06 BP 157/76 H 11/29/21 15:06 Pulse Ox 99 11/29/21 15:06 Intake & Output 11/28/21 11/29/21 11/29/21 18:59 06:59 18:59 Other: Weight 83.6 kg [place] Weight in Grams 18896 Weight 83.6 kg BMI result Body Mass Index 26.4 - Constitutional Present: no acute distress - Routine HEENT Exam Head: Present: normal inspection - Routine Respiratory Exam Present: CTAB. Absent: accessory muscle use - Routine Cardiovascular Exam Cardiovascular: Present: RRR, S1, S2 - Routine Extremities Exam Absent: calf tenderness - Routine Skin Exam Present: intact. Absent: cyanosis Data - Labs CBC & Chem 7: 11/29/21 14:51 07/05/21 09:28 Assessment and Plan Patient Active problem list reviewed?: Yes (1) Anemia Status: Resolved Assessment and plan: 1. This is a 86-year-old male with worsening macrocytic anemia. He has no hematinic deficiencies. No known chronic kidney or liver disease. No evidence of hemolysis or medication induced anemia. diagnostic bone marrow aspiration / biopsy performed 11/12/2021 showed hypercellular, erythroid dominant marrow with maturing trilineage hematopoiesis. Negative for blasts or infiltrative process. Increased iron stores. Flow cytometry showed no increase in CD 34 positive events and no aberrant antigen expression. 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 FISH MDS panel showed no abnormalities. Above results explained to patient and family. His CBC appears to be stable with a hemoglobin of around 10 gram/dL. Family is very concerned about his symptoms of extreme fatigue and daytime sleepiness. They would like to see if improving his hemoglobin would make his symptoms better. I am arranging 1 unit blood transfusion. This will be set up in the following days. Follow-up in 1 month. - Time Spent With Patient Time Spent with Patient (in minutes): 15
[2021-12-03 09:32] VITALS: BP 162/90; PULSE 78; RESP 19; TEMP 36.1; O2SAT 96; BMI 26.1
[2021-12-03 10:39] VITALS: BP 162/90; PULSE 78; RESP 18; TEMP 36.1
[2021-12-03 10:57] VITALS: BP 119/60; PULSE 67; RESP 18; TEMP 36.6
[2021-12-03 12:14] VITALS: BP 135/93; PULSE 76; RESP 18; TEMP 36.6
--- NOTE | 2021-12-03 14:34 | MHC.HEMONC ---
Pt here for Blood transfusion ONE unit. H & H 10.2/31.4/platelets 206. Pt is fatigued and dyspneic on exertion. Consent for blood transfusion obtained. #20 angio inserted in right hand-blood return noted. Vital signs stable, breath sounds clear. ONE unit RBC's infused without apparent reaction. Vital signs remain stable with clear breath sounds. Peripheral IV removed-no edema or redness at site. Discharge packet given with follow up appointment.
[2022-01-12 10:40] VITALS: BP 141/63; PULSE 70; RESP 16; TEMP 36.4; O2SAT 99; BMI 26.4
--- NOTE | 2022-01-12 10:50 | PM.HEMONCPN ---
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 No hematinic deficiencies. Mild renal insufficiency with a creatinine of 1.29 mg/dL. Interval History Interval history: Patient is here in follow-up. They are here to discuss results of bone marrow biopsy. He felt better after blood transfusion a few weeks ago. He denies any chest pain or shortness of breath. He is accompanied by his today. [facility] Medical History: Medical History (Last Reviewed 01/12/22 @ 10:43 by Tammie Hill CMA) Anemia Atherosclerotic cardiovascular disease Benign prostatic hyperplasia Cervical spondylosis with radiculopathy Chronic fatigue and malaise Depression Hearing loss Left hydrocele Macrocytic anemia Mild valvular heart disease Myoclonic jerking Persistent atrial fibrillation Right rotator cuff tear Shoulder pain, left Family History: Family History (Last Reviewed 01/12/22 @ 10:44 by Tammie Hill CMA) Father CVD (cardiovascular disease) Mother No problems noted. Surgical History: Surgical History (Last Updated 01/12/22 @ 10:44 by Tammie Hill CMA) History of bone marrow biopsy History of fusion of cervical spine History of heart artery stent Social History: Social History (Last Updated 01/12/22 @ 10:46 by Tammie Hill CMA) Living Situation History: Household Members: Spouse Housing: House Are you a primary adult live in caregiver to a significant other at home: No Do you presently have visiting nurse or other home services: No Alcohol History Details: 1. How often do you have a drink containing alcohol?: a. Never Tobacco History: Patient Tobacco Use Status: Former Tobacco user Tobacco use type: Cigarette Cigarette Packs Per Day: 0.5 Years Smoked: 1 e-Cigarette/Vaping Use: Never Used Second Hand Smoke Exposure: No Substance Use History: Use of substances other than those prescribed or required for medical reasons: No Domestic Abuse History: Have you been hit, kicked, punched, or otherwise hurt by someone within the past year? If so, by whom?: No Do you feel safe in your current relationship?: Yes Homicidal Assessment: Do you have thoughts of harming others: None Do you have a plan to hurt others: No Plan Do you have the means to hurt others: No Nutrition Assessment: Recently lost weight without trying: No Occupation Assessmet: service: No Current occupational status: retired Home Medications and Allergies Home Medications Medication Instructions Recorded Confirmed Type acetaminophen 650 mg 650 mg PO Q12H 02/22/21 01/12/22 History tablet,extended release (Arthritis Pain Reliever) carbamazepine 100 mg PO DAILY 11/29/21 01/12/22 History rivaroxaban 20 mg tablet (Xarelto) 20 mg PO BEDTIME 01/12/22 01/12/22 History Allergies Allergy/AdvReac Type Severity Reaction Status Date / Time No Known Allergies Allergy Verified 01/12/22 10:46 [No Known Allergies*] Exam Vital signs: Vital Signs Temp 97.5 F 01/12/22 10:40 Pulse 70 01/12/22 10:40 Resp 16 01/12/22 10:40 BP 141/63 H 01/12/22 10:40 Pulse Ox 99 01/12/22 10:40 Intake & Output 01/11/22 01/12/22 01/12/22 18:59 06:59 18:59 Other: Weight 83.5 kg [place] Weight in Grams 11791 Weight 83.5 kg BMI result Body Mass Index 26.4 - Constitutional Present: no acute distress - Routine HEENT Exam Head: Present: normal inspection - Routine Respiratory Exam Present: CTAB. Absent: accessory muscle use - Routine Cardiovascular Exam Cardiovascular: Present: RRR, S1, S2 - Routine Extremities Exam Absent: calf tenderness - Routine Skin Exam Present: intact. Absent: cyanosis Data - Labs CBC & Chem 7: 01/12/22 11:32 07/05/21 09:28 Assessment and Plan Patient Active problem list reviewed?: Yes (1) Anemia Status: Resolved Assessment and plan: 1. This is a 86-year-old male with worsening macrocytic anemia. He has no hematinic deficiencies. No evidence of hemolysis or medication induced anemia. Diagnostic bone marrow aspiration / biopsy performed 11/12/2021 showed hypercellular, erythroid dominant marrow with maturing trilineage hematopoiesis. Negative for blasts or infiltrative process. Increased iron stores. Flow cytometry showed no increase in CD 34 positive events and no aberrant antigen expression. 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 FISH MDS panel showed no abnormalities. His blood counts are stable. Haptoglobin level is pending. Rule out hemolysis. Consider JACQUELINE therapy as he has mild chronic kidney disease as well. Follow-up in 6 weeks. - Time Spent With Patient Time Spent with Patient (in minutes): 15
[2022-01-12 11:42] LABS: Hematocrit 30.3 % (42.0-52.0); Hemoglobin 10.1 g/dl (14.0-18.0); Immature Retic Fraction 22.6 % (2.3-13.4); Mean Corpuscular HGB Conc 33.3 g/dl (31.0-36.0); Mean Platelet Volume 10.2 fL (9.4-12.4); NRBC Pct Auto 0.8 /100WBC (0.0-0.2); Platelet Count 186 X10*3/uL (160-400); Red Blood Count 2.97 X10*6/uL (4.60-5.80); Red Cell Distribution Width 16.5 % (11.0-16.0); Reticulocyte Percent 1.9 % (0.5-1.8); Reticulocytes Absolute 0.056 X10*6/uL (0.026-0.095); White Blood Count 4.9 X10*3/uL (4.8-10.8)
--- NOTE | 2022-01-12 15:55 | MHC.HEMONCMA ---
Pt was in for follow up. Clinical summary reviewed and updated, VSS. Labs were drawn. Pt to return in 2 months.
[2022-01-13 14:36] LABS: Haptoglobin 94 mg/dL (43-212)
[2022-01-15 18:11] LABS: Copper RBC 0.48 mg/L (0.53-0.91)
--- NOTE | 2022-03-14 09:58 | PM.HEMONCPN ---
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 No hematinic deficiencies. Mild renal insufficiency with a creatinine of 1.29 mg/dL. Interval History Interval history: Patient is here in follow-up. He is doing about the same. He reports fatigue but no significant chest pain, dizziness or palpitations. Review of Systems - Constitutional Reports as per HPI, Reports no additional constitutional complaints - Cardiovascular Reports no additional cardiovascular complaints - Respiratory Reports no additional respiratory complaints [facility] Medical History: Medical History (Last Reviewed 01/12/22 @ 10:43 by Tammie Hill CMA) Anemia Atherosclerotic cardiovascular disease Benign prostatic hyperplasia Cervical spondylosis with radiculopathy Chronic fatigue and malaise Depression Hearing loss Left hydrocele Macrocytic anemia Mild valvular heart disease Myoclonic jerking Persistent atrial fibrillation Right rotator cuff tear Shoulder pain, left Family History: Family History (Last Reviewed 01/12/22 @ 10:44 by Tammie Hill CMA) Father CVD (cardiovascular disease) Mother No problems noted. Surgical History: Surgical History (Last Updated 01/12/22 @ 10:44 by Tammie Hill CMA) History of bone marrow biopsy History of fusion of cervical spine History of heart artery stent Social History: Social History (Last Updated 01/12/22 @ 10:46 by Tammie Hill CMA) Living Situation History: Household Members: Spouse Housing: House Are you a primary career information specialist to a significant other at home: No Do you presently have visiting nurse or other home services: No Alcohol History Details: 1. How often do you have a drink containing alcohol?: a. Never Tobacco History: Patient Tobacco Use Status: Former Tobacco user Tobacco use type: Cigarette Cigarette Packs Per Day: 0.5 Years Smoked: 1 e-Cigarette/Vaping Use: Never Used Second Hand Smoke Exposure: No Substance Use History: Use of substances other than those prescribed or required for medical reasons: No Domestic Abuse History: Have you been hit, kicked, punched, or otherwise hurt by someone within the past year? If so, by whom?: No Do you feel safe in your current relationship?: Yes Homicidal Assessment: Do you have thoughts of harming others: None Do you have a plan to hurt others: No Plan Do you have the means to hurt others: No Nutrition Assessment: Recently lost weight without trying: No Occupation Assessmet: service: No Current occupational status: retired Oncology Screenings - ECOG Performance Status ECOG Performance Status: 2 Home Medications and Allergies Home Medications Medication Instructions Recorded Confirmed Type acetaminophen 650 mg 650 mg PO Q12H 02/22/21 03/14/22 History tablet,extended release (Arthritis Pain Reliever) rivaroxaban 20 mg tablet (Xarelto) 20 mg PO BEDTIME 01/12/22 03/14/22 History Allergies Allergy/AdvReac Type Severity Reaction Status Date / Time No Known Allergies Allergy Verified 01/12/22 10:46 [No Known Allergies*] Exam Vital signs: Vital Signs Temp 97.5 F 01/12/22 10:40 Pulse 70 01/12/22 10:40 Resp 16 01/12/22 10:40 BP 141/63 H 01/12/22 10:40 Pulse Ox 99 01/12/22 10:40 O2 Del Method 01/12/22 10:40 Weight 83.5 kg BMI result Body Mass Index 26.4 - Constitutional Present: no acute distress - Routine HEENT Exam Head: Present: normal inspection - Routine Respiratory Exam Present: CTAB. Absent: accessory muscle use - Routine Cardiovascular Exam Cardiovascular: Present: RRR, S1, S2 - Routine Extremities Exam Absent: calf tenderness - Routine Skin Exam Present: intact. Absent: cyanosis Data - Labs CBC & Chem 7: 03/14/22 10:51 03/14/22 10:51 Assessment and Plan Patient Active problem list reviewed?: Yes (1) Anemia Status: Resolved Assessment and plan: 1. This is a 86-year-old male with worsening macrocytic anemia. He has no hematinic deficiencies. No evidence of hemolysis or medication induced anemia. Diagnostic bone marrow aspiration / biopsy performed 11/12/2021 showed hypercellular, erythroid dominant marrow with maturing trilineage hematopoiesis. Negative for blasts or infiltrative process. Increased iron stores. Flow cytometry showed no increase in CD 34 positive events and no aberrant antigen expression. 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 FISH MDS panel showed no abnormalities. Haptoglobin level was normal. No evidence of hemolysis. He has some worsening of his anemia. He probably has myelodysplastic syndrome. He will be started on JACQUELINE therapy with Procrit. Follow-up in 6 weeks. - Time Spent With Patient Time Spent with Patient (in minutes): 15
[2022-03-14 09:59] VITALS: BMI 25.2
[2022-03-14 10:06] VITALS: BP 167/71; PULSE 59; RESP 18; TEMP 36.1; O2SAT 100
--- NOTE | 2022-03-14 10:16 | HO.HEMONCPA ---
NO PA REQUIRED FOR PROCRIT. DRUGS COVERED UNDER MEDICAL BENEFITS(MEDICARE PART B)
--- NOTE | 2022-03-14 10:56 | MHC.HEMONC ---
Pt unsteady with his gait. Uses cane, He has been able to work in yard. His labs were drawn and pending. He will return for Procrit if eligible per [facility].
[2022-03-14 11:09] LABS: MANUAL DIFF FLAG NO
[2022-03-14 11:17] LABS: Basophils Percent Auto 0.7 % (0-2); Eosinophils Absolute Auto 0.1 X10*3/uL (0.0-0.4); Eosinophils Percent Auto 1.4 % (0-4); Hemoglobin 9.5 g/dl (14.0-18.0); Imm Gran Abs Auto 0.02 X10*3/uL (0.00-0.03); Imm Gran Pct Auto 0.4 % (0.0-0.4); Lymphocytes Absolute Auto 1.2 X10*3/uL (1.2-4.9); Lymphocytes Percent Auto 21.2 % (20-40); Mean Corpuscular HGB Conc 32.8 g/dl (31.0-36.0); Mean Corpuscular Hemoglobin 33.9 pg (27.0-33.0); Mean Corpuscular Volume 103.6 fL (80.0-98.0); Mean Platelet Volume 10.5 fL (9.4-12.4); Monocytes Absolute Auto 0.5 X10*3/uL (0.1-1.2); Monocytes Percent Auto 9.1 % (2-11); NRBC Pct Auto 0.7 /100WBC (0.0-0.2); Neutrophils Absolute Auto 3.8 x10*3/uL (2.0-8.3); Neutrophils Percent Auto 67.2 % (45-73); Platelet Count 192 X10*3/uL (160-400); Red Cell Distribution Width 15.7 % (11.0-16.0); White Blood Count 5.7 X10*3/uL (4.8-10.8)
[2022-03-14 11:28] LABS: Alanine Aminotransferase 18 U/L (0-40); Albumin Level 4.1 g/dL (3.5-5.0); Alkaline Phosphatase 38 U/L (39-117); Anion Gap 10 (12-20); Aspartate Amino Transferase 18 U/L (5-37); Bilirubin Total 1.1 mg/dL (0.0-1.0); Blood Urea Nitrogen 21 mg/dL (9-16); Carbon Dioxide 24 mmol/L (22-29); Chloride 106 mmol/L (96-108); Estimated Glomerular Filt Rate 60; Glucose Random 109 mg/dL (60-115); Iron 125 mcg/dL (45-160); Percent Iron Saturation 52 % (15-50); Potassium 4.8 mmol/L (3.3-5.1); Sodium 135 mmol/L (135-145); Total Iron Binding Capacity 242 mcg/dL (228-428); Total Protein 6.2 g/dL (6.5-8.0); Unsaturated Iron Binding 117 ug/dL
[2022-03-16 09:09] VITALS: BP 139/61; PULSE 66; RESP 18; TEMP 36.3; O2SAT 99
--- NOTE | 2022-03-16 09:16 | MHC.HEMONC ---
Hgb 9.5- Order for Procrit 20,000 units administered to left upper arm. VSS. Patient accompanied by . Well tolerated. Patient to return in 2 weeks for labs and Procrit.
[2022-03-30 08:55] LABS: MANUAL DIFF FLAG NO
[2022-03-30 08:59] LABS: Basophils Percent Auto 0.3 % (0-2); Eosinophils Absolute Auto 0.1 X10*3/uL (0.0-0.4); Eosinophils Percent Auto 0.5 % (0-4); Hematocrit 30.8 % (42.0-52.0); Hemoglobin 9.9 g/dl (14.0-18.0); Imm Gran Abs Auto 0.04 X10*3/uL (0.00-0.03); Imm Gran Pct Auto 0.4 % (0.0-0.4); Lymphocytes Absolute Auto 0.8 X10*3/uL (1.2-4.9); Lymphocytes Percent Auto 8.7 % (20-40); Mean Corpuscular HGB Conc 32.1 g/dl (31.0-36.0); Mean Corpuscular Hemoglobin 33.2 pg (27.0-33.0); Mean Corpuscular Volume 103.4 fL (80.0-98.0); Mean Platelet Volume 9.9 fL (9.4-12.4); Monocytes Absolute Auto 0.9 X10*3/uL (0.1-1.2); Monocytes Percent Auto 9.7 % (2-11); NRBC Pct Auto 0.4 /100WBC (0.0-0.2); Neutrophils Absolute Auto 7.6 x10*3/uL (2.0-8.3); Neutrophils Percent Auto 80.4 % (45-73); Platelet Count 171 X10*3/uL (160-400); Red Blood Count 2.98 X10*6/uL (4.60-5.80); Red Cell Distribution Width 15.9 % (11.0-16.0); White Blood Count 9.4 X10*3/uL (4.8-10.8)
[2022-03-30 09:12] VITALS: BP 129/67; PULSE 72
--- NOTE | 2022-03-30 09:27 | MHC.HEMONC ---
pt report pt c/o achiness 2 days after first procrit. 20,000unit ordered today for hgb 9.9. pcp also holding cholesterol med for this reason, f/u with pcp in 3mo
[2022-04-13 09:45] LABS: Hematocrit 29.4 % (42.0-52.0); Hemoglobin 9.7 g/dl (14.0-18.0); Mean Corpuscular Hemoglobin 32.9 pg (27.0-33.0); Mean Corpuscular Volume 99.7 fL (80.0-98.0); Mean Platelet Volume 10.5 fL (9.4-12.4); NRBC Pct Auto 0.7 /100WBC (0.0-0.2); Platelet Count 220 X10*3/uL (160-400); Red Blood Count 2.95 X10*6/uL (4.60-5.80); Red Cell Distribution Width 17.6 % (11.0-16.0); White Blood Count 5.4 X10*3/uL (4.8-10.8)
[2022-04-13 09:54] VITALS: BP 122/61; PULSE 50; RESP 20; TEMP 35.9
--- NOTE | 2022-04-13 10:11 | MHC.HEMONC ---
hgb 9.7 pt ok to receive 20,000unit procrit. feeling better. return in 2 week
--- NOTE | 2022-04-26 09:09 | HO.HEMONCSCH ---
Pt confirmed Procrit inj apt for 04/27/22
[2022-04-27 09:28] LABS: MANUAL DIFF FLAG NO
[2022-04-27 09:40] LABS: Basophils Percent Auto 0.5 % (0-2); Eosinophils Absolute Auto 0.2 X10*3/uL (0.0-0.4); Eosinophils Percent Auto 4.8 % (0-4); Hematocrit 29.4 % (42.0-52.0); Hemoglobin 9.6 g/dl (14.0-18.0); Imm Gran Abs Auto 0.02 X10*3/uL (0.00-0.03); Imm Gran Pct Auto 0.5 % (0.0-0.4); Lymphocytes Absolute Auto 0.9 X10*3/uL (1.2-4.9); Lymphocytes Percent Auto 23.3 % (20-40); Mean Corpuscular HGB Conc 32.7 g/dl (31.0-36.0); Mean Corpuscular Hemoglobin 32.8 pg (27.0-33.0); Mean Corpuscular Volume 100.3 fL (80.0-98.0); Mean Platelet Volume 9.8 fL (9.4-12.4); Monocytes Absolute Auto 0.5 X10*3/uL (0.1-1.2); Monocytes Percent Auto 12.7 % (2-11); NRBC Pct Auto 0.8 /100WBC (0.0-0.2); Neutrophils Absolute Auto 2.2 x10*3/uL (2.0-8.3); Neutrophils Percent Auto 58.2 % (45-73); Platelet Count 191 X10*3/uL (160-400); Red Blood Count 2.93 X10*6/uL (4.60-5.80); Red Cell Distribution Width 18.3 % (11.0-16.0); White Blood Count 3.8 X10*3/uL (4.8-10.8)
[2022-04-27 10:03] VITALS: BP 121/63; PULSE 67; RESP 17; O2SAT 99
[2022-04-27] MEDS: Epoetin Alfa 40,000 UNIT/ML VIAL 40000 UNIT SUBCUT (10:05)
--- NOTE | 2022-04-27 10:12 | MHC.HEMONC ---
Pt here for Procrit injection. Labs reviewed. HGB 9.6. Procrit given right arm SubQ. Calendar given. Next appointment 05/16/22. Pt offered no complaints.
[2022-05-16 09:17] VITALS: BP 171/75; PULSE 74; RESP 16; TEMP 36.4; O2SAT 98; BMI 24.2
[2022-05-16 09:52] LABS: MANUAL DIFF FLAG NO
[2022-05-16 10:06] LABS: Basophils Absolute Auto 0.1 X10*3/uL (0.0-0.2); Basophils Percent Auto 1.1 % (0-2); Eosinophils Absolute Auto 0.1 X10*3/uL (0.0-0.4); Eosinophils Percent Auto 1.7 % (0-4); Hematocrit 31.5 % (42.0-52.0); Hemoglobin 10.4 g/dl (14.0-18.0); Imm Gran Abs Auto 0.02 X10*3/uL (0.00-0.03); Imm Gran Pct Auto 0.4 % (0.0-0.4); Lymphocytes Percent Auto 20.5 % (20-40); Mean Corpuscular Hemoglobin 33.3 pg (27.0-33.0); Mean Platelet Volume 10.2 fL (9.4-12.4); Monocytes Absolute Auto 0.5 X10*3/uL (0.1-1.2); Monocytes Percent Auto 9.9 % (2-11); Neutrophils Absolute Auto 3.1 x10*3/uL (2.0-8.3); Neutrophils Percent Auto 66.4 % (45-73); Platelet Count 205 X10*3/uL (160-400); Red Blood Count 3.12 X10*6/uL (4.60-5.80); Red Cell Distribution Width 18.7 % (11.0-16.0); White Blood Count 4.7 X10*3/uL (4.8-10.8)
--- NOTE | 2022-05-16 10:21 | PM.HEMONCPN ---
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 No hematinic deficiencies. Mild renal insufficiency with a creatinine of 1.29 mg/dL. Interval History Interval history: Patient is here in follow-up. His does report improvement in overall health. He is able to go out in the garden and is more active. Review of Systems - Constitutional Reports as per HPI, Reports no additional constitutional complaints - Cardiovascular Reports no additional cardiovascular complaints - Respiratory Reports no additional respiratory complaints [facility] Medical History: Medical History (Last Reviewed 05/16/22 @ 09:20 by Angela Orta) Atherosclerotic cardiovascular disease Benign prostatic hyperplasia Cervical spondylosis with radiculopathy Chronic fatigue and malaise Depression Hearing loss History of pneumonia Left hydrocele Macrocytic anemia Macrocytic anemia Mild valvular heart disease Myoclonic jerking Persistent atrial fibrillation Right rotator cuff tear Shoulder pain, left Family History: Family History (Last Reviewed 05/16/22 @ 09:20 by Angela Orta) Father CVD (cardiovascular disease) Mother No problems noted. Surgical History: Surgical History (Last Reviewed 05/16/22 @ 09:20 by Angela Orta) History of bone marrow biopsy History of fusion of cervical spine History of heart artery stent Social History: Social History (Last Reviewed 05/16/22 @ 09:21 by Angela Orta) Living Situation History: Household Members: Spouse Housing: House Are you a primary critical care specialist to a significant other at home: No Do you presently have visiting nurse or other home services: No Alcohol History Details: 1. How often do you have a drink containing alcohol?: a. Never Tobacco History: Patient Tobacco Use Status: Former Tobacco user Tobacco use type: Cigarette Cigarette Packs Per Day: 0.5 Years Smoked: 1 e-Cigarette/Vaping Use: Never Used Second Hand Smoke Exposure: No Substance Use History: Use of substances other than those prescribed or required for medical reasons: No Domestic Abuse History: Have you been hit, kicked, punched, or otherwise hurt by someone within the past year? If so, by whom?: No Do you feel safe in your current relationship?: Yes Homicidal Assessment: Do you have thoughts of harming others: None Do you have a plan to hurt others: No Plan Do you have the means to hurt others: No Nutrition Assessment: Recently lost weight without trying: No Occupation Assessmet: service: No Current occupational status: retired Oncology Screenings - ECOG Performance Status ECOG Performance Status: 1 Home Medications and Allergies Home Medications Medication Instructions Recorded Confirmed Type acetaminophen 650 mg 650 mg PO Q12H 02/22/21 05/16/22 History tablet,extended release (Arthritis Pain Reliever) rivaroxaban 20 mg tablet (Xarelto) 20 mg PO BEDTIME 01/12/22 05/16/22 History tramadol 50 mg tablet (Ultram) 50 mg PO BID PRN shoulder pain 05/16/22 05/16/22 History Allergies Allergy/AdvReac Type Severity Reaction Status Date / Time No Known Allergies Allergy Verified 04/09/22 03:49 [No Known Allergies*] Exam Vital signs: Vital Signs Temp 97.6 F 05/16/22 09:17 Pulse 74 05/16/22 09:17 Resp 16 05/16/22 09:17 BP 171/75 H 05/16/22 09:17 Pulse Ox 98 05/16/22 09:17 O2 Del Method 05/16/22 09:17 Intake & Output 05/15/22 05/16/22 05/16/22 18:59 06:59 18:59 Other: Weight 76.5 kg [place] Weight in Grams 26034 Weight 76.5 kg BMI result Body Mass Index 24.2 - Constitutional Present: no acute distress - Routine HEENT Exam Head: Present: normal inspection - Routine Respiratory Exam Present: CTAB. Absent: accessory muscle use - Routine Cardiovascular Exam Cardiovascular: Present: RRR, S1, S2 - Routine Extremities Exam Absent: calf tenderness - Routine Skin Exam Present: intact. Absent: cyanosis Data - Labs CBC & Chem 7: 05/16/22 09:51 03/14/22 10:51 Assessment and Plan Patient Active problem list reviewed?: Yes (1) Anemia Status: Deleted Assessment and plan: 1. 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 He has no hematinic deficiencies. No evidence of hemolysis or medication induced anemia. Diagnostic bone marrow aspiration / biopsy performed 11/12/2021 showed hypercellular, erythroid dominant marrow with maturing trilineage hematopoiesis. Negative for blasts or infiltrative process. Increased iron stores. Flow cytometry showed no increase in CD34 positive events and no aberrant antigen expression. 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 FISH MDS panel showed no abnormalities. Haptoglobin level was normal. No evidence of hemolysis. Anemia has improved. He is on JACQUELINE therapy with procrit. Follow-up in 6 weeks. - Time Spent With Patient Time Spent with Patient (in minutes): 15
--- NOTE | 2022-05-16 10:41 | MHC.HEMONC ---
Pt here for q 2 week procrit injection. Blood drawn by online content developer-specimen to lab H & H 10.4/31.[address] Adan notified. 20,000 units procrit SC given in right arm-tolerated well. Next appointment scheduled for 2 weeks. Calendar given
[2022-05-31 09:26] LABS: MANUAL DIFF FLAG NO
[2022-05-31 09:32] LABS: Basophils Percent Auto 0.8 % (0-2); Eosinophils Absolute Auto 0.2 X10*3/uL (0.0-0.4); Hematocrit 31.8 % (42.0-52.0); Hemoglobin 10.6 g/dl (14.0-18.0); Imm Gran Abs Auto 0.02 X10*3/uL (0.00-0.03); Imm Gran Pct Auto 0.4 % (0.0-0.4); Lymphocytes Absolute Auto 1.1 X10*3/uL (1.2-4.9); Mean Corpuscular HGB Conc 33.3 g/dl (31.0-36.0); Mean Corpuscular Hemoglobin 33.5 pg (27.0-33.0); Mean Corpuscular Volume 100.6 fL (80.0-98.0); Mean Platelet Volume 9.4 fL (9.4-12.4); Monocytes Absolute Auto 0.6 X10*3/uL (0.1-1.2); Monocytes Percent Auto 11.6 % (2-11); NRBC Pct Auto 0.6 /100WBC (0.0-0.2); Neutrophils Absolute Auto 3.1 x10*3/uL (2.0-8.3); Neutrophils Percent Auto 62.2 % (45-73); Platelet Count 193 X10*3/uL (160-400); Red Blood Count 3.16 X10*6/uL (4.60-5.80); Red Cell Distribution Width 18.6 % (11.0-16.0)
[2022-05-31 10:03] VITALS: BP 120/64; PULSE 57; RESP 17; TEMP 36.4; O2SAT 99
--- NOTE | 2022-05-31 16:25 | MHC.HEMONC ---
Pt was in for his Q2week procrit, accompanied by , nurse confirmed no PA needed under Medicare part B. Pt's VSS, labs drawn/reviewed, Hgb resulted at 10.6, Dr. Adan ordered 20,000 units SC. Nurse admin 20,000 units SC to pt's LUE, well-tolerated. Pt was given d/c packet and next inj was booked on 06/14/22.
[2022-06-14 09:35] LABS: MANUAL DIFF FLAG NO
[2022-06-14 09:41] LABS: Basophils Percent Auto 0.9 % (0-2); Eosinophils Absolute Auto 0.1 X10*3/uL (0.0-0.4); Eosinophils Percent Auto 2.1 % (0-4); Hemoglobin 10.3 g/dl (14.0-18.0); Imm Gran Abs Auto 0.02 X10*3/uL (0.00-0.03); Imm Gran Pct Auto 0.5 % (0.0-0.4); Lymphocytes Percent Auto 23.1 % (20-40); Mean Corpuscular HGB Conc 33.2 g/dl (31.0-36.0); Mean Corpuscular Hemoglobin 33.8 pg (27.0-33.0); Mean Corpuscular Volume 101.6 fL (80.0-98.0); Mean Platelet Volume 10.4 fL (9.4-12.4); Monocytes Absolute Auto 0.5 X10*3/uL (0.1-1.2); NRBC Pct Auto 0.7 /100WBC (0.0-0.2); Neutrophils Absolute Auto 2.7 x10*3/uL (2.0-8.3); Neutrophils Percent Auto 62.4 % (45-73); Platelet Count 189 X10*3/uL (160-400); Red Blood Count 3.05 X10*6/uL (4.60-5.80); Red Cell Distribution Width 18.2 % (11.0-16.0); White Blood Count 4.4 X10*3/uL (4.8-10.8)
[2022-06-14 09:56] VITALS: BP 123/65; PULSE 55; RESP 20
[2022-06-14] MEDS: Epoetin Alfa 40,000 UNIT/ML VIAL 40000 UNIT SUBCUT (10:00)
--- NOTE | 2022-06-14 10:05 | MHC.HEMONC ---
hgb 10.3 today procrit given per dr rashid next lab draw and procrit in 3 week
[2022-07-05 09:20] VITALS: BP 148/73; PULSE 61; RESP 15; TEMP 36.6; O2SAT 99; BMI 24.3
[2022-07-05 10:18] LABS: MANUAL DIFF FLAG NO
[2022-07-05 10:22] LABS: Basophils Percent Auto 0.7 % (0-2); Eosinophils Percent Auto 0.7 % (0-4); Hematocrit 30.7 % (42.0-52.0); Imm Gran Abs Auto 0.08 X10*3/uL (0.00-0.03); Imm Gran Pct Auto 1.4 % (0.0-0.4); Lymphocytes Absolute Auto 1.1 X10*3/uL (1.2-4.9); Lymphocytes Percent Auto 18.6 % (20-40); Mean Corpuscular HGB Conc 32.6 g/dl (31.0-36.0); Mean Corpuscular Hemoglobin 32.4 pg (27.0-33.0); Mean Corpuscular Volume 99.4 fL (80.0-98.0); Mean Platelet Volume 8.9 fL (9.4-12.4); Monocytes Absolute Auto 0.5 X10*3/uL (0.1-1.2); Monocytes Percent Auto 7.8 % (2-11); Neutrophils Absolute Auto 4.1 x10*3/uL (2.0-8.3); Neutrophils Percent Auto 70.8 % (45-73); Platelet Count 219 X10*3/uL (160-400); Red Blood Count 3.09 X10*6/uL (4.60-5.80); Red Cell Distribution Width 17.8 % (11.0-16.0); White Blood Count 5.8 X10*3/uL (4.8-10.8)
--- NOTE | 2022-07-05 10:51 | MHC.HEMONC ---
Hgb 10.0, procrit 20,000units sc given to left upper arm as ordered. Next injection scheduled for 3 weeks.
--- NOTE | 2022-07-05 11:04 | MHC.HEMONCMA ---
patient seen today for follow up anemia, VSS, Labs, follow up as scheduled.
--- NOTE | 2022-07-05 11:30 | P.PNHO-ONC_ITS ---
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 No hematinic deficiencies. Mild renal insufficiency with a creatinine of 1.29 mg/dL. Interval History Interval history: Patient is here in follow-up. He feels well. He is able to go out in the garden and is more active. He denies body aches, headache or chest pain. Review of Systems - Constitutional Reports as per HPI, Reports no additional constitutional complaints - Cardiovascular Reports no additional cardiovascular complaints - Respiratory Reports no additional respiratory complaints [facility] Medical History: Medical History (Last Reviewed 07/05/22 @ 09:23 by Angela Orta) Acquired hypogammaglobulinemia Atherosclerotic cardiovascular disease Benign prostatic hyperplasia Cervical spondylosis with radiculopathy Chronic fatigue and malaise Depression Hearing loss History of pneumonia Left hydrocele Macrocytic anemia Macrocytic anemia Mild valvular heart disease Myoclonic jerking Persistent atrial fibrillation Right rotator cuff tear Shoulder pain, left Family History: Family History (Last Reviewed 07/05/22 @ 09:23 by Angela Orta) Father CVD (cardiovascular disease) Mother No problems noted. Surgical History: Surgical History (Last Reviewed 07/05/22 @ 09:23 by Angela Orta) History of bone marrow biopsy History of fusion of cervical spine History of heart artery stent Social History: Social History (Last Reviewed 07/05/22 @ 09:23 by Angela Orta) Living Situation History: Household Members: Spouse Housing: House Are you a primary nurse behavioral health care to a significant other at home: No Do you presently have visiting nurse or other home services: No Alcohol History Details: 1. How often do you have a drink containing alcohol?: a. Never Tobacco History: Patient Tobacco Use Status: Former Tobacco user Tobacco use type: Cigarette Cigarette Packs Per Day: 0.5 Years Smoked: 1 e-Cigarette/Vaping Use: Never Used Second Hand Smoke Exposure: No Substance Use History: Use of substances other than those prescribed or required for medical reasons : No Domestic Abuse History: Have you been hit, kicked, punched, or otherwise hurt by someone within the past year? If so, by whom?: No Do you feel safe in your current relationship?: Yes Homicidal Assessment: Do you have thoughts of harming others: None Do you have a plan to hurt others: No Plan Do you have the means to hurt others: No Nutrition Assessment: Recently lost weight without trying: No Occupation Assessmet: service: No Current occupational status: retired Home Medications and Allergies Home Medications Medication Instructions Recorded Confirmed Type acetaminophen 650 mg 650 mg PO Q12H 02/22/21 07/05/22 History tablet,extended release (Arthritis Pain Reliever) rivaroxaban 20 mg tablet (Xarelto) 20 mg PO BEDTIME 01/12/22 07/05/22 History absorbine veterinary liniment gel topical PRN arthritis pain 06/22/22 06/22/22 History Allergies Allergy/AdvReac Type Severity Reaction Status Date / Time No Known Allergies Allergy Verified 06/22/22 10:01 [No Known Allergies*] Exam Vital signs: Vital Signs Temp 97.9 F 07/05/22 09:20 Pulse 61 07/05/22 09:20 Resp 15 07/05/22 09:20 BP 148/73 H 07/05/22 09:20 Pulse Ox 99 07/05/22 09:20 O2 Del Method 07/05/22 09:20 Intake & Output 07/04/22 07/05/22 07/05/22 18:59 06:59 18:59 Other: Weight 76.9 kg Weight in Grams [id number] Weight 76.9 kg BMI result Body Mass Index 24.3 - Constitutional Present: no acute distress - Routine HEENT Exam Head: Present: normal inspection - Routine Respiratory Exam Present: CTAB. Absent: accessory muscle use - Routine Cardiovascular Exam Cardiovascular: Present: RRR, S1, S2 - Routine Extremities Exam Absent: calf tenderness - Routine Skin Exam Present: intact. Absent: cyanosis Data - Labs CBC & Chem 7: 07/05/22 10:16 03/14/22 10:51 Assessment and Plan Patient Active problem list reviewed?: Yes (1) Anemia Status: Deleted Assessment and plan: 1. 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 He has no hematinic deficiencies. No evidence of hemolysis or medication induced anemia. Diagnostic bone marrow aspiration / biopsy performed 11/12/2021 showed hypercellular, erythroid dominant marrow with maturing trilineage hematopoiesis. Negative for blasts or infiltrative process. Increased iron stores. Flow cy tometry showed no increase in CD34 positive events and no aberrant antigen expression. 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 FISH MDS panel showed no abnormalities. Haptoglobin level was normal. No evidence of hemolysis. Anemia has improved. He is on JACQUELINE therapy with procrit. Lab/Procrit every 3 weeks depending on blood counts. Follow-up in 3 months. - Time Spent With Patient Time Spent with Patient (in minutes): 15
--- NOTE | 2022-07-05 11:47 | MHC.HEMONCMA ---
3 month follow up
[2022-07-26 10:01] LABS: MANUAL DIFF FLAG NO
[2022-07-26 10:07] LABS: Basophils Percent Auto 0.8 % (0-2); Eosinophils Absolute Auto 0.1 X10*3/uL (0.0-0.4); Eosinophils Percent Auto 1.4 % (0-4); Hematocrit 32.9 % (42.0-52.0); Hemoglobin 10.7 g/dl (14.0-18.0); Imm Gran Abs Auto 0.02 X10*3/uL (0.00-0.03); Imm Gran Pct Auto 0.4 % (0.0-0.4); Lymphocytes Absolute Auto 1.4 X10*3/uL (1.2-4.9); Lymphocytes Percent Auto 28.3 % (20-40); Mean Corpuscular HGB Conc 32.5 g/dl (31.0-36.0); Mean Corpuscular Volume 98.5 fL (80.0-98.0); Mean Platelet Volume 9.7 fL (9.4-12.4); Monocytes Absolute Auto 0.6 X10*3/uL (0.1-1.2); Monocytes Percent Auto 10.9 % (2-11); NRBC Pct Auto 0.6 /100WBC (0.0-0.2); Neutrophils Percent Auto 58.2 % (45-73); Platelet Count 204 X10*3/uL (160-400); Red Blood Count 3.34 X10*6/uL (4.60-5.80); Red Cell Distribution Width 18.1 % (11.0-16.0); White Blood Count 5.1 X10*3/uL (4.8-10.8)
--- NOTE | 2022-07-26 10:23 | MHC.HEMONC ---
pt attended for procit hgb 10.[address] jarvis, procrit not needed and redraw in 3 weeks
[2022-08-16 10:04] LABS: MANUAL DIFF FLAG NO
[2022-08-16 10:10] LABS: Basophils Percent Auto 0.8 % (0-2); Eosinophils Absolute Auto 0.1 X10*3/uL (0.0-0.4); Hematocrit 31.9 % (42.0-52.0); Hemoglobin 10.3 g/dl (14.0-18.0); Imm Gran Abs Auto 0.02 X10*3/uL (0.00-0.03); Imm Gran Pct Auto 0.4 % (0.0-0.4); Lymphocytes Absolute Auto 1.4 X10*3/uL (1.2-4.9); Lymphocytes Percent Auto 26.2 % (20-40); Mean Corpuscular HGB Conc 32.3 g/dl (31.0-36.0); Mean Corpuscular Hemoglobin 31.9 pg (27.0-33.0); Mean Corpuscular Volume 98.8 fL (80.0-98.0); Mean Platelet Volume 9.5 fL (9.4-12.4); Monocytes Absolute Auto 0.5 X10*3/uL (0.1-1.2); Monocytes Percent Auto 10.2 % (2-11); NRBC Pct Auto 0.4 /100WBC (0.0-0.2); Neutrophils Absolute Auto 3.2 x10*3/uL (2.0-8.3); Neutrophils Percent Auto 61.4 % (45-73); Platelet Count 199 X10*3/uL (160-400); Red Blood Count 3.23 X10*6/uL (4.60-5.80); Red Cell Distribution Width 17.8 % (11.0-16.0); White Blood Count 5.2 X10*3/uL (4.8-10.8)
[2022-08-16] MEDS: Epoetin Alfa 40,000 UNIT/ML VIAL 40000 UNIT SUBCUT (10:26)
[2022-08-16 10:29] VITALS: BP 159/79; PULSE 56
--- NOTE | 2022-08-16 10:39 | MHC.HEMONC ---
40,000 unit procrit given for hgb 10.3
[2022-09-06 10:14] LABS: MANUAL DIFF FLAG NO
[2022-09-06 10:19] LABS: Basophils Absolute Auto 0.1 X10*3/uL (0.0-0.2); Basophils Percent Auto 0.7 % (0-2); Eosinophils Absolute Auto 0.1 X10*3/uL (0.0-0.4); Eosinophils Percent Auto 0.7 % (0-4); Hematocrit 31.5 % (42.0-52.0); Hemoglobin 10.2 g/dl (14.0-18.0); Imm Gran Abs Auto 0.02 X10*3/uL (0.00-0.03); Imm Gran Pct Auto 0.3 % (0.0-0.4); Lymphocytes Absolute Auto 1.2 X10*3/uL (1.2-4.9); Lymphocytes Percent Auto 17.9 % (20-40); Mean Corpuscular HGB Conc 32.4 g/dl (31.0-36.0); Mean Corpuscular Hemoglobin 32.4 pg (27.0-33.0); Mean Platelet Volume 9.8 fL (9.4-12.4); Monocytes Absolute Auto 0.6 X10*3/uL (0.1-1.2); Monocytes Percent Auto 8.6 % (2-11); NRBC Pct Auto 0.7 /100WBC (0.0-0.2); Neutrophils Absolute Auto 4.9 x10*3/uL (2.0-8.3); Neutrophils Percent Auto 71.8 % (45-73); Platelet Count 203 X10*3/uL (160-400); Red Blood Count 3.15 X10*6/uL (4.60-5.80); Red Cell Distribution Width 19.1 % (11.0-16.0); White Blood Count 6.8 X10*3/uL (4.8-10.8)
[2022-09-06 10:42] VITALS: BP 133/76; PULSE 70; RESP 20
[2022-09-06] MEDS: Epoetin Alfa 40,000 UNIT/ML VIAL 40000 UNIT SUBCUT (11:11)
--- NOTE | 2022-09-06 11:16 | MHC.HEMONC ---
procrit in l arm for hgb 10.2 return in 2 weeks
--- NOTE | 2022-09-27 10:15 | P.PNHO-ONC_ITS ---
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 No hematinic deficiencies. Mild renal insufficiency with a creatinine of 1.29 mg/dL. Diagnostic bone marrow aspiration / biopsy performed 11/12/2021 showed hypercellular, erythroid dominant marrow with maturing trilineage hematopoiesis. Negative for blasts or infiltrative process. Increased iron stores. Flow cytometry showed no increase in CD34 positive events and no aberrant antigen expression. 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 FISH MDS panel showed no abnormalities. Haptoglobin level was normal. No evidence of hemolysis. Interval History Interval history: Patient is here in follow-up. He feels well. He is able to go out in the garden and is more active. He denies body aches, headache or chest pain. He is doing well and has no complaints today. 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 Surgical History: Surgical History (Last Reviewed 09/27/22 @ 10:22 by Angela Orta) History of bone marrow biopsy History of fusion of cervical spine History of heart artery stent Social History: Social History (Last Reviewed 09/27/22 @ 10:22 by Angela Orta) Living Situation History: Household Members: Spouse Housing: House Are you a primary reproductive healthcare assistant to a significant other at home: No Do you presently have visiting nurse or other home services: No Alcohol History Details: 1. How often do you have a drink containing alcohol?: a. Never Tobacco History: Patient Tobacco Use Status: Former Tobacco user Tobacco use type: Cigarette Cigarette Packs Per Day: 0.5 Years Smoked: 1 e-Cigarette/Vaping Use: Never Used Second Hand Smoke Exposure: No Substance Use History: Use of substances other than those prescribed or required for medical reasons : No Domestic Abuse History: Have you been hit, kicked, punched, or otherwise hurt by someone within the past year? If so, by whom?: No Do you feel safe in your current relationship?: Yes Homicidal Assessment: Do you have thoughts of harming others: None Do you have a plan to hurt others: No Plan Do you have the means to hurt others: No Nutrition Assessment: Recently lost weight without trying: No Occupation Assessmet: service: No Current occupational status: retired Home Medications and Allergies Home Medications Medication Instructions Recorded Confirmed Type acetaminophen 650 mg 650 mg PO Q12H 02/22/21 09/27/22 History tablet,extended release (Arthritis Pain Reliever) absorbine veterinary liniment gel topical PRN arthritis pain 06/22/22 06/22/22 History Allergies Allergy/AdvReac Type Severity Reaction Status Date / Time No Known Allergies Allergy Verified 09/22/22 13:38 [No Known Allergies*] Exam Vital signs: Vital Signs Temp 97.9 F 07/05/22 09:20 Pulse 70 09/06/22 10:42 Resp 20 09/06/22 10:42 BP 133/76 09/06/22 10:42 Pulse Ox 99 07/05/22 09:20 O2 Del Method 07/05/22 09:20 Weight 76.9 kg BMI result Body Mass Index 24.3 - Constitutional Present: no acute distress - Routine HEENT Exam Head: Present: normal inspection - Routine Neck Exam Present: full ROM. Absent: lymphadenopathy - Routine Respiratory Exam Present: CTAB. Absent: accessory muscle use - Routine Cardiovascular Exam Cardiovascular: Present: RRR, S1, S2 - Routine Extremities Exam Absent: calf tenderness - Routine Skin Exam Present: intact. Absent: cyanosis Data - Labs CBC & Chem 7: 09/27/22 10:08 03/14/22 10:51 Assessment and Plan Patient Active problem list reviewed?: Yes (1) Anemia Status: Chronic Assessment and plan: 1. 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 He has no hematinic deficiencies. No evidence of hemolysis or medication induced anemia. Diagnostic bone marrow aspiration / biopsy performed 11/12/2021 showed hypercellular, erythroid dominant marrow with maturing trilineage hematopoiesis. Negative for blasts or infiltrative process. Increased iron stores. Flow cytometry showed no increase in CD34 positive events and no aberrant antigen expression. 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 FISH MDS panel showed no abnormalities. Haptoglobin level was normal. No evidence of hemolysis. Anemia has improved. He is on JACQUELINE therapy with procrit. I will decrease frequency to every 4 weeks. Follow-up in 3 months. - Time Spent With Patient Time Spent with Patient (in minutes): 15
[2022-09-27 10:16] LABS: MANUAL DIFF FLAG NO
[2022-09-27 10:18] LABS: Basophils Absolute Auto 0.1 X10*3/uL (0.0-0.2); Basophils Percent Auto 0.9 % (0-2); Eosinophils Absolute Auto 0.1 X10*3/uL (0.0-0.4); Eosinophils Percent Auto 0.9 % (0-4); Hematocrit 32.4 % (42.0-52.0); Hemoglobin 10.7 g/dl (14.0-18.0); Imm Gran Abs Auto 0.02 X10*3/uL (0.00-0.03); Imm Gran Pct Auto 0.4 % (0.0-0.4); Lymphocytes Absolute Auto 1.2 X10*3/uL (1.2-4.9); Lymphocytes Percent Auto 22.1 % (20-40); Mean Corpuscular Hemoglobin 32.9 pg (27.0-33.0); Mean Corpuscular Volume 99.7 fL (80.0-98.0); Mean Platelet Volume 9.6 fL (9.4-12.4); Monocytes Absolute Auto 0.5 X10*3/uL (0.1-1.2); Monocytes Percent Auto 9.9 % (2-11); NRBC Pct Auto 0.7 /100WBC (0.0-0.2); Neutrophils Absolute Auto 3.6 x10*3/uL (2.0-8.3); Neutrophils Percent Auto 65.8 % (45-73); Platelet Count 217 X10*3/uL (160-400); Red Blood Count 3.25 X10*6/uL (4.60-5.80); Red Cell Distribution Width 19.4 % (11.0-16.0); White Blood Count 5.4 X10*3/uL (4.8-10.8)
[2022-09-27 10:19] VITALS: BP 137/70; PULSE 63; RESP 15; TEMP 36.4; O2SAT 99; BMI 24.0
--- NOTE | 2022-09-27 11:12 | MHC.HEMONCMA ---
patient seen today for followup anemia, VSS, labs, 2 month followup.
--- NOTE | 2022-09-27 15:27 | MHC.HEMONC ---
Procrit 10,000units sc given as ordered and tolerated well. Hgb 10.7. Injections will now be monthly instead of q3 weeks. Next injection scheduled.
[2022-10-25 10:03] LABS: MANUAL DIFF FLAG NO
[2022-10-25 10:08] LABS: Basophils Absolute Auto 0.1 X10*3/uL (0.0-0.2); Basophils Percent Auto 0.9 % (0-2); Eosinophils Percent Auto 0.7 % (0-4); Hematocrit 32.2 % (42.0-52.0); Hemoglobin 10.6 g/dl (14.0-18.0); Imm Gran Abs Auto 0.02 X10*3/uL (0.00-0.03); Imm Gran Pct Auto 0.4 % (0.0-0.4); Lymphocytes Absolute Auto 1.3 X10*3/uL (1.2-4.9); Lymphocytes Percent Auto 23.3 % (20-40); Mean Corpuscular HGB Conc 32.9 g/dl (31.0-36.0); Mean Corpuscular Hemoglobin 32.4 pg (27.0-33.0); Mean Corpuscular Volume 98.5 fL (80.0-98.0); Mean Platelet Volume 10.1 fL (9.4-12.4); Monocytes Absolute Auto 0.5 X10*3/uL (0.1-1.2); Monocytes Percent Auto 8.6 % (2-11); NRBC Pct Auto 0.5 /100WBC (0.0-0.2); Neutrophils Absolute Auto 3.8 x10*3/uL (2.0-8.3); Neutrophils Percent Auto 66.1 % (45-73); Platelet Count 207 X10*3/uL (160-400); Red Blood Count 3.27 X10*6/uL (4.60-5.80); Red Cell Distribution Width 18.4 % (11.0-16.0); White Blood Count 5.7 X10*3/uL (4.8-10.8)
[2022-10-25 10:23] VITALS: BP 116/56; PULSE 66; RESP 18; TEMP 36.7; O2SAT 98; BMI 24.0
[2022-10-25 10:25] LABS: Alanine Aminotransferase 20 U/L (0-40); Albumin Level 4.1 g/dL (3.5-5.0); Alkaline Phosphatase 38 U/L (39-117); Anion Gap 10 (12-20); Aspartate Amino Transferase 18 U/L (5-37); Bilirubin Total 0.9 mg/dL (0.0-1.0); Blood Urea Nitrogen 21 mg/dL (9-16); Calcium 9.2 mg/dL (8.4-10.2); Carbon Dioxide 26 mmol/L (22-29); Chloride 106 mmol/L (96-108); Creatinine Clr Calc Pharmacy 44.5; Estimated Glomerular Filt Rate 56; Glucose Random 106 mg/dL (60-115); Potassium 4.7 mmol/L (3.3-5.1); Sodium 137 mmol/L (135-145); Total Protein 6.2 g/dL (6.5-8.0)
--- NOTE | 2022-10-25 12:21 | MHC.HEMONC ---
Monthly procrit 44539 units given for hgb=10.6 Calendar and lab report provided. Pt aware of next appt.
--- NOTE | 2022-11-18 12:42 | HE.ONCSEC ---
[facility] for injection on 11/22.
[2022-11-22 10:09] LABS: MANUAL DIFF FLAG NO
[2022-11-22 10:14] LABS: Basophils Absolute Auto 0.1 X10*3/uL (0.0-0.2); Eosinophils Absolute Auto 0.1 X10*3/uL (0.0-0.4); Hematocrit 31.4 % (42.0-52.0); Hemoglobin 10.5 g/dl (14.0-18.0); Imm Gran Abs Auto 0.01 X10*3/uL (0.00-0.03); Imm Gran Pct Auto 0.2 % (0.0-0.4); Lymphocytes Absolute Auto 1.1 X10*3/uL (1.2-4.9); Lymphocytes Percent Auto 22.8 % (20-40); Mean Corpuscular HGB Conc 33.4 g/dl (31.0-36.0); Mean Corpuscular Hemoglobin 33.1 pg (27.0-33.0); Mean Corpuscular Volume 99.1 fL (80.0-98.0); Mean Platelet Volume 10.1 fL (9.4-12.4); Monocytes Absolute Auto 0.5 X10*3/uL (0.1-1.2); Monocytes Percent Auto 9.7 % (2-11); NRBC Pct Auto 0.8 /100WBC (0.0-0.2); Neutrophils Absolute Auto 3.2 x10*3/uL (2.0-8.3); Neutrophils Percent Auto 65.3 % (45-73); Platelet Count 223 X10*3/uL (160-400); Red Blood Count 3.17 X10*6/uL (4.60-5.80); Red Cell Distribution Width 17.6 % (11.0-16.0)
[2022-11-22 10:29] VITALS: BP 142/67; PULSE 62; RESP 18; TEMP 36.1; O2SAT 98
--- NOTE | 2022-11-22 10:49 | MHC.HEMONC ---
Procrit 20,000units sc given left arm and tolerated well. Hgb 10.5. Next injection scheduled for 1 month.
--- NOTE | 2022-12-21 15:24 | HE.ONCSEC ---
Pts granddaughter Norma called to cancel appt and to let us know he . Expressed our condolences.
== END 2022-12-14 | disposition home or self-care (01) ==
LOC: HO.ONC 10:00
PROVIDERS: PCP Internal Medicine; Referring Provider Internal Medicine; Visit Provider Internal Medicine
DX: D46.9 Myelodysplastic syndrome, unspecified (principal); D53.9 Nutritional anemia, unspecified; D80.1 Nonfamilial hypogammaglobulinemia; N18.2 Chronic kidney disease, stage 2 (mild)
CPT/HCPCS: 36415; 36430; 80053; 80076; 82525; 82565; 82668; 82728; 82784; 83010; 83540; 84165; 84520; 85025; 85027; 85045; 86334; 86850; 86900; 86901; 86923; 96372; 99204; 99213; 99214; J0885; P9016

== ENCOUNTER 2022-12-02 16:33 | Emergency (ER) | payer MEDICARE, SELFPAY ==
--- NOTE | ~2022-12-02 | CT_ITS ---
EXAMINATION: CT HEAD WITHOUT CONTRAST CLINICAL INFORMATION: Left arm weakness. Aphasia. COMPARISON: 04/01/2022 TECHNIQUE: Contiguous axial imaging was performed from the skull base to vertex without intravenous contrast. This CT examination was performed using dose optimization techniques as appropriate, variously including the following: * Automated exposure control * Adjustment of mA and/or kV according to patient size (this includes techniques or standardized protocols for targeted exams where dose is matched to indication/reason for exam; i.e. extremities or head) Use of iterative reconstruction technique DLP: 743 mGy-cm. FINDINGS: There is no evidence of acute intracranial hemorrhage or territorial infarction. No abnormal mass effect or midline shift is seen. Pineda to white matter differentiation is well preserved. There is some focal hyperattenuation noted in the right MCA as seen on series 6 image 37. This could be artifactual but will be further evaluated on the subsequent CT angiogram. No extra-axial fluid collections are identified. No hydrocephalus. Proportional prominence of the ventricles and sulcal spaces is consistent with mild volume loss. Patchy periventricular and deep white matter hypoattenuation is consistent with mild small vessel ischemic changes. The osseous structures and soft tissues are normal. The mastoid air cells and visualized portions of the paranasal sinuses are well aerated. CT/CT head for stroke IMPRESSION: No acute intracranial pathology. Chronic volume loss with small vessel ischemic change. There is some focal hyperattenuation noted in the right MCA as seen on series 6 image 37 (possible dense MCA). This could be artifactual but will be further evaluated on the subsequent CT angiogram. This critical result was discussed with Maryuri Estrada MD by telephone at 12/02/2022 4:47 PM and it was ascertained that the content and urgency of the report was understood at the time of direct communication.
--- NOTE | ~2022-12-02 | CT_ITS ---
CT ANGIOGRAM NECK WITH CONTRAST CT ANGIOGRAM BRAIN WITH CONTRAST CLINICAL INFORMATION: Left arm weakness and aphasia. COMPARISON: Head CT 12/02/2022. TECHNIQUE: Test bolus sequences followed by intravenous administration 70 mL of Omnipaque 350. Helical imaging was performed in the axial plane from the thoracic inlet to the skull vertex. Delayed postcontrast imaging of the head was also performed. The data was processed at the fibre technologist workstation for generation of MIP sequences. Angled MIPs and volume rendered reformatted images were also generated at an offline 3D workstation under concurrent supervision. Stenoses are assessed in accordance with NASCET criteria unless otherwise indicated. This CT examination was performed using dose optimization techniques as appropriate, variously including the following: *Automated exposure control *Adjustment of mA and/or kV according to patient size (this includes techniques or standardized protocols for targeted exams where dose is matched to indication/reason for exam; i.e. extremities or head) *Use of iterative reconstruction technique FINDINGS: BRAIN: [There is mild chronic microangiopathy. There is no intracranial hemorrhage, hydrocephalus, extra-axial surface collection, midline shift, or other herniation pattern. Though not well seen on the noncontrast CT, there is anne to white matter differentiation loss within portions of the right temporal lobe, the right insula, and the right basal ganglia on the CTA source data which could reflect ischemic penumbra versus core infarction that would be better assessed with perfusion imaging or MRI. The basilar cisterns are preserved. No significant soft tissue abnormality. No acute osseous abnormality. The paranasal sinuses and the mastoid air cells are well aerated.] CERVICAL SOFT TISSUES AND LUNG APICES: Imaged upper lungs are clear. There are no significant soft tissue findings within the neck. Postoperative changes following posterior instrumented fusion at the C1-C2 level. There is solid C1-C2 fusion. Advanced cervical spondylosis. NECK CTA: There is atherosclerotic calcification throughout the aortic arch without significant stenosis involving the great vessel origins. The vertebral arteries are codominant and remain widely patent. Common carotid arteries are widely patent. There is atherosclerotic calcification involving the carotid bifurcations bilaterally without significant stenosis involving the proximal internal carotid artery on either side. Retropharyngeal course of the proximal left cervical ICA. BRAIN CTA: There is atherosclerotic calcification throughout the carotid siphons bilaterally. No significant stenosis involving the internal carotid arteries on either side. 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 Neuro interventional consultation advised. No aneurysm. 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 Neuro interventional consultation advised. - Though not well seen on the noncontrast CT, there is anne to white matter differentiation loss within portions of the right temporal lobe, the right insula, and the right basal ganglia on the CTA source data which could reflect ischemic penumbra versus core infarction that would be better assessed with perfusion imaging or MRI. - Postoperative changes following posterior instrumented fusion at the C1-C2 level. There is solid C1-C2 fusion. Advanced cervical spondylosis. Findings discussed with Dr. Estrada at 5:26 PM on 12/02/2022.
--- NOTE | 2022-12-02 16:39 | ECG_ITS ---
Test Reason : STROKE Blood Pressure : / mmHG Vent. Rate : 063 BPM Atrial Rate : 000 BPM P-R Int : 000 ms QRS Dur : 092 ms QT Int : 422 ms P-R-T Axes : 000 043 021 degrees QTc Int : 431 ms Atrial fibrillation Abnormal ECG When compared with ECG of 01-APR-2022 13:22, Nonspecific T wave abnormality, improved in Inferior leads T wave inversion no longer evident in Lateral leads Referred By: Maryuri Estrada Electronically Signed By:TAWNYA WASSERMAN MD
[2022-12-02 16:40] VITALS: BP 139/71; PULSE 58; O2SAT 98
--- NOTE | 2022-12-02 16:44 | ED.NEUROSD ---
HPI - Neuro Symptoms/Deficit General Chief Complaint: Altered Mental Status Stated Complaint: stroke alert Time Seen by Provider: 12/02/22 16:38 Source: EMS Mode of arrival: EMS Limitations: other (Aphasia) History of Present Illness HPI Narrative: Patient comes to the emergency room complaining of expressive aphasia and left arm weakness. Patient is unable to give any history. Patient also very hard of hearing. According to EMS, the family reports that the patient is at baseline alert and oriented x3, at 16:00, approximately 45 minutes ago, patient had sudden onset of being unable to talk and also unable to move his left arm. Patient is on Xarelto. Related Data Home Medications Medication Instructions Recorded Confirmed acetaminophen 650 mg 650 mg PO Q12H 02/22/21 09/27/22 tablet,extended release (Arthritis Pain Reliever) absorbine veterinary liniment gel topical PRN arthritis pain 06/22/22 06/22/22 Previous Rx's Medication Instructions Recorded atenolol 25 mg tablet 50 mg PO DAILY #180 tabs 05/31/22 terazosin 1 mg capsule 2 mg PO BEDTIME #180 caps 08/22/22 rivaroxaban 20 mg tablet (Xarelto) 20 mg PO BEDTIME #90 tabs 09/15/22 tramadol 50 mg tablet 50 mg PO BID PRN shoulder pain #30 11/17/22 tabs Allergies Allergy/AdvReac Type Severity Reaction Status Date / Time No Known Allergies Allergy Verified 09/22/22 13:38 [No Known Allergies*] Review of Systems Review of Systems: Patient states he feels okay Yes Unobtainable due to mental condition PMFSH Past Medical History Medical History Acquired hypogammaglobulinemia Anemia Atherosclerotic cardiovascular disease Benign prostatic hyperplasia Cervical spondylosis with radiculopathy Chronic fatigue and malaise Depression Hearing loss History of pneumonia Left hydrocele Macrocytic anemia Macrocytic anemia Mild valvular heart disease Myoclonic jerking Persistent atrial fibrillation Right rotator cuff tear Shoulder pain, left Surgical History History of bone marrow biopsy History of fusion of cervical spine History of heart artery stent Family History Family History Father CVD (cardiovascular disease) Mother No problems noted. Social History Social History Household Members: Spouse Housing: House Are you a primary assurance services manager health care to a significant other at home: No Do you presently have visiting nurse or other home services: No Alcohol intake: current Alcohol intake frequency: does not drink Alcohol type: beer Patient Tobacco Use Status: Former Tobacco user Tobacco use type: Cigarette Cigarette Packs Per Day: 0.5 Years Smoked: 1 Smoked in Last 30 Days: No e-Cigarette/Vaping Use: Never Used Second Hand Smoke Exposure: No Use of substances other than those prescribed or required for medical reasons: No Advance Directives: No Advance Directives Information Provided: Yes service: No Current occupational status: retired Cognitive needs: No Hearing needs: Yes Vision needs: Yes Physical Exam Vital Signs: Vital Signs: Last Vital Signs Temp 98.5 F 12/02/22 17:07 Pulse 65 12/02/22 17:07 Resp 20 12/02/22 17:07 BP 169/77 H 12/02/22 17:07 Pulse Ox 97 12/02/22 17:07 O2 Del Method 12/02/22 17:07 BMI result Body Mass Index 28.8 Const: Other: Appearance: Alert. Oriented X3. No acute distress. Eyes: Pupils equal, round and reactive to light. ENT: Pharynx normal. Neck: Normal inspection. Neck supple. No lymph nodes noted. No crepitus CVS: Normal heart rate and rhythm. Pulses normal. Normal S1 and S2 Respiratory: No respiratory distress. Breath sounds normal. No Wheezing. No rales Abdomen: Soft and nontender. No rigidity. No distention. Skin: Skin warm and dry. Normal skin color. Normal skin turgor. Extremities: No lower extremity edema. No Lacerations. No Rash Neuro: Patient has both, mild dysarthria and aphasia, patient is unable to move his left arm , significant strength decreased on the left side. Patient able to move both legs Psych: calm, cooperative, normal affect Course Course Course Narrative: -I discussed the CT and CTA with the neurologist. The head CT is negative. 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 -I discussed the above mentioned with the patient and his son Medications Administered Discontinued Medications Generic Name Dose Route Start Last Admin Trade Name Ariella PRN Reason Stop Dose Admin Iohexol 100 ml 12/02/22 17:03 12/02/22 17:03 Iohexol 350 Mg/Ml 100 Ml Infus..Btl IV 12/02/22 17:04 70 ml ONCE ONE Administration Medical Decision Making Medical Decision Making [facility] Narrative: -patient was accepted by Dr. Nazario from the original neurology. Patient will be going ED to ED. I also spoke to the ED attending, aware the patient -patient is stable, blood pressure 169/77, heart rate 65, respirations 20, temperature 98.5 degrees, 97% on room air. Differential Diagnosis Differential Diagnoses: The differential diagnosis associated with the presentation includes (TIA, CVA) Admission/Observation Consideration of admission/observation: Escalation of care including admission/observation considered Consult Healthcare Provider Management of the patient was discussed with: Conductor Pullman Lab Data [facility] Lab Attestation statement: I reviewed the patient's lab results. 12/02/22 17:21 Labs: Lab Results 12/02/22 12/02/22 12/02/22 Range/Units 16:40 16:40 17:17 WBC (4.8-10.8) X10*3/uL RBC (4.60-5.80) X10*6/uL Hgb (14.0-18.0) g/dl Hct (42.0-52.0) % MCV (80.0-98.0) fL MCH (27.0-33.0) pg MCHC (31.0-36.0) g/dl RDW (11.0-16.0) % Plt Count (160-400) X10*3/uL MPV (9.4-12.4) fL PT (10.0-13.1) SEC Whole Blood PT 15.1 H (11.1-13.5) sec INR (0.9-1.1) Whole Blood INR 1.3 H (0.9-1.1) POC Glucose 106 (60-115) mg/dL COVID-19 ([facility]) Negative (Negative) COVID-19 Clin Com See Note 12/02/22 12/02/22 Range/Units 17:21 17:21 WBC 4.2 L (4.8-10.8) X10*3/uL RBC 2.98 L (4.60-5.80) X10*6/uL Hgb 9.8 L (14.0-18.0) g/dl Hct 29.5 L (42.0-52.0) % MCV 99.0 H (80.0-98.0) fL MCH 32.9 (27.0-33.0) pg MCHC 33.2 (31.0-36.0) g/dl RDW 18.5 H (11.0-16.0) % Plt Count 193 (160-400) X10*3/uL MPV 10.4 (9.4-12.4) fL PT 16.8 H (10.0-13.1) SEC Whole Blood PT (11.1-13.5) sec INR 1.4 H (0.9-1.1) Whole Blood INR (0.9-1.1) POC Glucose (60-115) mg/dL COVID-19 ([facility]) (Negative) COVID-19 Clin Com Independent Interpretation I performed an independent interpretation of an: CT Scan (My interpretation head CT, no acute intracranial bleed) Radiology Impression Discussion of test interpretation with radiology: I have reviewed the radiologist's reading. Radiologist Impression: BRAIN: [There is mild chronic microangiopathy. There is no intracranial hemorrhage, hydrocephalus, extra-axial surface collection, midline shift, or other herniation pattern. Though not well seen on the noncontrast CT, there is anne to white matter differentiation loss within portions of the right temporal lobe, the right insula, and the right basal ganglia on the CTA source data which could reflect ischemic penumbra versus core infarction that would be better assessed with perfusion imaging or MRI. The basilar cisterns are preserved. No significant soft tissue abnormality. No acute osseous abnormality. The paranasal sinuses and the mastoid air cells are well aerated.] CERVICAL SOFT TISSUES AND LUNG APICES: Imaged upper lungs are clear. There are no significant soft tissue findings within the neck. Postoperative changes following posterior instrumented fusion at the C1-C2 level. There is solid C1-C2 fusion. Advanced cervical spondylosis. NECK CTA: There is atherosclerotic calcification throughout the aortic arch without significant stenosis involving the great vessel origins. The vertebral arteries are codominant and remain widely patent. Common carotid arteries are widely patent. There is atherosclerotic calcification involving the carotid bifurcations bilaterally without significant stenosis involving the proximal internal carotid artery on either side. Retropharyngeal course of the proximal left cervical ICA. BRAIN CTA: There is atherosclerotic calcification throughout the carotid siphons bilaterally. No significant stenosis involving the internal carotid arteries on either side. 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 Neuro interventional consultation advised. No aneurysm. Timing of the contrast bolus allows assessment of the major dural venous sinuses, which all opacify normally] CT/CT angio head? 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 Neuro interventional consultation advised. ? - Though not well seen on the noncontrast CT, there is anne to white matter differentiation loss within portions of the right temporal lobe, the right insula, and the right basal ganglia on the CTA source data which could reflect ischemic penumbra versus core infarction that would be better assessed with perfusion imaging or MRI. ? - Postoperative changes following posterior instrumented fusion at the C1-C2 level. There is solid C1-C2 fusion. Advanced cervical spondylosis. NIH Stroke Scale Level of Consciousness: Alert Level of Consciousness Questions: Answers both questions correctly Level of Consciousness Commands: Performs both tasks correctly Best Gaze: Normal Visual: No visual loss Facial Palsy: Partial paralysis Motor Arm (Right): No drift Motor Arm (Left): No effort against gravity Motor Leg (Right): No drift Motor Leg (Left): No drift Limb Ataxia: Absent Sensory: Normal Best Language: Mild to moderate aphasia Dysarthia: Mild to moderate dysarthria Extinction and Inattention: No abnormality Score: 7 Critical Care Time Critical Care Time Critical Care Time: Yes Total Critical Care Time: 60 Attestation: I have personally provided critical care time. Time includes review of lab data, radiology results, discussion with consultants, and monitoring for potential decompensation. Intervention performed as documented. Discharge Plan Discharge Clinical Impression: Embolic stroke Patient Disposition: [facility] Transfer Details: ED to ED at [facility] Prescriptions: No Action atenolol 25 mg tablet 50 mg PO DAILY Qty: 180 1RF terazosin 1 mg capsule 2 mg PO BEDTIME Qty: 180 1RF Xarelto 20 mg tablet 20 mg PO BEDTIME Qty: 90 1RF tramadol 50 mg tablet 50 mg PO BID PRN (Reason: shoulder pain) Qty: 30 0RF acetaminophen [Arthritis Pain Reliever] 650 mg tablet extended release 650 mg PO Q12H absorbine veterinary liniment gel topical PRN (Reason: arthritis pain)
[2022-12-02 16:49] LABS: Prothrombin Time Whole Bld POC 15.1 sec (11.1-13.5); ~PT, ~INR - Anti Coag Clinic 1.3 (0.9-1.1)
[2022-12-02 16:50] LABS: Glucose, Whole Blood 106 mg/dL (60-115)
[2022-12-02] MEDS: iohexoL 350 MG/ML 100 ML INFUS..BTL IV (17:03)
[2022-12-02 17:07] VITALS: BP 169/77; PULSE 65; RESP 20; TEMP 36.9; O2SAT 97; BMI 28.8
[2022-12-02 17:39] LABS: Basophils Percent Auto 0.9 % (0-2); Eosinophils Absolute Auto 0.1 X10*3/uL (0.0-0.4); Eosinophils Percent Auto 1.7 % (0-4); Hematocrit 29.5 % (42.0-52.0); Hemoglobin 9.8 g/dl (14.0-18.0); Imm Gran Abs Auto 0.01 X10*3/uL (0.00-0.03); Imm Gran Pct Auto 0.2 % (0.0-0.4); Lymphocytes Absolute Auto 1.3 X10*3/uL (1.2-4.9); Lymphocytes Percent Auto 29.9 % (20-40); Mean Corpuscular HGB Conc 33.2 g/dl (31.0-36.0); Mean Corpuscular Hemoglobin 32.9 pg (27.0-33.0); Mean Platelet Volume 10.4 fL (9.4-12.4); Monocytes Absolute Auto 0.5 X10*3/uL (0.1-1.2); Monocytes Percent Auto 11.4 % (2-11); Neutrophils Absolute Auto 2.4 x10*3/uL (2.0-8.3); Neutrophils Percent Auto 55.9 % (45-73); Platelet Count 193 X10*3/uL (160-400); Red Blood Count 2.98 X10*6/uL (4.60-5.80); Red Cell Distribution Width 18.5 % (11.0-16.0); White Blood Count 4.2 X10*3/uL (4.8-10.8)
[2022-12-02 17:41] LABS: NRBC Pct Auto 1.2 /100WBC (0.0-0.2)
[2022-12-02 17:42] LABS: MANUAL DIFF FLAG SCAN
[2022-12-02 17:45] LABS: INTERNATIONAL NORM RATIO 1.4 (0.9-1.1); Prothrombin Time 16.8 SEC (10.0-13.1)
[2022-12-02 17:52] LABS: COVID-19 Test Negative (Negative); IDNOW Serial# 16C4AD1C
[2022-12-02 18:06] LABS: SLIDE REVIEW VERIFIED; Troponin-I High Sensitivity 4.7 ng/L (<3.5-35.0)
[2022-12-02 20:11] LABS: Alanine Aminotransferase 13 U/L (0-40); Albumin Level 3.8 g/dL (3.5-5.0); Alkaline Phosphatase 39 U/L (39-117); Anion Gap 14 (12-20); Aspartate Amino Transferase 15 U/L (5-37); Bilirubin Direct 0.2 mg/dL (0.0-0.5); Bilirubin Total 0.9 mg/dL (0.0-1.0); Blood Urea Nitrogen 28 mg/dL (9-16); Calcium 8.4 mg/dL (8.4-10.2); Carbon Dioxide 22 mmol/L (22-29); Chloride 105 mmol/L (96-108); Creatinine Clr Calc Pharmacy 55.6; Estimated Glomerular Filt Rate > 60; Ethanol < 10 mg/dL; Glucose Random 112 mg/dL (60-115); Magnesium 1.9 mg/dL (1.6-2.6); Potassium 4.9 mmol/L (3.3-5.1); Sodium 136 mmol/L (135-145); Total Protein 5.7 g/dL (6.5-8.0)
--- NOTE | 2022-12-03 11:10 | MHC.STROKE ---
12/02/22 [facility] PRE-NOTIFIED STROKE ALERT ONSET 1600 LEFT SIDED WEAKNESS, APHASIA, DYSARTHRIA ON XARELTO FOR AFIB. [place] [facility] [place] EXAMINED BY PROVIDER NIHSS = 7, DIRECT TO CT ON EMS STRETCHER. CTH DONE AT 1636, READ 1647, NO BLEED, CTA H/N DONE AT 1642, READ 1726 + M1 OCCLUSION. CASE DISCUSSED WITH [facility], ACCEPTED FOR POSSIBLE THROMBECTOMY. EXCLUDED FROM TPA DUE TO CURRENT USE OF NOAC. FAILED NURSING SWALLOW SCREEN, NPO. GMTX-DG-RROA-OUT ESTIMATED 119 MINUTES. DEPARTED AT 1832
[2022-12-05 07:08] LABS: Prothrombin Time Whole Bld POC 16.4 sec (11.1-13.5); ~PT, ~INR - Anti Coag Clinic 1.4 (0.9-1.1)
== END 2022-12-02 18:32 | disposition short-term general hospital (02) ==
PROVIDERS: Emergency Provider Emergency Medicine; PCP Internal Medicine
DX: I63.9 Cerebral infarction, unspecified (principal); R47.01 Aphasia; R29.707 NIHSS score 7; Z20.822 Contact with and (suspected) exposure to COVID-19; Z20.828 Contact with and (suspected) exposure to other viral communicable diseases; Z79.899 Other long term (current) drug therapy; Z87.891 Personal history of nicotine dependence
CPT/HCPCS: 36415; 70450; 70496; 70498; 80048; 80076; 82077; 82947; 83735; 84484; 85025; 85610; 87635; 93005; 99285; Q9967